=== PATIENT | female | born 1980 | race Caucasian/White ===

== ENCOUNTER 2022-03-09 13:46 | Emergency (ER) | payer MEDICARE, MEDICAID, SELFPAY ==
[2022-03-09 13:56] VITALS: BP 112/80; PULSE 68; O2SAT 99
[2022-03-09 13:57] VITALS: BP 152/59; PULSE 64; RESP 15; TEMP 36.6; O2SAT 98; BMI 24.7
[2022-03-09 15:43] LABS: MANUAL DIFF FLAG NO
[2022-03-09 15:47] LABS: Basophils Percent Auto 0.2 % (0-2); Eosinophils Percent Auto 0.2 % (0-4); Hematocrit 36.5 % (37.0-47.0); Hemoglobin 12.4 g/dl (12.0-16.0); Imm Gran Abs Auto 0.04 X10*3/uL (0.00-0.03); Imm Gran Pct Auto 0.5 % (0.0-0.4); Lymphocytes Absolute Auto 0.9 X10*3/uL (1.2-4.9); Lymphocytes Percent Auto 11.1 % (20-40); Mean Corpuscular Hemoglobin 34.3 pg (27.0-33.0); Mean Corpuscular Volume 101.1 fL (80.0-98.0); Mean Platelet Volume 9.7 fL (9.4-12.3); Monocytes Absolute Auto 0.4 X10*3/uL (0.1-1.2); Monocytes Percent Auto 5.2 % (2-11); Neutrophils Percent Auto 82.8 % (45-73); Platelet Count 282 X10*3/uL (160-400); Red Blood Count 3.61 X10*6/uL (4.20-5.50); Red Cell Distribution Width 12.1 % (11.0-16.0); White Blood Count 8.5 X10*3/uL (4.8-10.8)
[2022-03-09 16:13] LABS: Alanine Aminotransferase 15 U/L (0-31); Albumin Level 4.7 g/dL (3.5-5.0); Alkaline Phosphatase 51 U/L (39-117); Anion Gap 15 (12-20); Aspartate Amino Transferase 16 U/L (5-31); Bilirubin Total 0.7 mg/dL (0.0-1.0); Blood Urea Nitrogen 13 mg/dL (9-16); Calcium 8.9 mg/dL (8.4-10.2); Carbon Dioxide 19 mmol/L (22-29); Chloride 104 mmol/L (96-108); Estimated Glomerular Filt Rate > 60; Glucose Random 146 mg/dL (60-115); Potassium 3.3 mmol/L (3.3-5.1); Sodium 135 mmol/L (135-145)
[2022-03-09] MEDS: 0.9 % Sodium Chloride 1,000 ML 999 ML IV (16:14)
--- NOTE | 2022-03-09 16:53 | ED.SEIZURE ---
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 As per the mother she did not eat breakfast or drink any water in did not take her medications this morning and states she also endorses that her daughter has 2-3 seizures when she is premenstrual. Patient is followed by the Neurology Department here at [facility] [place]. Mother denies any recent fever, chills and patient denies any urinary symptoms. Patient denies any head pain or neck pain. Related Data Allergies Allergy/AdvReac Type Severity Reaction Status Date / Time Unable to Assess Allergy Verified 03/09/22 15:02 Review of Systems Review of Systems: Pertinent positives and negatives as stated in HPI 10 point review of systems is otherwise negative. PMFSH Past Medical History Source: nursing notes reviewed Social History Social History Advance Directives: No Advance Directives Information Provided: Yes Physical Exam Vital Signs: Vital Signs: Last Vital Signs Temp 98 F 03/09/22 13:57 Pulse 64 03/09/22 13:57 Resp 15 03/09/22 13:57 BP 152/59 H 03/09/22 13:57 Pulse Ox 98 03/09/22 13:57 O2 Del Method 03/09/22 13:57 BMI result Body Mass Index 24.7 VITAL SIGNS: Reviewed. GENERAL: Well developed, well nourished, in no acute distress. HEAD: Normocephalic/atraumatic, no pain on palpation, no contusion/hematoma is/abrasions/lacerations EYES: PERRLA, EOMI EARS: Ext canals without abnormality, TMs non-bulging and non-erythematous NOSE: Nares patent bilateral OROPHARYNX: no oral lesions noted, posterior pharynx clear and non-erythematous without noted tonsillar enlargement/erythema/exudates NECK: Supple, no adenopathy LUNGS: Normal breath sounds. No adventitious sounds or accessory muscle use. SpO2<98> CARDIOVASCULAR: Regular rate and rhythm without noted murmurs ABDOMEN: Soft, non-tender, non-distended with bowel sounds. MUSCULOSKELETAL: No tenderness, deformities, or effusions noted on gross inspection. EXTREMITIES: No cyanosis, clubbing or edema. SKIN: Inspection of the skin reveals no rashes NEUROLOGIC: Alert and oriented x 4. Strength and sensation to light touch were grossly intact x 4. Course Course Course Narrative: 41-year-old female with history and clinical presentation consistent with seizure which resulted in a fall which mother states is why her daughter was transported to the hospital. There are no focal deficits and patient is otherwise doing well. Review of all investigations negative for acute findings, patient has tolerated oral intake since arrival and as per mother is at baseline. Signed out to Dr Eli f/kaleigh SANABRIA MDM - Seizure Lab Data Result diagrams: 03/09/22 15:39 03/09/22 15:39 Labs: Lab Results 03/09/22 03/09/22 Range/Units 15:39 15:39 WBC 8.5 (4.8-10.8) X10*3/uL RBC 3.61 L (4.20-5.50) X10*6/uL Hgb 12.4 (12.0-16.0) g/dl Hct 36.5 L (37.0-47.0) % MCV 101.1 H (80.0-98.0) fL MCH 34.3 H (27.0-33.0) pg MCHC 34.0 (31.0-35.0) g/dl RDW 12.1 (11.0-16.0) % Plt Count 282 (160-400) X10*3/uL MPV 9.7 (9.4-12.3) fL Immature Gran % (Auto) 0.5 H (0.0-0.4) % Neut % (Auto) 82.8 H (45-73) % Lymph % (Auto) 11.1 L (20-40) % Wayne % (Auto) 5.2 (2-11) % Eos % (Auto) 0.2 (0-4) % Baso % (Auto) 0.2 (0-2) % Lymph # (Auto) 0.9 L (1.2-4.9) X10*3/uL Wayne # (Auto) 0.4 (0.1-1.2) X10*3/uL Eos # (Auto) 0.0 (0.0-0.4) X10*3/uL Baso # (Auto) 0.0 (0.0-0.2) X10*3/uL Abs Immat Gran (auto) 0.04 H (0.00-0.03) X10*3/uL Absolute Neuts (auto) 7.0 (2.0-8.3) x10*3/uL Absolute Nucleated RBC 0.000 (0.0-0.012) X10*3/uL Nucleated RBC % (auto) 0.0 (0.0-0.2) /100WBC Sodium 135 (135-145) mmol/L Potassium 3.3 (3.3-5.1) mmol/L Chloride 104 (96-108) mmol/L Carbon Dioxide 19 L (22-29) mmol/L Anion Gap 15 (12-20) BUN 13 (9-16) mg/dL Creatinine 0.65 (0.5-1.4) mg/dL Estim Creat Clear Calc 100.0 Estimated GFR > 60 Random Glucose 146 H (60-115) mg/dL Calcium 8.9 (8.4-10.2) mg/dL Total Bilirubin 0.7 (0.0-1.0) mg/dL AST 16 (5-31) U/L ALT 15 (0-31) U/L Alkaline Phosphatase 51 (39-117) U/L Total Protein 7.0 (6.5-8.0) g/dL Albumin 4.7 (3.5-5.0) g/dL Discharge Plan Discharge Clinical Impression: Epileptic seizure, Fall Patient Disposition: Still a Patient Instructions: Recurrent Seizures in Adults (ED), Fall Prevention (ED) Additional Instructions: 1. Resume all home medications as prescribed. 2. Continue stay well hydrated special with water. 3. Please follow-up with your primary care provider in the next 1-2 days. Return to the ER for worsening symptoms. Referrals: Luis Fernando Schmitz MD [Primary Care Provider] -
[2022-03-09 17:38] LABS: Appearance Urine CLEAR; Color Urine YELLOW; Glucose Urine UA NEG (NEG); Leukocyte Esterase Urine TRACE (NEG); Nitrite Urine NEG (NEG); Specific Gravity - Urine <= 1.005 (1.005-1.025); Urine Blood NEG (NEG); Urine Ketones 15 MG/DL (NEG); Urine Protein NEG (NEG-TRACE)
[2022-03-09 17:45] LABS: UPreg QC Valid YES; Urine Pregnancy NEGATIVE (NEGATIVE)
[2022-03-09 18:09] LABS: Amorphous Sediment Urine 3+ /LPF; Bacteria Urine 1+ /LPF; Mucus Urine TRACE /LPF; RBC Urine 0-2 /HPF (0); Squamous Epithelial Cell Urine 1+ /LPF; WBC Urine 0-2 /HPF (0-4)
[2022-03-09 19:03] VITALS: BP 131/76; PULSE 69; RESP 20; TEMP 37.1; O2SAT 98
--- NOTE | 2022-03-09 19:49 | PC.NURSE ---
pt a&o, no sob or chest pain at discharge. reviewed discharge instructions with pt . pt verbalized understanding. Report to pt Nurse Dru HURD.
== END 2022-03-09 19:52 | disposition still patient (30) ==
PROVIDERS: Student in an Organized Health Care Education/Training Program; Emergency Provider Emergency Medicine; PCP Internal Medicine
DX: G40.909 Epilepsy, unspecified, not intractable, without status epilepticus (principal); Z91.81 History of falling
CPT/HCPCS: 36415; 80053; 81001; 81025; 85025; 99283

== ENCOUNTER 2022-03-18 12:02 | Emergency (ER) | payer MEDICARE, MEDICAID, SELFPAY ==
[2022-03-18 12:15] VITALS: BP 121/72; PULSE 71; O2SAT 100
[2022-03-18 12:16] VITALS: BP 110/68; PULSE 68; RESP 19; TEMP 36.6; O2SAT 99; BMI 23.9
--- NOTE | 2022-03-18 13:21 | ED_ITS ---
HPI - Anxiety General Chief Complaint: Seizure Stated Complaint: SZ Time Seen by Provider: 03/18/22 13:08 Source: patient and family (Mother, Manisha) Mode of arrival: EMS Limitations: no limitations History of Present Illness HPI narrative: 41-year-old female who presents emergency department for evaluation of 2 anxiety attacks. The patient's mother's here in the emergency room and the mother states that the patient had meningitis in 2003 and since that time she has short-term memory loss and seizures. Patient also has an anxiety disorder. The patient attends a day program (the [employer]). He was at her day program when she started shaking uncontrollably. The patient states that this was consistent with her anxiety. She then was then bring her food tray back to the kitchen when she had a another anxiety attack. She states she was shaking uncontrollably and was ?out of it ?. The patient states that she was at home she would of just stayed home and rested. However since she was at the program, the called an ambulance the patient was brought to the emergency department for evaluation of possible seizures. Patient states that these episodes were different than her seizure episodes and that these were anxiety attacks. According to the mother, the patient's clobazam was changed from 15 mg twice a day to 10 mg twice a day and since this time she has had more anxiety attacks. Also, the patient is going through menopause the mother believes that this may be triggering more anxiety attacks in the patient. The patient denies being suicidal or homicidal. She states she is feeling fine would like to go home if possible. complaint: anxiety Onset (ago): hour(s) (2) Symptoms: other (Shakiness) Severity: moderate Quality: intermittent Place: other (Day program) History of similar episodes: Yes Provoking factors: none known Relieving factors: nothing Exacerbating factors: nothing Associated symptoms: confusion and other (Shakiness) Related Data Previous Rx's Medication Instructions Recorded clobazam 10 mg tablet 15 mg PO BID 5 days #15 tabs 03/18/22 Allergies Allergy/AdvReac Type Severity Reaction Status Date / Time Unable to Assess Allergy Verified 03/09/22 15:02 Review of Systems Review of Systems: Yes all other systems are reviewed and are negative [facility] Past Medical History [facility] Narrative: Past medical history: Meningitis in 2003 causing memory deficits and seizures, anxiety, panic disorder, cognitive decline, hypothyroidism. Social history: Patient denies tobacco, alcohol and drug use. Social History Social History Advance Directives: No Advance Directives Information Provided: No Physical Exam Vital Signs: Vital Signs: Last Vital Signs Temp 98 F 03/18/22 12:16 Pulse 68 03/18/22 12:16 Resp 19 03/18/22 12:16 BP 110/68 03/18/22 12:16 Pulse Ox 99 03/18/22 12:16 O2 Del Method 03/18/22 12:16 BMI result Body Mass Index 23.9 Const: General: cooperative and no acute distress Orientation/consciousness: oriented to person and oriented to place Limitations: no limitations HEENT: Head: Yes normal to inspection, Yes normocephalic and Yes atraumatic Ears: external ears normal General nose exam: Normal external nose present Face and sinus: Yes normal facial exam Mouth: Normal oral and palatal mucosa present Throat: Yes posterior oropharynx normal Eyes: General: appearance normal, both eyes and all related structures Pupils: Equal, round and reactive pupils present Neck: Neck: Yes normal visual inspection, Yes no lymphadenopathy, Yes trachea midline and Yes supple Chest: Chest palpation & inspection: normal inspection of the chest and normal palpation of entire chest wall Resp: Effort & Inspection: normal respiratory effort and able to speak in complete sentences Auscultation: clear to auscultation bilaterally Cardio: Rate: regular rate Rhythm: regular rhythm Heart sounds: S1 normal heart sound present, S2 normal heart sound present and no murmurs GI: Inspection: Yes normal to inspection Palpation (GI): Soft to palpation, nontender and no guarding Auscultation: normal bowel sounds : General: Yes no CVA tenderness Back/Spine/Pelvis: Back: no CVA tenderness Skin: General skin exam: no rashes or lesions noted Neuro: General: oriented to person and oriented to place Cranial nerves: Yes CN's II-XII intact bilaterally and Yes Equal, round and reactive pupils present Cognition (Neuro): normal cognition Motor exam (neuro): 5/5 motor strength present throughout Extrem: General: Yes normal to inspection Psych: Appearance: grossly normal Speech and movement: Normal speech and movement present Affect: normal affect Attitude: cooperative Thought process: Normal thought process present Thought content: Normal thought content present Course Course Course Narrative: 41-year-old female with history of anxiety disorder and seizure disorder who presents emergency department for 2 anxiety episodes that occurred while she was at her day program. Patient had a recent change in her benzodiazepine to a low er dose and the mother believes that this is caused her to have more anxiety attacks. The patient's physical examination was unremarkable. I did discuss this with the patient and the patient's mother and I will increase the patient's clobazam to 15 mg twice a day, she was given a 5 day supply and she will need to talk to her neurologist to continue this higher dose. Patient and her mother were given verbal and printed instructions and discharged home. Discharge Plan Discharge Clinical Impression: Anxiety attack Patient Disposition: Home, Self-Care Additional Instructions: Continue your medications as prescribed by your doctor. I am increasing your clobazam from 10 mg twice a day back to 15 mg twice a day. I can only give you a 5 day supply of this medication therefore you will have to get your doctor yo prescribed a higher dose for you. Follow-up with your doctor in 2 days. Please return to the emergency department if your symptoms get worse or if you develop any symptoms that are concerning to you. Prescriptions: New clobazam 10 mg tablet 15 mg PO BID 5 Days Qty: 15 0RF
== END 2022-03-18 13:47 | disposition home or self-care (01) ==
PROVIDERS: Emergency Provider Emergency Medicine Emergency Medical Services
DX: F41.9 Anxiety disorder, unspecified (principal)
CPT/HCPCS: 99282; 99283

== ENCOUNTER 2022-04-15 11:24 | Emergency (ER) | payer MEDICARE, MEDICAID, SELFPAY ==
[2022-04-15 11:28] VITALS: BP 102/72; PULSE 83; O2SAT 99
[2022-04-15 11:38] VITALS: BP 81/49; PULSE 68; RESP 18; TEMP 36.6; O2SAT 99; BMI 24.5
--- NOTE | 2022-04-15 12:28 | ED_ITS ---
HPI - Seizure General Chief Complaint: Seizure Stated Complaint: SEIZURE Time Seen by Provider: 04/15/22 11:31 Source: patient, family (Mother ) and EMS Mode of arrival: EMS Limitations: other (Patient has short term memory loss and seizures ) History of Present Illness HPI Narrative: 41-year-old female presenting to the ER via EMS after she had anxiety attack versus seizure prior to arrival while she was a day program ([employer]) that she recently started a few months ago. Mother reports that she had meningitis in 2003 and since then has developed short-term memory loss and seizures. She also has anxiety disorder. She was at her day program today when she reports she fell to the ground and started shaking although she does not remember what else happened. She believes that she might have hit her head. She is not on any blood thinners. She denies any symptoms at this time. She denies any symptoms prior to the seizure. She reports that she occasionally gets seizures when she is going to start her menstrual period. Mother reports that since she was seen here on 03/18/2022 she has continued to use 10 mg of Clobazam although she dropped yesterday and did not actually take it. Mother reports she did take it this morning. Mother reports sick could be the cause due to missing 1 day. She reports she also had her Ativan increased from 2 mg at nighttime she will now be taking it 1 mg in the morning. She took that this morning. Patient denies any fevers, chills, dizziness, headaches, neck pain/stiffness, trouble swallowing or breathing, chest pain or shortness of breath, dyspnea on exertion, paresthesias, palpitations, nausea/vomiting/diarrhea constipation, black or bloody stools, recent travel or sick contacts, nasal congestion/rhinorrhea, cough, rashes, dysuria, hematuria, abnormal vaginal discharge, recent travel or sick contacts or any other symptoms complaints or concerns at this time. 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) Description of Episode: tonic-clonic movement -: second(s) Witnessed: Yes - by Other (see above ) Trauma: No Seizure History: Yes Place: While at the day program Possible Precipitating Event: other (See above) Associated symptoms: denies other symptoms Treatments prior to arrival: none Related Data Previous Rx's Medication Instructions Recorded clobazam 10 mg tablet 15 mg PO BID 5 days #15 tabs 03/18/22 Allergies Allergy/AdvReac Type Severity Reaction Status Date / Time Unable to Assess Allergy Verified 03/09/22 15:02 Review of Systems Review of Systems: Constitutional : No Fever, No Chills, No Night Sweats, No Fatigue, No Malaise ENT/Mouth : No Ear Pain, No Nasal Congestion, No Sinus Pain, No sore throat, No Rhinorrhea Eyes: No Eye Pain, No Swelling, No Redness, No Foreign Body, No Discharge, No Vision Changes Cardiovascular : No Chest Pain, No SOB, No Dyspnea on Exertion, No Orthopnea, No Palpitations Respiratory : No Cough, No Sputum, No Wheezing, No Dyspnea Gastrointestinal : No Nausea, No Vomiting, No Diarrhea, No Constipation, No abdominal Pain, No Hematochezia, No Melena Genitourinary : No Dysuria, No Urinary Frequency, No Urinary Incontinence, No Urgency, No Flank Pain Musculoskeletal : No joint pain, No Myalgias Skin : No lacerations Neuro : + seizures, No Focal weakness, no general weakness, No Numbness, No Paresthesias, No Loss of Consciousness, No Dizziness, No Headache Yes all other systems are reviewed and are negative [facility] Past Medical History Attestation statement: The following information was validated with the patient. Source: old records reviewed, obtained from family and nursing notes reviewed Social History Social History Advance Directives: No Physical Exam Vital Signs: Vital Signs: Last Vital Signs Temp 98 F 04/15/22 11:38 Pulse 68 04/15/22 11:38 Resp 18 04/15/22 11:38 BP 81/49 L 04/15/22 11:38 Pulse Ox 99 04/15/22 11:38 O2 Del Method 04/15/22 11:38 BMI result Body Mass Index 24.5 Vital signs have been reviewed as normal and appeared to be correct. Blood p ressure 81/49. Heart rate normal. Respiration rate normal. Temperature normal. Oxygen saturation normal. Appearance: Alert. Oriented X3. No acute distress. Head: Normal external exam. Normocephalic. Atraumatic. Able to rotate head bilaterally. Eyes: PERRLA. EOMI. No nystagmus noted. Conjunctiva and sclera normal. Eyelids normal. Corneal reflex normal. ENT: EAC normal. TM's Normal. Hearing normal. Pharynx normal. Uvula midline. tongue midline. Moist mucous membranes. No trismus noted. No drooling noted. No muffled voice noted. No nystagmus noted. Neck: Normal inspection. Neck supple. FROM. No adenopathy. Trachea midline. Thyroid Normal. No meningeal signs. No neck mass noted. CVS: Normal heart rate and rhythm. Heart sound normal. No murmurs noted. Pulses normal throughout. Respiratory: No respiratory distress. Painless inspiration. Breath sounds normal. No wheezes/rales/rhonchi noted. Chest nontender. No accessory muscle usage noted or decreased air movement noted. Abdomen: Soft and nontender. Bowel sounds normal in all 4 quadrants. No distention noted. No organomegaly noted. No visible injury noted. Back: No CVA tenderness. Full range of motion noted. Skin: Skin warm and dry. Normal skin color. Normal skin turgor. No rashes/lesions/lacerations noted. Extremities: No lower extremity edema. Extremities exhibit normal range of motion. Extremities nontender. Able to shrug shoulders bilaterally and keep up against resistance. Neuro: Oriented X 3. No motor deficit. No sensory deficit. Reflexes normal. Moving all extremities. No focal motor deficits. Cranial nerves II-XI intact bilaterally. Facial strength normal. Normal cognition. Speech normal. Gait normal. Strength 5/5 throughout. No pronator drift. No tremor noted. No fas ciculations noted. No rigidity noted. Muscle tone normal throughout. No asterixis noted. [id number] test normal. Heel to de la cruz test normal. Tandem gait normal. Does not sway with eyes open. Romberg test negative. Rapid alternating movement upper extremity normal. Rapid alternating movement lower extremity normal. Hand drop from overhead Misses face. Course Course Course Narrative: Mother does not want any labs or imaging done at this time. We did discuss some IV fluids due to patient's low blood sugar although mother is refusing. Patient is also agreeable to mother's decision reports that ?my mother takes good care of me?. She reports that she would not have taken her here to the ER if she was not at the day program. She would have kept her home if she was at home and this seizure happened. Therefore all labs and imaging canceled at this time. I explained to her if she has any new or worsening symptoms she should return immediately. MDM - Seizure Medical Records Attestation: I reviewed the patient's medical records. Lab Data Attestation: I reviewed the patient's lab results. Discharge Plan Discharge Clinical Impression: Epileptic seizure Patient Disposition: Left Against Medical Advice Instructions: Epilepsy (ED) Prescriptions: No Action clobazam 10 mg tablet 15 mg PO BID 5 Days Qty: 15 0RF Interventions: ED Discharge Assessment Last Done: 04/15/22 12:34
== END 2022-04-15 12:35 | disposition left against medical advice (07) ==
PROVIDERS: Emergency Provider Emergency Medicine
DX: G40.909 Epilepsy, unspecified, not intractable, without status epilepticus (principal)
CPT/HCPCS: 99282; 99283

== ENCOUNTER 2025-03-04 12:31 | Outpatient (AMB) | payer MEDICARE, MEDICAID, SELFPAY ==
--- NOTE | 2025-03-04 12:34 | MHC.OFFVIS ---
Intake Visit Reasons: 6 month Accompanied by: Mother Allergies divalproex sodium (From Depakote) Allergy (Unknown, Verified 03/04/25 12:34) Unknown lorazepam Allergy (Unknown, Verified 03/04/25 12:34) Unknown medroxyprogesterone (From Depo-Provera) Allergy (Unknown, Verified 03/04/25 12:34) Unknown phenytoin (From Dilantin) Allergy (Unknown, Verified 03/04/25 12:34) Unknown Medication List - Last Reconciled 03/04/25 by Priya Wood, BRENDAN buspirone 10 mg PO TID clobazam 10 mg PO BID clonazepam (Klonopin) 0.5 mg PO BID folic acid 1 mg PO DAILY hydroxyzine HCl 50 mg PO TID PRN 90 days lacosamide (Vimpat) 200 mg PO BID lamotrigine 350 mg PO BID levetiracetam 1,500 mg PO BID magnesium oxide 250 mg PO DAILY perampanel (Fycompa) 6 mg PO BID sertraline 50 mg PO DAILY HPI Comments Details: She had new VNS put in on 01/03/2025, placed behind ribs so she is unable to touch it. Having some GI symptoms, lot of eructation, has appointment with GI next month. Following with psychiatry and working with therapist. More depressed since sertraline dose decreased to 200mg by psychiatrist. Buspirone from PCP. Still very anxious, uses gummies sometimes which help calm her down some. Anxiety attacks and freezes up. Started PT, doing well, and likes going for the most part. Looking into starting day program with people closer to her age in [place]. Seizures stable on current medications. No major seizures. Had a few small seizures in 04/2024 after psychiatrist increased dose of levetiracetam and ran out of medication. No specific details of events could be provided, but was not grand mal. She was very bothered by feeling of VNS. Previously, said that she could feel VNS moving around inside when she moves in certain positions and she does not feel it is helping her at all. Had 2 small seizures around 11/2023 while lying in bed, no tongue bite or incontinence. Had multiple deaths in the family. Seeing psychiatrist and therapist at [facility] in [place], was given additional dose of hydroxyzine 25mg as needed. Has visiting nurse through [facility] once a month. VNS checked by Damaris 01/02/2024 and 08/31/2023, no changes. VNS checked and adjusted by Damaris 06/01/2023. Sz 08/27/2023 while getting hair done, stared to stare off and would not answer, assisted into chair. No tongue bite or incontinence. Admitted to [facility] for about 1 week in 06/2023. Ongoing anxiety since graduating from college, has trouble leaving house, and often hyperventilating. Seizures are both partial in which her eyes turn to the left, shake briefly, lasts about a minute. Also gets generalized convulsive seizure, sometimes with tongue biting or with a partial urinary incontinence. Previous work up at [facility] neurology. Apparently, the EEG showed multifocal seizures so there was no surgical consideration for epilepsy surgery. VNS implant, uses magnet on daily basis, keeps swiping the magnet to activate the VNS stimulator. Her MRIs in the past were apparently unremarkable, multiple lumbar punctures which were normal. She reports allergies to Depakote, being very mean on Dilantin, reactions to LZP. Her mother is her caregiver to the extent of even going in the shower to help her in the shower because she ends up having her so-called seizures in the shower. Becoming menopausal. [facility] Medical History (Updated 03/04/25 @ 12:39 by Priya Wood CNP) Depression Panic disorder Anxiety Partial seizure disorder Epilepsy Review of Systems Const Denies chills, Denies daytime sleepiness, Denies difficulty sleeping, Reports fatigue, Denies fever(s), Denies frequent falls, Reports headache(s), Denies increased appetite, Denies poor appetite, Denies snoring, Denies weakness, Denies weight gain and Denies weight loss Eyes Denies loss of vision ENT Denies vertigo, Denies dizziness, Reports headache(s) and Denies neck pain Card Denies chest pain at rest, Denies chest pain with activity, Denies syncope, Denies leg edema, Denies palpitations, Denies dyspnea and Denies dyspnea on exertion Resp Denies cough, Denies dyspnea, Denies dyspnea on exertion and Denies snoring GI Denies abdominal pain, Denies constipation, Reports heartburn, Denies diarrhea and Reports nausea Denies urinary frequency, Denies urinary incontinence and Denies urinary urgency Musc Denies abnormal gait, Denies back pain, Denies myalgias, Denies arthralgias, Denies neck pain, Denies numbness and Denies tingling Neuro Denies abnormal gait, Denies vertigo, Denies dizziness, Denies syncope, Denies frequent falls, Reports headache(s), Denies lack of coordination, Denies loss of vision, Reports memory loss, Denies numbness, Denies Other visual disturbances, Denies restless legs, Reports seizure-like activity, Denies tingling, Denies paresthesias, Reports tremor(s) and Denies weakness Psych Reports anxiety, Reports depression, Denies auditory hallucinations, Reports memory loss and Denies visual hallucinations Endo Reports fatigue and Denies palpitations Physical Exam Const Other: General Appearance:? normal, in no acute distress. Heart:? S1, S2 normal, no murmurs. Lungs:? clear anteriorly and posteriorly. Musculoskeletal:? normal. Extremities:? no edema. Psych:? alert, oriented, cognitive function intact, cooperative with exam. Neuro Other: Abnormal Neurological Findings:?Very anxious. Generalized tremor. Mental Status: alert and oriented X 3. Normal attention, orientation, memory, and affect. Cranial Nerves: Pupils are equal, round, and reactive to light. External ocular muscles are intact. Visual pritchett are full, no ptosis. Face is symmetrical, no facial weakness or droop. Facial sensations are normal. Tongue protrudes in midline. Palate elevates symmetrically. Shoulder shrugging is normal Motor Examination: Normal muscle tone, bulk and strength. No atrophy or fasciculations. No drift of the extended upper extremities. DTR 2+. Plantars are flexor. Sensory Exam: Normal light touch, temperature, pinprick, vibration, and joint-position sensations. Rhomberg sign is absent. Coordination: No ataxia. No titubation. Oncwtc-fz-[id number], ziwr-rotf-qjtz test, and rapid alternating movements were normal. Gait Exam: Within normal limits. Cerebellar Signs: Qzvuwd-lj-[id number] and sinz-wr-azha is normal. No dysdiadochokinesia. Extrapyramidal System: Generalized tremor. No rigidity with normal facial expressions. No bradykinesia. No bradyphrenia. Normal arm swing and posture. No propulsion or retropulsion. Speech: Normal. No dysphasia or dysarthria. Assessment & Plan Assessment & Plan (1) Epilepsy: Code(s): G40.909 - Epilepsy, unspecified, not intractable, without status epilepticus Category: Medical Qualifiers: Epilepsy type: unspecified Intractability: not intractable Status epilepticus: without status epilepticus Qualified Code(s): G40.909 - Epilepsy, unspecified, not intractable, without status epilepticus Plan: Continue Fycompa Tablet, 6 MG, 1 tablet twice a day Continue lamoTRIgine Tablet, 100 MG, 3.5 tablets twice a day Continue levETIRAcetam Tablet, 750 MG, 2 tablets twice a day Continue Vimpat Tablet, 200 MG, 1 tablet, Twice a day Continue cloBAZam Tablet, 10 MG, 1 tablet twice a day Continue hydrOXYzine HCl Tablet, 50 MG, 1 tablet as needed three times a day??? 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 (4) Status post VNS (vagus nerve stimulator) placement: Code(s): Z96.89 - Presence of other specified functional implants Category: Surgical Plan . Coding Level of Care Code Est Pt Level 4 (89210) Diagnoses Nonintractable epilepsy without status epilepticus, unspecified epilepsy type G40.909 Epilepsy type: unspecified Intractability: not intractable Status epilepticus: without status epilepticus Psychogenic nonepileptic seizure F44.5 Anxiety F41.9 Status post VNS (vagus nerve stimulator) placement Z96.89
--- OUTSIDE RECORDS SUMMARY | 2025-03-04 12:59 | XMS_ITS | Clinical Summary ---
Author Organization [facility] Address [address] [place] [id number] Care Team Providers Care Bucket Wash Operator Name Role Phone Shelton Espinoza MD Primary Care Provider [phone] Allergies Active Allergy Reactions Criticality Noted Date Comments Phenytoin Sodium Rash High 11/23/2005 Medications levETIRAcetam (Keppra) 500 mg tablet 3 tabs bid 2005 Active topiramate (Topamax) 100 mg tablet 3 TABLETS TWICE DAILY 2005 Active OXcarbazepine (TrileptaL) 300 mg tablet 3 TABLETS in AM after meal 2005 Active Active Problems Problem Noted Date Diagnosed Date 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 ([facility]/HCC V24, CMS/HCC V28) 2005 Immunizations Name Administration Dates Next Due Influenza trivalent, with pr eservative (Fluzone; Afluria) 6mo and older 07/13/2005 PPD Test 12/29/2001 Social History Tobacco Use Types Packs/Day Years Used Date Smoking Tobacco: Never Assessed Comments Unknown Sex and Gender Information Value Date Recorded Sex Assigned at Not on file Legal Sex Female 5:46 AM EST Gender Identity Not on file Sexual Orientation Not on file Plan of Treatment Health Maintenance Due Date Last Done Comments Breast Cancer Screening 1982 DTaP,Tdap,and Td Vaccines (1 - Tdap) 2001 Hepatitis B Vaccines (1 of 3 - 19+ 3-dose series) 2001 Cervical Cancer Screening: P ap Smear 04/14/2009 04/14/2006, 04/14/2006 Hepatitis C Screening 07/04/2022 Social Influencers of Health Screening 07/04/2022 COVID-19 Vaccine (1 - 2023-2 5 season) 2024 Depression Screening 08/01/2024 Influenza Vaccine (#1) 2025 07/13/2005 HIV Screening Completed 05/17/2005 HIB Vaccines Aged Out No longer eligi ble based on patient's age to complete this topic HPV Vaccines Aged Out No longer eligi ble based on patient's age to complete this topic Hepatitis A Vaccines Aged Out No long er eligible based on patient's age to complete this topic IPV Vaccines Aged Out No longer eligi ble based on patient's age to complete this topic MMR Vaccines Aged Out No longer eligi ble based on patient's age to complete this topic Meningococcal ACWY Vaccine Aged Out N o longer eligible based on patient's age to complete this topic Meningococcal B Vaccine Aged Out No l onger eligible based on patient's age to complete this topic Pneumococcal Vaccine: Pediatrics (0 to 5 Years) and At-Risk Patients (6 to 49 Years) Aged Out No longer eligible b ased on patient's age to complete this topic RSV Immunization Patients Under 20 months Aged Out No longer eligible b ased on patient's age to complete this topic Varicella Vaccines Aged Out No longer eligible based on patient's age to complete this topic Procedures Procedure Name Priority Date/Time Associated Diagnosis Comments HPV Routine 04/14/2006 HIV SCREENING Routine 05/17/2005 from Last 3 Months or Most Recently Relevant to Health Maintenance Results * Cervical Cancer Screening: HPV (04/14/2006) Cervical Cancer Screening: HPV no interpretation , abstracted Historical Provider HEALTH MAINTENANCE Final Result * HIV Screening (05/17/2005) HIV Screening abstracted us Historical Provider HEALTH MAINTENANCE Final Result from Last 3 Months or Most Recently Relevant to Health Maintenance Care Teams Bucket Wash Operator Relationship Specialty Start Date End Date Shelton Espinoza MD [address] [place] [address] PCP - General 01/17/06
--- OUTSIDE RECORDS SUMMARY | 2025-03-04 12:59 | XMS_ITS | Clinical Summary ---
Author Organization [facility] Address [address] [address] Phone Care Team Providers Care Operating Room Specialist Name Role Phone Laney Laura MD Primary Care Provider [phone] Allergies Active Allergy Reactions Criticality Noted Date Comments Dolasetron Mesylate Other (See Comments) 2003 agitation Phenobarbital Rash 02/10/2004 Phenytoin Other (See Comments) 02/09/2004 fever Medications cloNIDine HCL (CATAPRES) 0.2 MG tablet Take 0.2 mg by mouth daily. Active hydrOXYzine (ATARAX) 50 MG tablet Take 50 mg by mouth every 8 (eight) hours as needed for itching. Active busPIRone (BUSPAR) 7.5 MG tablet Take 7.5 mg by mouth 3 (three) times a day. Active lacosamide (VIMPAT) 150 mg Tab Take 200 mg by mouth 2 (two) times a day. Active folic acid (FOLVITE) 1 MG tablet Take 1 mg by mouth daily. Active magnesium oxide 250 mg (150 mg elemental) Tab Take 250 mg by mouth daily. Active clonazePAM (KLONOPIN) 0.5 MG tabletIndicatio ns:Takes 0.5mg every morning, 1mg every evening Take 0.5 mg by mouth 2 (two) times a day. Indications: Takes 0.5mg every morning, 1mg every evening Active sertraline (ZOLOFT) 50 MG tablet Take 3 tablets (150 mg total) by mouth daily. 90 tablet 2 06/11/2023 Active cloBAZam (ONFI) 10 mg Tab Take 1 tablet (10 mg total) by mouth 2 (two) times a day. 60 tablet 3 06/11/2023 Active lamoTRIgine (LAMICTAL) 100 MG IMMEDIATE release tablet Take 3.5 tablets (350 mg total) by mouth 2 (two) times a day. 210 tablet 2 06/11/2023 Active levETIRAcetam (KEPPRA) 750 MG tablet Take 2 tablets (1,500 mg total) by mouth 2 (two) times a day. 120 tablet 2 06/11/2023 Active perampanel 6 mg Tab Take 1 tablet (6 mg total) by mouth 2 (two) times a day. 60 tablet 3 06/11/2023 Active levothyroxine (SYNTHROID,LEVO THROID) 25 MCG tablet Take 1 tablet (25 mcg total) by mouth every morning. 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 Not on iban e 06/03/2023 Are you concerned about learning? Not on file 06/03/2023 No 06/03/2023 No 06/03/2023 Digital Access Answer Date Recorded No 06/03/2023 No 06/03/2023 Reliable internet access at home? Not on file 06/03/2023 Device with a working camera? Not on file Intimate Partner Violence Answer Date R ecorded Are you denied basic needs s uch as food, clothing, or medical care? No 06/03/2023 In the past 12 months have y ou been in a relationship with a person who hurts, threatens, or tries to control you? No 06/03/2023 Are you denied basic needs s uch as food, clothing, or medical care? No 06/03/2023 In the past 12 months have y ou been in a relationship with a person who hurts, threatens, or tries to control you? No 06/03/2023 Comments No Sex and Gender Information Value Date Recorded Sex Assigned at Not on file Legal Sex Female 6:29 PM EST Gender Identity Not on file Sexual Orientation Not on file Last Filed Vital Signs Vital Sign Reading Time Taken Comments Blood Pressure 99/69 06/11/2023 9:06 AM EST Pulse 78 06/11/2023 7:31 AM EST Temperature 36.5 C (97.7 F) 06/11/2023 7:31 AM EST Respiratory Rate 18 06/11/2023 7:31 AM EST Oxygen Saturation 96% 06/11/2023 7:31 AM EST Inhaled Oxygen Concentration - - Weight 50.1 kg (110 lb 7.2 oz) 06/05/2023 5:07 P M EST Height 152.4 cm (5') 06/06/2023 12:00 PM EST Body Mass Index 21.57 06/05/2023 5:07 PM EST Plan of Treatment Health Maintenance Due Date Last Done Comments Adult Td,Tdap Booster 1982 BLOOD PRESSURE 1982 DEPRESSION SCREENING 1994 HEPATITIS C SCREENING 2000 LIPID PANEL 2000 PNEUMOCOCCAL VACCINES (0-49 years) (1 of 2 - PCV) 2001 PAP SMEAR 11/10/2003 SMOKING STATUS SCREENING (On ce After 26 Yrs) 2008 DIABETIC EYE EXAM 09/21/2014 URINE MICROALBUMIN/CREATININ E RATIO 09/21/2014 MAMMOGRAM 2022 HEMOGLOBIN A1C 12/03/2023 06/04/2023 COVID-19 VACCINE ( - 2023-2 5 season) 2024 TSH LEVEL 06/04/2024 06/04/2023 HIV ONE-TIME SCREENING (18-6 5 YEARS) Completed 02/11/2004 HEPATITIS A VACCINES Aged Out No long er eligible based on patient's age to complete this topic HIB VACCINES Aged Out No longer eligi ble based on patient's age to complete this topic MENINGOCOCCAL VACCINES (ACWY) Aged Out No longer eligible based on patient's age to complete this topic MENINGOCOCCAL VACCINES (B) Aged Out N o longer eligible based on patient's age to complete this topic Medical Devices Implanted Type Area Senior Physician Device Identifier Shelf Expiration Date Model / Serial / Lot Stimulator-08/01 Implanted:08/01 (Quantity not on file) Stimulator Chest 106 / / Description:[employer]iPrescreens #220 model 106. VNS Procedures Procedure Name Priority Date/Time Associated Diagnosis Comments HEMOGLOBIN A1C Routine 06/04/2023 7:31 AM EDT TSH WITH REFLEX Routine 06/04/2023 7:31 AM EDT from Last 3 Months or Most Recently Relevant to Health Maintenance Results * TSH with reflex (06/04/2023 7:31 AM EDT) TSH 3.16 0.50 - 5.70 uIU/mL [facility] Blood 06/04/2023 7:31 AM EDT 06/04/2023 7:44 AM EDT us Aubrey Quach MD LAB BLOOD ORDERABLES Final Re sult Performing Organization Address City/State/[facility] Co de Phone Number [facility] [address] [place] [phone] * Hemoglobin A1c (06/04/2023 7:31 AM EDT) HEMOGLOBIN A1C 4.9 4.2 - 5.6 % [facility] Comment: HbA1c levels 5.7-6.4% represent pre-diabetes, indicating impaired glucose control and an increased risk of developing diabetes. The diagnostic HbA1c level for diabetes is 6.5% or greater. HbA1c is performed by the Cristal Rachele-quant immunoassay method which does not detect (incidental) hemoglobin variants. Hemoglobin electrophoresis should be ordered in patients with suspected hemoglobinopathies. CALC MEAN BLD GLUC 93 mg/dL [facility] Comment: The Calculated Mean Blood Glucose (CMBG) represents the estimated average glucose calculated from the measured hemoglobin A1c (HbA1c). There is no established normal range for the CMBG, however a 5.6% HbA1c (upper limit of normal) represents a CMBG of 114 mg/dL. Blood 06/04/2023 7:31 AM EDT 06/04/2023 7:44 AM EDT us Aubrey Quach MD LAB BLOOD ORDERABLES Final Re sult [facility] [address] [place] [phone] from Last 3 Months or Most Recently Relevant to Health Maintenance Insurance MEDICARE PART A & B [facility] MEDICARE PART A & B [place]ALTH MEDICARE PART A & B Member Subscriber Plan / Payer (Ef fective 2006-Present) Name:Char Villa Member ID:[id number] Relation to Subscriber:Self Name:Char Villa Subscriber ID:[id number] Payer ID:[id number] Group ID:Not on file Type:Medicare Address: [address] [employer] [address] & B [employer] MEDIC[facility] PART A & B HEALTH MEDICARE PART A & B [facility] MEDICARE PART A & B [facility] Advance Directives For more information, please contact: [phone] (9AM - 5PM [place], Tuesday-Tuesday) Documents on File Type Date Recorded Patient Instructor Of Education Expl anation Healthcare Proxy 06/14/2023 2:34 PM * Full Code (Latest Code Status on File) Date Activated Date Inactivated Comments 06/04/2023 12:32 AM Question Answer Comments Code Status Confirmed With: Family Care Teams Operating Room Specialist Relationship Specialty Start Date End Date Laney Laura MD [address] [place] [phone] PCP - General 01/29/14 Additional Source Comments The information contained in this document represents components of the legal health record. It is not the complete legal health record.[facility]
--- OUTSIDE RECORDS SUMMARY | 2025-03-04 12:59 | XMS_ITS | Clinical Summary ---
Author Organization [facility] Address [address] [place] [address] Care Team Providers [place] Health Officer Name Role Phone Luis Fernando Schmitz MD Primary Care Provider Allergies Active Allergy Reactions Criticality Noted Date Comments Dolasetron Mesylate Other (see comments) 2003 agitation Lamotrigine Rash 10/02/2024 Lorazepam Behavioral Problems, Emotional Distress,Hyperactivity,Panic Attacks,Seizure High 01/10/2004 Phenobarbital Rash 02/10/2004 Phenytoin Other (see comments),Rash High 02/09/2004 fever Valproic Acid Unknown 10/02/2024 Medications busPIRone (BUSPAR) 10 mg tablet 10 mg 3 times a day. Active sertraline (ZOLOFT) 100 mg tablet Take 100 mg by mouth 2 (two) times a day. Active folic acid (FOLVITE) 1 mg tablet Take 1 mg by mouth once a day. Active magnesium oxide (MAG-OX) 400 mg (241.3 mg mag) tablet Take 400 mg by mouth once a day. Active clonazePAM (KlonoPIN) 0.5 mg tablet Take 0.5 mg by mouth. Per pt take 0.5 mg in the a.m and 1.0 mg evening after dinner Active hydrOXYzine (ATARAX) 50 mg tablet SMARTSI Tablet(s) By Mouth 3 Times Daily PRN Active lacosamide (Vimpat) 200 mg tablet tabletIndicatio ns:Focal epilepsy with impairment of consciousness, intractable (HCC) Take 1 tablet (200 mg total) by mouth every 12 hours. 180 tablet 1 5 Active lamoTRIgine (LaMICtal) 100 mg tabletIndicatio ns:Focal epilepsy with impairment of consciousness, intractable (HCC) Take 3.5 tablets (350 mg total) by mouth 2 times a day. 630 tablet 3 5 Active cloBAZam (ONFI) 10 mg tabletIndicatio ns:Focal epilepsy with impairment of consciousness, intractable (HCC) Take 1 tablet (10 mg total) by mouth 2 times a day. 180 tablet 1 5 Active levETIRAcetam (KEPPRA) 500 mg tabletIndicatio ns:Focal epilepsy with impairment of consciousness, intractable (HCC) Take 1.5 tablets (750 mg total) by mouth 2 times a day. 270 tablet 3 5 Active Fycompa 6 mg tabletIndicatio ns:Focal epilepsy with impairment of consciousness, intractable (HCC) Take 1 tablet (6 mg total) by mouth 2 (two) times a day. 180 tablet 1 5 Active Keppra 750 mg tabletIndicatio ns:Focal epilepsy with impairment of consciousness, intractable (HCC) Take 2 tablets (1,500 mg total) by mouth 2 times a day. 360 tablet 3 5 025 Discontinued Active Problems Problem Noted Date Diagnosed Date Status post placement of VNS (vagus nerve stimulation) device 10/02/2024 Overview (02/08/2025): blogfoster M1000 Serial Number [id number] VNS interrogation: Output Current (mA): 1.75, Signal Frequency (Hz): 30, Pulse Width (usec): 500, Signal ON Time (sec): 30, Signal OFF Time (min): 3, Magnet Output Current (mA): 2, Magnet ON Time (sec): 60, Magnet Pulse Width (usec): 500, AutoStim Output Current (mA): 1.875, AutoStim Pulse Width (usec): 500, AutoStim ON Time (sec): 60, Tachycardia Detection ON/OFF: ON, Heartbeat Detection Sensitivity (1-5): 1, Perform Verify Heartbeat Detection (y/n): Y, Threshold for AutoStim (%): 20 System diagnostics: Output Current (OK/Low): OK, Current Delivered (mA): 1.75, Lead Impedance (OK/High/Low): OK, Impedance Value (Ohms): 2106, Battery Status Indicator (Color): 75-100% Assessment & Plan (02/08/2025 10:51 PM EDT): - post-generator replaced device interrogated and device diagnostics assessed, 75-100% battery status - no re-programing performed Assessment & Plan (10/02/2024 12:27 PM EST): - will refer to Dr. 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 ONSET: 2003, 23yo meningitis in college with STM with seizures SEMIOLOGY: 1) Typical FIAS: wavelike sensation in her head, sighs and freezes up/arm stiffen, ?turning to the left, and someone typically catches her may secondarily generalize. Has not had a GTC in a while. 4-5/mo 2) Recently, preceded by anxiety, she just falls down and she's aware, able to get up off the floor. 5-8/mo. WORK-UP: Jun 2023 cEEG [facility] [place] -- This 4-day senior living monitoring EEG captured at least 83 seizures. The majority emanate from the left temporal lobe, some from the right temporal lobe, and some have onsets that difficult to lateralize as seizure activity is seen in both temporal lobes. There are subtle clinical signs associated with most of the left temporal seizures as above, including occasional mild confusion. The record is otherwise abnormal due to abundant independent bilateral temporal discharges, often appearing as prolonged runs of LPDs on the left or brief bursts of discharges on the right. These findings are consistent with electrographic status epilepticus (at times with clinical correlation) and the ictal and interictal manifestations of bilateral independent temporal lobe epilepsy. December [address] w/o contrast No evidence of intracranial hemorrhage, mass effect or midline shift. Sep 2007 MRI Brain with and without contrast 1. Questionable T2 hyperintensity of the bodies of the hippocampi. Clinical correlation is recommended. 2. Inflammatory change in paranasal sinus. Air-fluid level in the right maxillary sinus. Assessment & Plan (10/02/2024 12:38 PM EST): - continue lacosamide 200mg BID - continue fycompa 6mg BID - continue lamotrigine 350mg BID - continue keppra 1500mg BID - continue clobazam 10mg BID - refer VNS generator replacement - will check ASM levels and discuss how the medication may be consolidated and address patient's excessive anxety. - consider possible trial of decreasing Keppra to assess interval change and also possibly consolidating or bringing down dosage of Lacosamide and Lamotrigine. - likely would still benefit from having a rescue medication, will discuss with family next visit - referred to specialty pharmacy for Fycompa as local pharmacy keep running out of medication Seizure precautions were reviewed as well as side effects of the medication(s). The patient knows to contact me should side effects occur. I spent a total of 75 minutes on the date of encounter, which included: Obtaining and/or reviewing separately obtained history Performing a medically appropriate exam and/or evaluation Counseling and educating the patient/family/caregiver Ordering medications, tests, procedures Documenting clinical information in the health record Anxiety disorder 08/24/2012 Dysthymic disorder 08/24/2012 Encounters Date Type Department Care Team Description 02/19/2025 Refill [facility] [address] [place] [id number] Brittney Cooper MD Focal epilepsy with impairment of consciousness, intractable (HCC) 02/18/2025 Refill [facility] [address] [address] Brittney Cooper MD Focal epilepsy with impairment of consciousness, intractable (HCC) 02/05/2025 3:00 PM EDT Office Visit [facility] [address] [address] Brittney Cooper MD Focal epilepsy with impairment of consciousness, intractable (HCC) (Primary Dx); Post-encephalitic syndrome; Panic disorder without agoraphobia; Generalized anxiety disorder; Dysthymic disorder; Cognitive disorder; Status post placement of VNS (vagus nerve stimulation) device 02/05/2025 Refill [facility] [address] [place] [address] Brittney Cooper MD Focal epilepsy with impairment of consciousness, intractable (HCC) 02/04/2025 Telephone [facility] [address] [place] [address] Telephone Intake, Staff PAC Clinical Questions-Kenneth from Last 3 Months Immunizations Immunization Administration Dates Next Due INFLUENZA, SPLIT VIRUS, TRIVALENT, PF 05/21/2013 Influenza, Trivalent, MDV, Injectable 06/12/2014 Family History Medical History Relation Name Comments Other Maternal Grandfather Family History of prostate cancer Relation Name Status Comments Maternal Grandfather Social History Tobacco Use Types Packs/Day Years Used Date Smoking Tobacco: Never Smokeless Tobacco: Never Tobacco Cessation:Counseling Given: Not Answered Comments:: Alcohol Use Standard Drinks/Week Comments Never 0 (1 standard drink = 0.6 oz pur e alcohol) Comments Unknown Sex and Gender Information Value Date Recorded Sex Assigned at Female 10/01/2024 9:56 PM EST Legal Sex Female 12:03 AM EDT Gender Identity Female 10/01/2024 9:56 PM EST Sexual Orientation Straight 10/01/2024 9: 56 PM EST Last Filed Vital Signs Vital Sign Reading Time Taken Comments Blood Pressure 125/73 02/05/2025 2:48 PM EDT Pulse 91 02/05/2025 2:48 PM EDT Temperature 36.8 C (98.2 F) 10/02/2024 11:02 AM EST Respiratory Rate 18 02/05/2025 2:48 PM EDT Oxygen Saturation 98% 10/02/2024 11:02 AM EST Inhaled Oxygen Concentration - - Weight 59 kg (130 lb) 02/05/2025 2:48 PM EDT Height 152.4 cm (5') 10/02/2024 11:02 AM EST Body Mass Index 25.39 10/02/2024 11:02 AM EST Plan of Treatment Upcoming Encounters Date Type Department Care Team (Late st Contact Info) Description 07/23/2025 3:30 PM EST Office Visit [facility] [address], [place] [phone] Brittney Cooper MD [address], [place] [id number] Health Maintenance Due Date Last Done Comments HIV Screening 1982 Hepatitis C Screening 1982 Medicare AWV 11/10/1983 Varicella Vaccines (1 of 2 - 13+ 2-dose series) 11/10/1995 Hepatitis B Vaccines (1 of 3 - 19+ 3-dose series) 2001 Pap Smear 10/10/2016 10/10/2013, 0908/2009, 04/01/2009, Additional history exists Cervical Cancer Screening 10/10/2018 HPV and Pap Smear 10/10/2018 10/10/2013, , 04/01/2009 Mammogram 2022 COVID-19 Vaccine ( season) 2024 Alcohol/Substance Use Screening 08/01/2024 Depression Screening and Follow-Up 08/01/2024 Social Drivers of Health Annual Screening 08/01/2024 Influenza Vaccine (#1) 2025 3, 06/09/2020, 08/15/2019, Additional history exists DTaP,Tdap,and Td Vaccines (2 - Td or Tdap) 07/14/2028 07/14/2018 RSV Vaccine (60+ years old and patients) (1 - 1-dose 75+ series) 2057 Pneumococcal Vaccine: Pediatric (0-5 Years) and At-Risk Patients (6-50 Years) Aged Out 08/25/2010 No longer eligible based on patient's age to complete this topic Procedures * Due to [place] state law, this organization might not be sharing negative HIV tests. Procedure Name Priority Date/Time Associated Diagnosis Comments PAP W/REFLEX HPV, CONVERSION Routine 10/10/2013 11:18 AM EDT from Last 3 Months or Most Recently Relevant to Health Maintenance Results * Due to [place] state law, this organization might not be sharing negative HIV tests. * Pap w/Reflex HPV (10/10/2013 11:18 AM EDT) Path Procedure TPGAS ([id number]) 1 Edited by: [id number] - [address] [facility] ANATOM[facility] PATH[facility] - [facility] Specimen Labeled As: 1 CERVICAL/ENDOCERVI MIAN CYTO MATERIAL - Edited by: [id number] - 111[address] [facility] ANATOMIC PATHOLOGY - [facility] THREE Diagnosis ThinPrep Pap Test Adequacy: Satisfactory for evaluation Interpretation: Negative for Intraepithelial Lesion or Malignancy Shift in belkis suggestive of bacterial vaginosis Remarks/Recommenda tions: This is the result of a morphological screening test with an inherent probability of a false negative interpretation. HPV testing in combination with a morphological Pap test reduces the probability of a serious cervical epithelial abnormality in patients over age 30 and is cost-effective. Screening guidelines can be found in Journal Lower Genital Tract Disease 17(5):S1-S27 (2013). This Pap test was examined in accordance with the [facility] written policy, which incorporates all CLIA mandates. This Pap test was examined by the [facility] System, [employer], [place], [place]. Edited by: [id number] [phone] [phone] ANATOMIC PATHOLOGY - BI[facility] THREE Gynecologic Clinical Data Specimen source:, THINPREP (VAGINAL, CERVICAL AND ENDOCERVICAL) [facility] ANATOM[facility] PATHOLOGY - [facility] Gynecologic Clinical Data First date of LMP:, 09/01/13 [facility] - [facility] Pathology Codes Client Order Code:, [email or web address] [facility] - [facility] Pathology Codes Bill Type:, CLIENT [facility] - [facility] Marker 1 NILM,NILM [facility]AT[facility] - [facility] Marker 2 QCKF,QC [facility] - [facility] Marker 3 [facility] ANATOMIC PATHOLOGY - [facility] THREE Cc Results To KAREN JULIO REF [id number] [facility]AT[facility]OLOG[facility] - [facility] Signature REPORT SIGNED: MARIANO FERNÁNDEZ 10/22/13 [facility] - [facility] Sign Out Audit MARIANO FERNÁNDEZ [id number] FINAL [place] [phone] [id number] [facility]ATOM[facility] PATHOLOG[facility] - [facility] Cytology / Unknown 4 11:18 AM EDT 10/15/2013 11:18 AM EDT us Laney Laura MD LAB HISTORICAL RESULTS Final Result [facility] - [facility] [address] [place] [address], [place] from Last 3 Months or Most Recently Relevant to Health Maintenance Insurance [facility] MEDICARE Care Teams County Health Officer Relationship Specialty Start Date End Date Luis Fernando Schmitz MD [address] [place] [address] PCP - General Internal Medicine 02/28/24
== END 2025-03-04 13:12 | disposition home or self-care (01) ==
LOC: HO.HSM 12:32
PROVIDERS: PCP Internal Medicine; Referring Provider Internal Medicine; Visit Provider Registered Nurse
DX: F44.5 Conversion disorder with seizures or convulsions (principal); F41.9 Anxiety disorder, unspecified; Z96.89 Presence of other specified functional implants
CPT/HCPCS: 99214

== ENCOUNTER → 2025-03-04 12:31 | Outpatient (BNVA) | payer MEDICARE, MEDICAID, SELFPAY | PROVIDERS: PCP Internal Medicine; Referring Provider Internal Medicine; Visit Provider Registered Nurse | DX: F44.5 Conversion disorder with seizures or convulsions (principal); G40.909 Epilepsy, unspecified, not intractable, without status epilepticus; F41.9 Anxiety disorder, unspecified; Z96.89 Presence of other specified functional implants; Z79.899 Other long term (current) drug therapy | CPT/HCPCS: 99212 ==

== ENCOUNTER 2025-04-26 19:35 | Inpatient (IN) | payer MEDICARE, MEDICAID, SELFPAY ==
--- OUTSIDE RECORDS SUMMARY | 2025-04-24 14:20 | XMS_ITS | Encounter Summary ---
Author Organization [facility] Address [address] [place] [address] Care Team Providers Care Measurement Operator Name Role Phone Shelton Espinoza MD Primary Care Provider [phone] Reason for Visit * Reason Comments Altered Mental Status * Auth/Cert (Routine) Specialty Diagnoses / Procedures Referred By Contac t Referred To Contact Diagnoses Agitation History of seizure Altered mental status, unspecified altered mental status type AMS (altered mental status) Procedures . Efrain Medina MD [address] [place] [address] Phone: tel: fax: [facility] [address] [place] [phone] Phone: tel: Referral ID Status Reason Start Date Expiration Date Visits Re quested Visits Authorized [id number] 1 1 Encounter Details Date Type Department Care Team (Latest Contact Info) Description 04/24/2025 2:20 PM EDT - 04/26/2025 7:23 PM EDT Hospital Encounter [facility] [address] [place] [phone] Lacey Diaz MD [address] [place] [phone] Abrahan Castellanos MD [address] [place] [phone] Jose Lacy MD [address] [place] [phone] Efrain Medina MD [address] [place], [place] [id number] Lam Cortez MD [address] [place], [place] [phone] Dick Spivey MD [address] [place] [phone] Altered mental status, unspecified altered mental status type (Primary Dx); Agitation; History of seizure; Generalized nonconvulsive epilepsy with intractable epilepsy ([facility] V24, [facility] V28) Discharge Disposition: Home or Self Care Social History Tobacco Use Types Packs/Day Years Used Date Smoking Tobacco: Never Passive Smoke Exposure: Never Smokeless Tobacco: Never Tobacco Cessation:Counseling Given: Not Answered Food Risk Answer Date Recorded Within the past 12 months we worried whether our food would run out before we got money to buy more. Not asked 04/26/2025 Within the past 12 months th e food we bought just didn't last and we didn't have money to get more. Not asked 04/26/2025 Interpersonal Safety Answer Date Record ed Physical Abuse 04/26/2025 Verbal Abuse 04/26/2025 Comments Unknown Sex and Gender Information Value Date Recorded Sex Assigned at Not on file Legal Sex Female 5:46 AM EST Gender Identity Not on file Sexual Orientation Not on file documented as of this encounter Last Filed Vital Signs Vital Sign Reading Time Taken Comments Blood Pressure 107/71 04/26/2025 4:11 PM EDT Pulse 74 04/26/2025 4:11 PM EDT Temperature 36.9 C (98.4 F) 04/26/2025 3:50 PM EDT Respiratory Rate 20 04/26/2025 3:50 PM EDT Oxygen Saturation 100% 04/26/2025 4:11 PM EDT Inhaled Oxygen Concentration - - Weight 59.9 kg (132 lb 0.9 oz) 04/26/2025 6:00 A M EDT Height 152.4 cm (5') 04/24/2025 5:57 PM EDT Body Mass Index 25.79 04/24/2025 5:57 PM EDT documented in this encounter Discharge Instructions * Discharge Instructions* DANIEL Astorga - 04/26/2025 5:47 PM EDT Avoid marihuana use Follow up with Neurology in 2-4 weeks * Attachments The following attachments cannot be sent through Care Everywhere. * Perampanel (Tristanian) * Fluvoxamine (Tristanian) * Clobazam (Tristanian) * Lacosamide (Tristanian) documented in this encounter Medications at Time of Discharge cloBAZam (ONFI) 10 mg tabletIndications:H istory of seizure,Generalized nonconvulsive epilepsy with intractable epilepsy (CMS/HCC V24, CMS/HCC V28) Take 1 tablet (10 mg total) by mouth 2 (two) times a day. Max Daily Amount: 20 mg 60 tablet 04/26/2025 fluvoxaMINE (LUVOX) 100 mg tablet Take 1 tablet (100 mg total) by mouth at bedtime. 30 each 04/26/2025 lacosamide (VIMPAT) 200 mg tablet tablet Take 1 tablet (200 mg total) by mouth 2 (two) times a day. Max Daily Amount: 400 mg 60 tablet 04/26/2025 lamoTRIgine (LaMICtal) 25 mg tablet Take 14 tablets (350 mg total) by mouth 2 (two) times a day. 840 each 04/26/2025 levETIRAcetam (KEPPRA) 750 mg tablet Take 2 tablets (1,500 mg total) by mouth 2 (two) times a day. 120 each 04/26/2025 sertraline (ZOLOFT) 25 mg tablet Take 1 tablet (25 mg total) by mouth 1 (one) time each day for 3 doses. 3 each 04/28/2025 sertraline (ZOLOFT) 50 mg tablet Take 1 tablet (50 mg total) by mouth 1 (one) time each day for 1 dose. 1 each 04/27/2025 5 perampanel (FYCOMPA) 6 mg tablet Take 1 tablet (6 mg total) by mouth 2 (two) times a day. Max Daily Amount: 12 mg 60 tablet 04/26/2025 5 documented as of this encounter Ordered Prescriptions Prescription Sig Dispense Quantity Refills Last Filled Start Date End Date sertraline (ZOLOFT) 50 mg tablet Take 1 tablet (50 mg total) by mouth 1 (one) time each day for 1 dose. 1 each 04/27/2025 sertraline (ZOLOFT) 25 mg tablet Take 1 tablet (25 mg total) by mouth 1 (one) time each day for 3 doses. 3 each 04/28/2025 5 fluvoxaMINE (LUVOX) 100 mg tablet Take 1 tablet (100 mg total) by mouth at bedtime. 30 each 04/26/2025 5 perampanel (FYCOMPA) 6 mg tablet Take 1 tablet (6 mg total) by mouth 2 (two) times a day. Max Daily Amount: 12 mg 60 tablet 04/26/2025 lamoTRIgine (LaMICtal) 25 mg tablet Take 14 tablets (350 mg total) by mouth 2 (two) times a day. 840 each 04/26/2025 lacosamide (VIMPAT) 200 mg tablet tablet Take 1 tablet (200 mg total) by mouth 2 (two) times a day. Max Daily Amount: 400 mg 60 tablet 04/26/2025 cloBAZam (ONFI) 10 mg tabletIndications:H istory of seizure,Generalized nonconvulsive epilepsy with intractable epilepsy (CMS/HCC V24, CMS/HCC V28) Take 1 tablet (10 mg total) by mouth 2 (two) times a day. Max Daily Amount: 20 mg 60 tablet 04/26/2025 levETIRAcetam (KEPPRA) 750 mg tablet Take 2 tablets (1,500 mg total) by mouth 2 (two) times a day. 120 each 04/26/2025 5 documented in this encounter Discharge Disposition Disposition Code Departure Means Destination Comment s Home or Self Care Wheelchair documented in this encounter Progress Notes * Ruchi Crabtree RN - 04/26/2025 7:13 PM EDT Pt discharged home with mom and dad. Both parents upset that pt was being discharged and felt she was not ready and mentally unstable. I informed mom and dad that psychiatry evaluated pt this morningand deemed her capable to make medical decisions and stated she did not meet criteria for inpatientpsych bed/section 12. I informed parents that they can bring her to another hospital that has inpatient psych for a 2nd opinion. I discussed pt's med list and tapering schedule with parents. I wheeled pt outside to her parents car. * Mariluz Farrar LCSW - 04/26/2025 2:49 PM EDT Sw received a call from [facility] ext [phone] she stated that the pt is apart of there community outreach program she was looking for an update on her d/c plan tw let her know pt was not medically cleared but she was seen by psych and has medical decision making capacity * Jemima Prado, IZZY - 04/26/2025 1:44 PM EDT 04/26/2025 @ 1:46 PM EDT Nutrition Initial Assessment Reason for RD Intervention: Assessment Type: Nutrition Trigger Reason for Assessment: High MST Score Anthropometrics: Height: 152.4 cm (60 ) Weight: 59.9 kg (132 lb 0.9 oz) BMI (Calculated): 25.8 BMI Class: Overweight IBW (lbs): 100 ABW Needed: No Current Diet and Supplements: Dietary Orders (From admission, onward) Start Ordered 04/25/25 1721 Adult diet [facility]; General; Regular Diet effective now Question Answer Comment Location [facility] Diet Type (req) General General Diet Regular 04/25/25 1720 History of presenting illness: Patient is a 44 y.o. female with a history of Past Medical History: Diagnosis Date Seizures (CMS/HCC V24, CMS/HCC V28) History reviewed. No pertinent surgical history. admitted 04/24/2025 with AMS (altered mental status). Food/Nutrition History: Previously prescribed diets: (pt was unsure of weight loss prior to admission per nursing screening.) Social Influencers of Health & Nutrition - Hunger Vital Signs: Within the past 12 months we worried whether our food would run out before we got money to buy more: Not asked Within the past 12 months the food we bought just didn't last and we didn't have money to get more: Not asked Who obtained answers? Unable to complete at this time. Assistance: Unable to determine at this time Weight History: Wt Readings from Last 10 Encounters: 04/26/25 59.9 kg (132 lb 0.9 oz) Subjective Assessment: Pt admitted for altered mental status and seizure activity, family trying to wean pt off Zoloft. Psychology and neurology following. Normal EEG, no acute findings on head CT. No BM since admission. Skin intact. Weights: 59.9 04/26 standing, 59 kg stated 04/24 Nutrition-Related Lab Values: Results from last 7 days Lab Units 04/26/25 0542 04/24/25 1741 04/24/25 1518 SODIUM mmol/L 141 -- 139 POTASSIUM mmol/L 4.1 -- 3.6 MAGNESIUM mg/dL -- -- 2.2 CHLORIDE mmol/L 109 -- 107 CO2 mmol/L 26 -- 26 BUN mg/dL 9 -- 15 CREATININE mg/dL 0.65 -- 0.50 EGFR mL/min/1.73m2 113 -- 120 CALCIUM mg/dL 8.9 -- 8.6 POCT GLUCOSE -- < > -- GLUCOSE mg/dL 88 -- 73 WBC AUTO K/mcL 7.3 < > -- < > = values in this interval not displayed. No results found for: LIPASE Medications: cloBAZam, 10 mg, oral, BID clonazePAM, 0.5 mg, oral, Daily clonazePAM, 1 mg, oral, Nightly fluvoxaMINE, 100 mg, oral, Nightly hydrOXYzine pamoate, 50 mg, oral, TID lacosamide, 200 mg, oral, BID lamoTRIgine, 350 mg, oral, BID levETIRAcetam, 1,500 mg, oral, BID [START ON 04/28/2025] sertraline, 25 mg, oral, Daily sertraline, 50 mg, oral, Daily CONTINUOUS: PRN medications: acetaminophen, bisacodyL, LORazepam Food/Nutrition-Current Status: Intake Type: P.O. Current Diet Status: Appropriate Intake Amount (%): Unable to Assess Intake Assessment: Unable to Assess Main IVF: None Propofol?: No Nutrition Focused Physical Findings: Overall Appearance: unable to assess, staff in with pt Skin: intact (per [employer] charting) Nutrition Diagnosis: Code Type: None Identified Status: New Diagnosis: No Acute Nutrition Dx Nutrition Interventions: Collaboration and Referral of Nutrition Care Collaboration and Referral of Nutrition Care: Collaborate with Other Providers (monitor intake, addnutrition supplement if intake is less than 60% of meals) Nutrition Education No need for education at this time Goals: Patient will consume greater than or equal to 75% meals., Monitor/control glucose levels, Electrolytes within normal range., Maintain weight., Stooling appropriately., and Maintain skin integrity. Coordination of Patient Care: Discussed with RN via [employer] Secure Chat/Haiku. Monitoring/Evaluation: Follow Up: Nutrition Priority Level: Moderate RD remains available and will continue to follow. Signature: Jemima Prado RD * Mariluz Farrar LCSW - 04/26/2025 11:54 AM EDT 04/26/25 1154 Initial Transition Plan Initial Transition Plan Home Back up Transition Plan Back up Transition plan Home ED Transition Plan ED Transition Plan Home w/Community Resources Discharge Planning Living Arrangements Family members Type of Residence Private residence Assistive Devices None Support Systems Parent;Children Medication Coverage Has Med Coverage Under Insurance Plan Yes Medication Affordability No concerns related to payment for meds Anticipated Discharge Needs Home Health Social Work Discipline following for SNF placement Cement Crusher Operator Informed Choice Informed Choice Given? Yes Transportation Transportation at discharge Family Final Discharge Disposition Home or Self Care Time Spent Time Spent (minutes) 20 minutes Sw met with the pt to confirm demographics pt states that she lives with her mother and daughter housing is safe she is able to return pt states that she lives on the 3rd floor pt is not a [place] she does not use O2 in the home no DME preferred pharmacy [facility] [place] sw will follow for d/c planning * Milagro Nunez MD - 04/26/2025 9:06 AM EDT Connected to patient's room via I-pad with help from quality assurance/r&d lab technician; assistance much appreciated. Patient consented verbally to visit via Telehealth video conferencing modality. Patient educated asto likely differences between Telehealth care and face to face care. Patient informed of the risks and benefits of using Telehealth services and procedures and likely risks and benefits of using alternatives to Telehealth services. Patient informed of the right to refuse Telehealth services at any time without jeopardizing his/her right to future care, services or benefits. Patient was informed that he/she is being seen solely by Milagro Nunez MD today via secure audio/visual connection in alocked virtual exam room. Persons present on patient's end: Patient Persons present on provider's end in [place]: Milagro Nunez MD CHART REVIEWED, PATIENT INTERVIEWED. CHIEF COMPLAINT: AMS Time spent on encounter: 19 min (14 min face to face, 5 min in chart review and documentation) Billing: [facility] HISTORY OF PRESENT ILLNESS Char Villa is a 44 y.o. female with psychiatric history significant for anxiety, depression, andpanic and medical history significant for but not limited to epilepsy, DM, cognitive disorder, encephalitis, GERD, hypothyroidism, and VNS device placement who was admitted for altered mental status.Psychiatry was consulted for complex psych history. The patient states that she is doing okay andis better than yesterday. She feels that her confusion tends to be worse in the morning time, but she is feeling more clear than yesterday. She knows that she is in the hospital because of her seizures and falls. She is hoping to be able to go home soon. She feels less anxious than before, but her mood is still a little low. She denies any panic attacks over the past day. She expressly denies anyparanoia at present; she trusts and loves her family members. She denies any AVH. The patient denies any suicidal ideations, plan, or intent. REVIEW OF SYSTEMS CONSTITUTIONAL: The patient denies fevers, chills, sweats and body ache. HEENT: Denies SMITH, blurry vision, eye pain, tinnitus, vertigo, gingival bleeding, sore throat, neck or thyroid masses. RESPIRATORY: Denies cough, sputum, hemoptysis. CARDIAC: Denies chest pain, pressure, palpitations, irregular heartbeats. Denies lower extremity edema. GASTROINTESTINAL: Denies abdominal pain, changes in bowel habits or any bleeding on toilet paper. GENITOURINARY: Denies dysuria, hematuria, nocturia or frequency. NEUROLOGIC: Denies headaches, dizziness, syncope. MUSCULOSKELETAL: Negative for arthritis. Denies muscle weakness. No limitation in range of motion. VASCULAR: Denies claudication and cramping. ENDOCRINOLOGY: Denies heat or cold intolerance. HEMATOLOGY: Denies easy bleeding or blood transfusion. DERMATOLOGY: Denies changes in moles or pigmentation changes. Psychiatric ROS: Depression: See HPI. Nery: The patient denies elevated/expansive mood, decreased need for sleep, grandiosity, pressuredspeech, flight of ideas, distractibility, increase in goal directed activity, and hypersexuality. Psychosis: The patient denies audio or visual hallucinations, delusions, thought broadcasting, thought insertion, delusions of reference, catatonia, or disorganized speech or behavior. Anxiety: See HPI. Panic: See HPI. PTSD: The patient does not endorse any current s/s related to PTSD. OCD: The patient denies intrusive thoughts, repetitive behaviors, counting, checking, washing, symmetry, or grouping and ordering that take up more than 1 hour of the day. Eating Disorder: The patient denies feeling overweight, excessive dieting or exercise to lose weight, overuse of laxatives, binging/purging behaviors, and amenorrhea. MEDICAL HISTORY Non-psychiatric medical history: Past Medical History: Diagnosis Date Seizures ([facility] V24, [facility] V28) Current medications: cloBAZam, 10 mg, oral, BID clonazePAM, 0.5 mg, oral, Daily clonazePAM, 1 mg, oral, Nightly fluvoxaMINE, 100 mg, oral, Nightly hydrOXYzine pamoate, 50 mg, oral, TID lacosamide, 200 mg, oral, BID lamoTRIgine, 350 mg, oral, BID levETIRAcetam, 1,500 mg, oral, BID [START ON 04/28/2025] sertraline, 25 mg, oral, Daily sertraline, 50 mg, oral, Daily ALLERGIES: Allergies Allergen Reactions Phenytoin Sodium Rash Dolasetron Agitation Phenobarbital RASH Valproic Acid UNKNOWN MSE: Appearance: Alert and oriented to person, type of place, and time with some of situation. Appears stated age, well groomed. Pleasant and cooperative. Adequate eye contact. No psychomotor agitation orretardation. No evidence of EPS. Wears glasses. Muscle tone/station: WNL. Orientation: See above. Attention and Concentration: Mildly confused at times. Speech: Normal rate, rhythm, volume, and tone. Mood: Better. Affect: Mostly euthymic with access to full range, mood congruent. No lability noted. Thought Process: Only mildly confused today. No FOI or COLLEEN. No thought blocking. Thought Content: Denies suicidal/homicidal ideation. Denies auditory/visual hallucinations. No delusions. No paranoia. Perception/associations: Denies hallucinations, somatic complaints, or tactile disturbances Suicidal Ideations: Pt denies SI, intent, or plan. Low acute risk. Currently is future oriented, motivated for treatment, and compliant with medications. Homicidal Ideations: Pt denies HI, intent, or plan. Low acute risk. No history of violence. No access to firearms. Behavior: No abnormal behavior during interview. Fund of Knowledge: Appropriate for age and level of education Intellect/Memory: Estimated as average based on interview. Immediate, recent, and remote memory is grossly intact. Language: No deficits Judgment/Insight: fair at present. Musculoskeletal Exam: Movement: [x]normal []abnormal [-]dyskinesias [-]tremors [-]tics Station: [x]upright []hyperflexed/stooped []hyperextended Muscle strength [x]appears normal [-]appears abnormal Muscle tone: [x]normal [-]muscle rigidity LABS: Admission on 04/24/2025 Component Date Value Ref Range Status WBC 04/24/2025 11.5 (H) 4.8 - 10.8 K/mcL Final RBC 04/24/2025 3.90 3.80 - 4.80 M/mcL Final Hemoglobin 04/24/2025 12.2 11.5 - 16.0 g/dL Final Hematocrit 04/24/2025 37.6 35.0 - 47.0 % Final MCV 04/24/2025 97.2 79.0 - 98.0 FL Final MCH 04/24/2025 31.5 27.0 - 32.0 pcg Final MCHC 04/24/2025 32.4 32.0 - 37.0 g/dL Final RDW 04/24/2025 12.9 11.0 - 15.0 % Final Platelets 04/24/2025 324 130 - 400 K/mcL Final MPV 04/24/2025 9.2 7.0 - 11.0 FL Final NRBC 04/24/2025 0.0 <1.0 % Final NRBC Absolute 04/24/2025 0.00 <0.10 K/mcL Final Sodium 04/24/2025 139 133 - 145 mmol/L Final Potassium 04/24/2025 3.6 3.5 - 5.5 mmol/L Final Chloride 04/24/2025 107 96 - 110 mmol/L Final CO2 04/24/2025 26 21 - 32 mmol/L Final Anion Gap 04/24/2025 6 3 - 11 Final Glucose 04/24/2025 73 70 - 100 mg/dL Final BUN 04/24/2025 15 5 - 25 mg/dL Final Creatinine 04/24/2025 0.50 0.50 - 1.10 mg/dL Final eGFR 04/24/2025 120 >=60 mL/min/1.73m2 Final Calculation based on the Chronic Kidney Disease Epidemiology Collaboration (CKD- EPI) equation refitwithout adjustment for race. BUN/Creatinine Ratio 04/24/2025 30.0 Final Calcium 04/24/2025 8.6 8.5 - 10.5 mg/dL Final hCG Qual 04/24/2025 Negative Negative Final Magnesium 04/24/2025 2.2 1.9 - 2.6 mg/dL Final High Sensitivity Troponin I 04/24/2025 4 <=54 ng/L Final TSH 04/24/2025 2.23 0.40 - 4.00 mcIU/mL Final Ethanol Level 04/24/2025 <3 0 - 10 mg/dL Final Amphetamine Screen, Ur 04/24/2025 Negative Negative Final Certain OTC medications containing ephedrine, phenylephrine, pseudoephedrine and phenylpropanolamine can cause false positive results. Barbiturate Screen, Ur 04/24/2025 Negative Negative Final Benzodiazepine Screen, Ur 04/24/2025 Positive (A) Negative Final Cocaine Screen, Ur 04/24/2025 Negative Negative Final Opiate Screen, Ur 04/24/2025 Negative Negative Final Cannabinoid (THC) Screen, Ur 04/24/2025 Positive (A) Negative Final Specimens from patients taking pantoprazole sodium (Protonix) have been shown to produce false positive results. Oxycodone Screen, Ur 04/24/2025 Negative Negative Final Fentanyl, Ur 04/24/2025 Negative Negative Final Specific [place] Urine 04/24/2025 1.021 1.003 - 1.030 Final pH, Urine 04/24/2025 6.5 5.0 - 8.0 pH Final Leukocytes, Urine 04/24/2025 Trace (A) Negative Final Nitrite, Urine 04/24/2025 Negative Negative Final Protein, Urine 04/24/2025 Negative <=Trace mg/dL Final Glucose, Urine 04/24/2025 Negative Negative mg/dL Final Ketones, Urine 04/24/2025 Negative Negative mg/dL Final Urobilinogen, Urine 04/24/2025 0.2 0.2 - 1.0 mg/dL Final Bilirubin, Urine 04/24/2025 Negative Negative Final Blood, Urine 04/24/2025 Negative Negative Final RBC, Urine 04/24/2025 4.0 0 - 4 /HPF Final WBC, Urine 04/24/2025 2.2 0 - 4 /HPF Final Squamous Epithelial, Urine 04/24/2025 34 0 - 60 /LPF Final Bacteria, Urine 04/24/2025 Negative Negative /HPF Final Hyaline Casts, Urine 04/24/2025 0.4 0 - 3 /LPF Final Extra Tube 04/24/2025 Hold for add-ons. Final Auto resulted. Culture, Urine 04/24/2025 Culture in progress Preliminary Lactate 04/25/2025 2.1 (H) 0.4 - 2.0 mmol/L Final Total CK 04/25/2025 215 22 - 269 unit/L Final Glucose POCT 04/25/2025 110 (H) 70 - 100 mg/dL Final Ammonia 04/25/2025 65 (H) 11 - 35 mcmol/L Final Sodium 04/26/2025 141 133 - 145 mmol/L Final Potassium 04/26/2025 4.1 3.5 - 5.5 mmol/L Final Chloride 04/26/2025 109 96 - 110 mmol/L Final CO2 04/26/2025 26 21 - 32 mmol/L Final Anion Gap 04/26/2025 6 3 - 11 Final Glucose 04/26/2025 88 70 - 100 mg/dL Final BUN 04/26/2025 9 5 - 25 mg/dL Final Creatinine 04/26/2025 0.65 0.50 - 1.10 mg/dL Final eGFR 04/26/2025 113 >=60 mL/min/1.73m2 Final Calculation based on the Chronic Kidney Disease Epidemiology Collaboration (CKD- EPI) equation refitwithout adjustment for race. BUN/Creatinine Ratio 04/26/2025 13.8 Final Calcium 04/26/2025 8.9 8.5 - 10.5 mg/dL Final WBC 04/26/2025 7.3 4.8 - 10.8 K/mcL Final RBC 04/26/2025 3.70 (L) 3.80 - 4.80 M/mcL Final Hemoglobin 04/26/2025 11.5 11.5 - 16.0 g/dL Final Hematocrit 04/26/2025 35.2 35.0 - 47.0 % Final MCV 04/26/2025 95.1 79.0 - 98.0 FL Final MCH 04/26/2025 31.1 27.0 - 32.0 pcg Final MCHC 04/26/2025 32.7 32.0 - 37.0 g/dL Final RDW 04/26/2025 12.8 11.0 - 15.0 % Final Platelets 04/26/2025 287 130 - 400 K/mcL Final MPV 04/26/2025 9.4 7.0 - 11.0 FL Final NRBC 04/26/2025 0.0 <1.0 % Final NRBC Absolute 04/26/2025 0.00 <0.10 K/mcL Final Neutrophils Relative 04/26/2025 43.0 % Final Lymphocytes Relative 04/26/2025 45.2 % Final Monocytes Relative 04/26/2025 6.7 % Final Eosinophils Relative 04/26/2025 4.4 % Final Basophils Relative 04/26/2025 0.4 % Final Immature Granulocytes Relative 04/26/2025 0.3 % Final Neutrophils Absolute 04/26/2025 3.14 1.50 - 7.00 K/mcL Final Lymphocytes Absolute 04/26/2025 3.30 1.00 - 5.00 K/mcL Final Monocytes Absolute 04/26/2025 0.49 0.20 - 1.00 K/mcL Final Eosinophils Absolute 04/26/2025 0.32 0.00 - 0.50 K/mcL Final Basophils Absolute 04/26/2025 0.03 0.00 - 0.20 K/mcL Final Immature Granulocytes Absolute 04/26/2025 0.02 0.00 - 0.03 K/mcL Final VITALS: BP: 91/66 (04/26 415) Heart Rate: 70 (04/26 415) Heart Rate Source: Monitor (04/24 1420) Temp: 36.6 ??C (97.9 ??F) (04/26 415) Temp Source: Temporal (04/26 4) SpO2: 99 % (04/26 415) ASSESSMENT: Char Villa is a 44 y.o. female with psychiatric history significant for anxiety, depression, andpanic and medical history significant for but not limited to epilepsy, DM, cognitive disorder, encephalitis, GERD, hypothyroidism, and VNS device placement who was admitted for altered mental status.Psychiatry was consulted for complex psych history. DSM-5 DIAGNOSIS: AMS, improving/improved Persistent depressive disorder OSIEL Panic disorder Epilepsy, DM, cognitive disorder, encephalitis, GERD, hypothyroidism, and VNS device placement Admitted for altered mental status TREATMENT PLAN: Pt has verbalized understanding and given consent/agreement with medications and plan offered. LEVEL OF CARE: Continue current level of treatment. RECOMMENDATIONS: Of note, it is the opinion of the patient has regained capacity and can make her own medical decisions. Also of note, the patient does not meet criteria for psychiatric admission to hospital or Section 12 at this time. Continue to hold Buspar for now to decrease serotonergic activity. Taper and discontinue Zoloft - 50 mg PO daily x 3 days (through 04/27/25), then 25 mg PO daily x 3 days (04/28/25 - 04/30/25), then discontinue. Cautiously continue Luvox 100 mg PO qHS. Cautiously continue Hydroxyzine Pamoate 50 mg PO TID. Lamictal per neurology. Medication Education: Risks, benefits, alternatives, and potential side effects were discussed withthe patient. Patient voiced understanding and agreed with medication regimen described above. LABS: Reviewed and discussed most recent labs results. MEDICATION CONTRACT: Patient agreed to take medication only as prescribed and acknowledges that services may be terminated if prescription abuse is observed. SAFETY PLAN: Patient is to alert team if symptoms worsen. Team will monitor for development of suicidal ideations or an acute medication reaction. - Call 911 or present to nearest Emergency Room in case of crisis / suicidal thoughts upon discharge. EDUCATION/CONSENT: Discussed and explained all diagnoses including differential diagnosis and treatment options. Discussed risks, benefits, potential side effects, contraindications, potential drug-drug interactions, alternatives to current medications and medication allergies as noted above. Discussed continuing to monitor for side effects and treatment efficacy prospectively and delineated patient's involvement and responsibility in monitoring for side effects and efficacy. Daniel addison expressed understanding of these recommendations. BARRIERS TO LEARNING: Patient demonstrates a readiness to learn. Patient verbalizes understanding and agrees to plan. No barriers to communication noted. MEDICATION RECONCILIATION: Medications were reviewed and reconciled with the patient. PREVENTATIVE RECOMMENDATIONS: Preventative Health Education Counseling: discussed proper diet/nutrition, exercise, and sleep hygiene. The patient was encouraged to avoid nicotine, alcohol and illicit drugs at all times. The patient was made aware that records from the u/s can be sent to his/her PCP at any time that he/she requests. * Reagan Coburn RN - 04/24/2025 2:14 PM EDT Pt BIBA from home for altered mental status. Per EMS pt and family were trying to ween pt off of Zoloft and she started acting erratically yesterday. * Lacey Diaz MD - 04/24/2025 2:09 PM EDT HPI Chief Complaint Patient presents with Altered Mental Status 44-year-old female with past medical history of seizures, generalized anxiety disorder, panic disorder presenting to the ED due to concern for abnormal behavior. Mother reports since Tuesday patienthas appeared agitated. States she is screaming and throwing things. On Tuesday she fell down although mother noticed no seizure activity. States she was walking to the bathroom and suddenly became dizzy. Did hit her head without LOC. Also had a fall today without convulsions. Patient is on several antiepileptic medications and also has a vagal nerve stimulator in place. Is compliant with medications. Is on Vimpat 200 mg twice daily, lamotrigine 350 mg twice daily. Keppra 1500 mg twice daily and c lobazam 10 mg twice daily, as well as fycompa. No recent changes in seizure medications but was reportedly titrated down on her sertraline from 200 mg to 100 mg about 5 days ago. She was also startedon Luvox 100 mg at nighttime 6 days ago. Further history limited secondary to patient agitation. Although mother states symptoms began to worsen about 4 days ago patient sister at bedside states patient has been having ongoing issues for several months. 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 -ONSET: 2003, 23yo meningitis in college with STM with seizures -EEG SEMIOLOGY: 1) Typical FIAS: wavelike sensation in her head, sighs and freezes up/arm stiffen, ?turning to the left, and someone typically catches her may secondarily generalize. Has not had a GTC in a while. 4-5/mo 2) Recently, preceded by anxiety, she just falls down and she's aware, able to get up off the floor. 5-8/mo. Per EEG in 2022: subtle clinical signs associated with most of the left temporal seizures as above, including occasional mild confusion Other medical history: Generalized anxiety disorder (Chronic) Panic disorder without agoraphobia (Chronic) Cognitive disorder (Chronic) Dysthymic disorder (Chronic) Hx vagal nerve stimulator placement (placed by Neurologist: Anabella Grace MD (last seen at [facility] in January 2025) by Dr Cooper Catina Coma Scale Score: 14 Patient History Past Medical History: Diagnosis Date Seizures ([facility] V24, [facility] V28) No past surgical history on file. No family history on file. Social History Tobacco Use Smoking status: Not on file Smokeless tobacco: Not on file Substance Use Topics Alcohol use: Not on file Drug use: Not on file Review of Systems Review of Systems Physical Exam ED Triage Vitals [04/24/25 1420] Temp Heart Rate Resp BP 36.8 ??C (98.3 ??F) 67 18 132/81 SpO2 Temp Source Heart Rate Source Patient Position 100 % Oral Monitor Lying BP Location FiO2 (%) Right arm -- Physical Exam ED Course & [facility] ED Course as of 04/26/251928Apr 24, 2025 1645 Spoke with patient's neurologist (Dr Garrido) -reports patient with significant history of both anxiety and pseudoseizures . Recommends EEG. No other recs at this time. [JW] 1943 Call out to [facility] for possible transfer [JW] 2100 Admission declined by hospitalist given patient's complex seizure history as well as care by neurology at [facility]. Also concern given no neurology in house. [JW] 2118 At this time will plan to transfer to [facility] tomorrow as a direct admit given patient followed there and is well know to the neurology team there. Will re-assess if patient begins to demonstratesclinical deterioration. [JW] ED Course User Index [JW] Lacey Diaz MD Clinical Impressions as of 04/26/251928 Altered mental status, unspecified altered mental status type Agitation History of seizure Medical Decision Making 44-year-old female presenting to the ED due to concern for increasing agitation at home. Patient with complex history of subclinical seizures associated with enter/postictal psychosis. On multiple seizure medications and has been compliant with these as per mother. Has been admitted previously to [facility]. Recent appointment with Dr. Cooper. On arrival to ED patient is speaking loudly. Easily distractible and rapidly loses train of thought. No notable convulsions. Answering some questions. On chart review it appears patient with a history of subclinical seizures where she has exhibited this agitation/restlessness. Given Versed IM. Keppra also administered. No significant lab abnormalities noted. UDS positive for benzos (administered in ED) as well as cannabinoids (patient endorses use of marijuana). CT head negative for acute intracranial process. I did discuss this patient with Dr Garrido (neurologist who has seen patient previously) who is recommending EEG. No additional intervention at this time. Given patient's complex history hospitalist is recommending transfer to outside facility.Given patient has been seen at [facility] most recently will attempt transfer to this facility. Discussion with [facility]. Transfer center discussed case with patient's neurologist Dr. Cooper. Neurologyis concerned given possibility of psych versus neurological issue. Recommending possible psychiatric consult. Unable to direct admit at this time. Given capacity ER unable to transfer to the ER. Recommending calling back tomorrow after psych consult (if patient cleared by psych) states they might be able to direct admit patient to the floor. At time of transfer to oncoming physician patient is slightly agitated and restless although improved from arrival. Family is at bedside and will return in the morning. Patient sisters (Ines) information in chart. Evening medications administered. Critical Care Time Total critical care time: Approximately 120 minutes Due to a high probability of clinically significant, life threatening deterioration, the patient required my highest level of preparedness to intervene emergently and I personally spent this criticalcare time directly and personally managing the patient. This critical care time included obtaining a history; examining the patient; pulse oximetry; ordering and review of studies; arranging urgent treatment with development of a management plan; evaluation of patient's response to treatment; frequent reassessment; and, discussions with other providers. This critical care time was performed to assess and manage the high probability of imminent, life-threatening deterioration that could result in multi-organ failure. It was exclusive of separately billable procedures and treating other patients and teaching time. Procedures Lacey Diaz MD 04/26/251929 * Jose Lacy MD - 04/24/2025 2:09 PM EDT See original note for HPI and MDM Patient is a 44-year-old female with history of seizure disorder brought in to the ER for abnormal behavior. Patient was medically cleared by primary physician here in the ER. Pt was signed out to me by Dr. Abrahan Castellanos pending crisis evaluation Psych recommendations this morning RECOMMENDATIONS: Discussed the plan with the patient's mother via phone call during this encounter. The patient's mother is HCPOA and is in agreement with the following: Of note, it is the opinion of the u/s that the patient lacks medical decision- making capacity at this time. HCPOA should be invoked/utilized. Also of note, the patient does not meet criteria for psychiatric admission to hospital or Section 12 at this time. Hold Buspar for now to decrease serotonergic activity. Taper and discontinue Zoloft - 50 mg PO daily x 3 days, then 25 mg PO daily x 3 days, then discontinue. Cautiously continue Luvox 100 mg PO qHS. Cautiously continue Hydroxyzine Pamoate 50 mg PO TID. Lamictal per neurology. Per initial note by Dr. Diaz. Dr. Diaz spoke with [facility] and patient's neurologist who is concern for psych gross neurological that she recommend a psych consult. They are unable to transfer patient to [facility] at that time. The plan was to reach out to [facility] after psych consult this morning for possible transfer. 1005 I spoke with [facility] transfer center, pending call back. 1134 [facility] transfer center called back stated they do not capacity and cannot accept patient at this time. 117p I discussed patient with on-call neurologist Dr. Villanueva, she recommends admit to Obs for 24 hours Repeat drug level tomorrow morning No changes to patient's clinical status occurred under my care. Patient was admitted to medicine. oJse Lacy MD 04/25/25 0717 Jose Lacy MD 04/25/25 1001 Jose Lacy MD 04/25/25 1012 Jose Lacy MD 04/25/25 1136 Jose Lacy MD 04/25/25 1320 Jose Lacy MD 04/25/25 1713 documented in this encounter Procedure Notes * Dl White MD - 04/26/2025 2:32 PM EDTAssociated Order(s): Routine EEG Post-Procedure Diagnose(s): Altered mental status, unspecified altered mental status type Images from the original note were not included. Routine EEG Date/Time: 04/26/2025 2:32 PM Performed by: Dl White MD Authorized by: DANIEL Magaña ROUTINE ELECTROENCEPHALOGRAPHY (EEG) REPORT Study Date: 04/26/25 Clinical Information History: Char Villa is a 44 y.o. woman with epilepsy admitted with AMS. Medications: Current Facility-Administered Medications: acetaminophen (TYLENOL) tablet 650 mg, 650 mg, oral, q6h PRN, DANIEL Magaña bisacodyL (DULCOLAX) EC tablet 10 mg, 10 mg, oral, Daily PRN, DANIEL Magaña cloBAZam (ONFI) tablet 10 mg, 10 mg, oral, BID, Lacey Diaz MD, 10 mg at 04/26/25 0932 clonazePAM (KlonoPIN) tablet 0.5 mg, 0.5 mg, oral, Daily, Lacey Diaz MD, 0.5 mg at 04/26/25 0932 clonazePAM (KlonoPIN) tablet 1 mg, 1 mg, oral, Nightly, Lacey Diaz MD, 1 mg at 04/25/252157 fluvoxaMINE (LUVOX) tablet 100 mg, 100 mg, oral, Nightly, Lacey Diaz MD, 100 mg at 04/25/252199 hydrOXYzine pamoate (VISTARIL) capsule 50 mg, 50 mg, oral, TID, Lacey Diaz MD, 50 mg at lacosamide (VIMPAT) tablet 200 mg, 200 mg, oral, BID, Lacey Diaz MD, 200 mg at 04/26/2532 lamoTRIgine (LaMICtal) tablet 350 mg, 350 mg, oral, BID, Lacey Diaz MD, 350 mg at 04/26/25932 levETIRAcetam (KEPPRA) tablet 1,500 mg, 1,500 mg, oral, BID, Lacey Diaz MD, 1,500 mg at LORazepam (ATIVAN) injection 2 mg, 2 mg, intravenous, q4h PRN, DANIEL Magaña [START ON 04/28/2025] sertraline (ZOLOFT) tablet 25 mg, 25 mg, oral, Daily, Milagro Nunez MD sertraline (ZOLOFT) tablet 50 mg, 50 mg, oral, Daily, Milagro Nunez MD, 50 mg at 04/26/25 0933 Recording Techniques A digital video EEG was performed using the standard international 10-20 electrode placement and single channel EKG electrode. Total Recording Time: 27 minutes Montages: Standard 10-20 system montages Type of Study: Routine EEG Video recorded: Yes Conditions of Recording: Awake - drowsy Results Background: The record was well organized. The waking EEG was characterized by a symmetrical, well-formed and modulated 10 Hz posterior dominant rhythm, with medium amplitude (20-70 uV) and reactive to eye opening. The background over the rest of the head consisted of a mixture of alpha and beta frequencies. Sleep: During drowsiness, the alpha rhythm attenuated and diffuse background slowing appeared. Stage 2 sleep was not recorded. Focal slowing: Intermittent polymorphic slowing, bilateral temporal R>L, delta and theta Epileptiform discharges: None Activation Procedures: Hyperventilation: Not performed Photic Simulation: Produced an occipital driving response at some frequencies, but did not result in any abnormal discharges. Clinical events: None Heart Rate: Normal sinus rhythm Classification of the findings: Intermittent polymorphic slowing, bilateral temporal R>L, delta and theta Impression This is an abnormal routine EEG recording in the awake and drowsy states. There were no seizures, periodic patterns, or epileptiform discharges. There is intermittent polymorphic delta and theta slowing in the bilateral temporal head regions, R>L indicative of focal cerebral dysfunction in thoseregions. However, the absence of epileptiform abnormalities does not preclude a clinical diagnosis of seizures. Clinical correlation is advised. CC No ref. provider found Dl White MD Epileptologist [facility] * Dl White MD - 04/25/2025 12:23 PM EDTAssociated Order(s): EEG Post-Procedure Diagnose(s): Altered mental status, unspecified altered mental status type EEG Date/Time: 04/25/2025 12:23 PM Performed by: Dl White MD Authorized by: Lacey Diaz MD ROUTINE ELECTROENCEPHALOGRAPHY (EEG) REPORT Study Date: 04/25/25 Clinical Information History: Char Villa is a 44 y.o. woman with epilepsy admitted with AMS. Medications: Current Facility-Administered Medications: cloBAZam (ONFI) tablet 10 mg, 10 mg, oral, BID, Lacey Diaz MD, 10 mg at 04/25/25 0922 clonazePAM (KlonoPIN) tablet 0.5 mg, 0.5 mg, oral, Daily, Lacey Diaz MD, 0.5 mg at 04/25/25 0921 clonazePAM (KlonoPIN) tablet 1 mg, 1 mg, oral, Nightly, Lacey Diaz MD fluvoxaMINE (LUVOX) tablet 100 mg, 100 mg, oral, Nightly, Lacey Diaz MD, 100 mg at 04/24/25 701 hydrOXYzine pamoate (VISTARIL) capsule 50 mg, 50 mg, oral, TID, Lacey Diaz MD, 50 mg at 921 lacosamide (VIMPAT) tablet 200 mg, 200 mg, oral, BID, Lacey Diaz MD, 200 mg at 04/25/25920 lamoTRIgine (LaMICtal) tablet 350 mg, 350 mg, oral, BID, Lacey Diaz MD, 350 mg at 04/25/25919 levETIRAcetam (KEPPRA) tablet 1,500 mg, 1,500 mg, oral, BID, Lacey Diaz MD, 1,500 mg at [START ON 04/28/2025] sertraline (ZOLOFT) tablet 25 mg, 25 mg, oral, Daily, Milagro Nunez MD sertraline (ZOLOFT) tablet 50 mg, 50 mg, oral, Daily, Milagro Nunez MD, 50 mg at 04/25/25920 Current Outpatient Medications: levETIRAcetam (Keppra) 500 mg tablet, 3 tabs bid, Disp: , Rfl: OXcarbazepine (TrileptaL) 300 mg tablet, 3 TABLETS in AM after meal, Disp: , Rfl: topiramate (Topamax) 100 mg tablet, 3 TABLETS TWICE DAILY, Disp: , Rfl: Recording Techniques A digital video EEG was performed using the standard international 10-20 electrode placement and single channel EKG electrode. Total Recording Time: 27 minutes Montages: Standard 10-20 system montages Type of Study: Routine EEG Video recorded: Yes Conditions of Recording: Awake - drowsy Results Background: The record was well organized. The waking EEG was characterized by a symmetrical, well-formed and modulated 10 Hz posterior dominant rhythm, with medium amplitude (20-70 uV) and reactive to eye opening. The background over the rest of the head consisted of a mixture of alpha and beta frequencies. Sleep: During drowsiness, the alpha rhythm attenuated and diffuse background slowing appeared. Stage 2 sleep was not recorded. Focal slowing: There were no focal abnormalities or persistent asymmetries. Epileptiform discharges: None Activation Procedures: Hyperventilation: Not performed Photic Simulation: Produced an occipital driving response at some frequencies, but did not result in any abnormal discharges. Clinical events: None Heart Rate: Normal sinus rhythm Classification of the findings: Normal Impression This is a normal routine EEG recording in the awake and drowsy states. There were no seizures, periodic patterns, or epileptiform discharges. There is no focal slowing or persistent focal asymmetriesof the background rhythms. However, the absence of epileptiform abnormalities does not preclude a clinical diagnosis of seizures. Clinical correlation is advised. CC No ref. provider found Dl White MD Epileptologist [facility] documented in this encounter Consult Notes * Mariza Villanueva MD - 04/26/2025 12:34 PM EDTAssociated Order(s): IP CONSULT TO NEUROLOGY TeleNeurology Consult Reason for consult: AMS History obtained from: Patient and EMR/Housestaff Referring physician: Dick Spivey MD History of Present Illness: Char Villa is sitting on her bed, she is confused and not able to provide meaningful information. Past medical, surgical, social and family histories were reviewed and noted in EMR Current medications were reviewed and noted in EMR PAST MEDICAL HISTORY Past Medical History: Diagnosis Date Seizures ([facility] V24, [facility] V28) HOME MEDICATIONS Medications Prior to Admission Medication Sig Dispense Refill Last Dose/Taking levETIRAcetam (Keppra) 500 mg tablet 3 tabs bid OXcarbazepine (TrileptaL) 300 mg tablet 3 TABLETS in AM after meal topiramate (Topamax) 100 mg tablet 3 TABLETS TWICE DAILY MEDICATIONS Scheduled Meds:cloBAZam, 10 mg, oral, BID clonazePAM, 0.5 mg, oral, Daily clonazePAM, 1 mg, oral, Nightly fluvoxaMINE, 100 mg, oral, Nightly hydrOXYzine pamoate, 50 mg, oral, TID lacosamide, 200 mg, oral, BID lamoTRIgine, 350 mg, oral, BID levETIRAcetam, 1,500 mg, oral, BID [START ON 04/28/2025] sertraline, 25 mg, oral, Daily sertraline, 50 mg, oral, Daily Continuous Infusions: PRN Meds:PRN medications: acetaminophen, bisacodyL, LORazepam ALLERGIES Allergies Allergen Reactions Phenytoin Sodium Rash Dolasetron Agitation Phenobarbital RASH Valproic Acid UNKNOWN FAMILY HISTORY No family history on file. SOCIAL HISTORY Social History Socioeconomic History Marital status: Single Spouse name: Not on file Number of children: Not on file Years of education: Not on file Highest education level: Not on file Occupational History Not on file Tobacco Use Smoking status: Never Passive exposure: Never Smokeless tobacco: Never Substance and Sexual Activity Alcohol use: Not on file Drug use: Not on file Sexual activity: Not on file Other Topics Concern Not on file Social History Narrative Not on file NEUROLOGICAL EXAMINATION Vital Sign: Visit Vitals BP 129/67 (BP Location: Right arm, Patient Position: Sitting) Pulse 83 Temp 36.6 ??C (97.9 ??F) (Oral) Resp 20 Ht 1.524 m (60 ) Wt 59.9 kg (132 lb 0.9 oz) SpO2 100% BMI 25.79 kg/m?? Smoking Status Never BSA 1.56 m?? Exam: The exam was done with the assistance of the nurse, Isaias, for Tele communication purpose. General exam: Well developed, well dressed and in no acute distress. Symmetric chest rise, normal respiratory effort and rhythm. No audible wheezing heard. Mental status: Alert and oriented to self, age, hospital, year only Confused, anxious Crying and laughing Agitated Depressed mood Able to read Cranial Nerves: Extraocular movements intact. Face is symmetric at rest. Motor Exam: Can move neck in all directions without pain Able to move all extremities without weakness No drift of BUE No drift of BLE Deferred gait LABS: [facility] (last 7 days): ABG Anemia Results from last 7 days Lab Units 04/26/25 0542 WBC AUTO K/mcL 7.3 HEMOGLOBIN g/dL 11.5 HEMATOCRIT % 35.2 PLATELETS K/mcL 287 Hematology Results from last 7 days Lab Units 04/26/25 0542 WBC AUTO K/mcL 7.3 HEMOGLOBIN g/dL 11.5 HEMATOCRIT % 35.2 PLATELETS K/mcL 287 LYMPHS PCT AUTO % 45.2 MONO PCT AUTO % 6.7 EOS PCT AUTO % 4.4 Chemistry Results from last 7 days Lab Units 04/26/25 0542 SODIUM mmol/L 141 POTASSIUM mmol/L 4.1 CHLORIDE mmol/L 109 CO2 mmol/L 26 BUN mg/dL 9 CREATININE mg/dL 0.65 GLUCOSE mg/dL 88 CALCIUM mg/dL 8.9 No lab exists for component: LABALBU Cardiac 0 Lab Value Date/Time HSTROPI 4 04/24/2025 1518 Coagulation No results found for: PTT Thyroid Function / HGBA1C Results from last 7 days Lab Units 04/24/25 1518 TSH mcIU/mL 2.23 No results found for: HGBA1C Urine No results found for: COLORUA , CLARITYUA , SPECGRAVUA , PHUA , PROTUA , GLUCOSEUA , KETONESUA , BILIRUBINUA , BLOODUA , UROBILINOGUA , NITRITEUA Micro Culture, Urine Date Value Ref Range Status 04/24/2025 Final 10,000-49,000 CFU/mL Mixed bacterial morphotypes present suggestive of possible contamination during collection. Suggest appropriate recollection if clinically indicated. Assessment: I independently reviewed results of CT CT head reported as no acute process. EEG routine was done on 04/25/25 and reported as normal routine EEG recording in the awake and drowsy states. There were no seizures, periodic patterns, or epileptiform discharges. There is no focal slowing or persistent focal asymmetries of the background rhythms. Labs: CK 215, lactate 2.1 UDS: + benzo, THC Acute encephalopathy Suspected Etiology: Toxic - Metabolic, drug abuse Hyperammonemia H/o Status Epilepticus (December, Jun 2023) H/o Refractory epilepsy H/o meningitis (2003) Persistent depressive disorder OSIEL Panic disorder Plan: The following are the recommendations: Repeat EEG today, if normal, consider admission to psych based on recent exam at 12:45PM Discontinue Buspirone and continue Sertraline taper to off, discontinue before discharge Follow up ammonia level, consider Lactulose Lacosamide 200mg twice daily Fycompa 6mg twice daily Lamotrigine 350mg twice daily Keppra 1500mg twice daily Clobazam 10mg twice daily Follow up the following levels: Perampanel, Lacosamide, Keppra, Lamotrigine Seizure precautions Avoid marihuana use Follow up with Neurology in 2-4 weeks Recommendations were discussed with current provider/ The findings were conveyed to the referring provider by secure text message ([email or web address]): Dr. Spivey Thank you for allowing us to participate in the care of this pleasant patient and please do not hesitate to contact us should questions or concerns arise. Sincerely, Dr. Villanueva Neurology attending Department of Neurology The patient was assessed for decision-making capacity and was found non- competent to make informed consent for treatment at the time they received interactive virtual communication assessment, guidance, and treatment for the acute phase of stroke for their neurological emergency. Video visit [facility] Total Time: 35min of total time was spent today to see the patient. This time included reviewing previous notes and labs, independently reviewing images prior to the visit and also obtained further history from the patient during the visit. Additional time was spent to evaluate and discuss further recommendations with the patient. This chart was generated by the [employer] EMR system and Evrent speech recognition software and may contain inherent errors or omissions not intended by the user. Grammatical errors, random word insertions, deletions, pronoun errors and incomplete sentences are occasional consequences of this technologydue to software limitations. Not all errors are caught or corrected. If there are questions or concerns about the content of this note or information contained within the body of this dictation they should be addressed directly with the author for clarification. * Mariza Villanueva MD - 04/25/2025 1:14 PM EDTAssociated Order(s): IP CONSULT TO NEUROLOGY TeleNeurology Consult Reason for consult: AMS History obtained from: Patient and EMR/Housestaff Referring physician: Jose Lacy MD History of Present Illness: Char Villa is a 44 y.o. female with history of seizure disorder, anxiety, depression, and panic,DM, cognitive disorder, encephalitis, GERD, hypothyroidism brought in to the ER for abnormal behavior. EEG completed Pt was seen by psych. Pt lacks medical decision making capacity Per OSH records Mom reports since Zoloft patient has been hyperactive/hypomanic and emotionally labile Sieuzres reportedly have been stable and unchanged in frequency. AEDs: Lacosamide 200mg twice daily Fycompa 6mg twice daily Lamotrigine 350mg twice daily Keppra 1500mg twice daily Clobazam 10mg twice daily S/p VNS implanted Aug 2015 Today the patient is awake but confused and not able to provide meaningful history. I evaluated Char in December and Jun, 2023: December 2022: Recurrent breakthrough GTC seizures (/14) Complex partial seizures (6/15) Auditory Hallucinations (/15) Status epilepticus (/) Keppra increased to 1500mg BID Lacosamide 200mg BID Lamotrigine 300mg BID Jun 2023 EEG reported as status epilepticus OSH 2022: Vagal nerve stimulator was interrogated and was normal. Patient continued to have significant electrographic seizure burden until Fycompa was added. EEG was removed after >18 hrs of seizure free. Past medical, surgical, social and family histories were reviewed and noted in EMR Current medications were reviewed and noted in EMR PAST MEDICAL HISTORY Past Medical History: Diagnosis Date Seizures ([facility] V24, [facility] V28) HOME MEDICATIONS (Not in a hospital admission) MEDICATIONS Scheduled Meds:cloBAZam, 10 mg, oral, BID clonazePAM, 0.5 mg, oral, Daily clonazePAM, 1 mg, oral, Nightly fluvoxaMINE, 100 mg, oral, Nightly hydrOXYzine pamoate, 50 mg, oral, TID lacosamide, 200 mg, oral, BID lamoTRIgine, 350 mg, oral, BID levETIRAcetam, 1,500 mg, oral, BID [START ON 04/28/2025] sertraline, 25 mg, oral, Daily sertraline, 50 mg, oral, Daily Continuous Infusions: PRN Meds: ALLERGIES Allergies Allergen Reactions Phenytoin Sodium Rash FAMILY HISTORY No family history on file. SOCIAL HISTORY Social History Socioeconomic History Marital status: Single Spouse name: Not on file Number of children: Not on file Years of education: Not on file Highest education level: Not on file Occupational History Not on file Tobacco Use Smoking status: Not on file Smokeless tobacco: Not on file Substance and Sexual Activity Alcohol use: Not on file Drug use: Not on file Sexual activity: Not on file Other Topics Concern Not on file Social History Narrative Not on file NEUROLOGICAL EXAMINATION Vital Sign: Visit Vitals BP 114/65 (Patient Position: Lying) Pulse 74 Temp 36.4 ??C (97.5 ??F) (Oral) Resp 20 Ht 1.524 m (60 ) Wt 59 kg (130 lb) SpO2 99% BMI 25.39 kg/m?? BSA 1.55 m?? Exam: The exam was done with the assistance of the nurse, Claudine, for Tele communication purpose. General exam: Well developed, well dressed and in no acute distress. Symmetric chest rise, normal respiratory effort and rhythm. No audible wheezing heard. Mental status: Alert and oriented to self and hospital only. Confused, confabulate Not able to name any presidents Simple math 3/5 Not able to describe picture well Able to read well Cranial Nerves: Extraocular movements intact. Face is symmetric at rest. Sensation is equal to LT on face. Tongue is midline with normal tongue protrusion and lateral movements. Motor Exam: Can move neck in all directions without pain Able to move all extremities without weakness No drift of BUE No drift of BLE Electronic Scale Assembler And Tester strong BL Feet strong BL Sensory Examination: Light touch intact bilaterally in upper and lower extremities. Reflexes: (R/L): Patellar (3/3) Negative babinski sign. Coordination and Gait: Finger to nose testing intact bilaterally with no dysmetria. Deferred gait LABS: [facility] (last 7 days): ABG Anemia Results from last 7 days Lab Units 04/24/25 1741 WBC AUTO K/mcL 11.5* HEMOGLOBIN g/dL 12.2 HEMATOCRIT % 37.6 PLATELETS K/mcL 324 Hematology Results from last 7 days Lab Units 04/24/25 1741 WBC AUTO K/mcL 11.5* HEMOGLOBIN g/dL 12.2 HEMATOCRIT % 37.6 PLATELETS K/mcL 324 Chemistry Results from last 7 days Lab Units 04/24/25 1518 SODIUM mmol/L 139 POTASSIUM mmol/L 3.6 CHLORIDE mmol/L 107 CO2 mmol/L 26 BUN mg/dL 15 CREATININE mg/dL 0.50 GLUCOSE mg/dL 73 CALCIUM mg/dL 8.6 No lab exists for component: LABALBU Cardiac 0 Lab Value Date/Time HSTROPI 4 04/24/2025 1518 Coagulation No results found for: PTT Thyroid Function / HGBA1C Results from last 7 days Lab Units 04/24/25 1518 TSH mcIU/mL 2.23 No results found for: HGBA1C Urine No results found for: COLORUA , CLARITYUA , SPECGRAVUA , PHUA , PROTUA , GLUCOSEUA , KETONESUA , BILIRUBINUA , BLOODUA , UROBILINOGUA , NITRITEUA Micro No results found for: BLOODCX , CLOSTD , GRAMSTAIN , URINECX Assessment: I independently reviewed results of CT CT head reported as no acute process. EEG routine was done on 04/25/25 and reported as normal routine EEG recording in the awake and drowsy states. There were no seizures, periodic patterns, or epileptiform discharges. There is no focal slowing or persistent focal asymmetries of the background rhythms. Labs: CK 215, lactate 2.1 UDS: + benzo, THC Acute encephalopathy Current Suspected Etiology: Ongoing workup H/o Status Epilepticus (December, Jun 2023) H/o Refractory epilepsy H/o meningitis (2003) Persistent depressive disorder OSIEL Panic disorder Plan: The following are the recommendations: Observation for 24-48 hrs Hold off Buspirone and continue Sertraline taper to off, consider holding off Lacosamide 200mg twice daily Fycompa 6mg twice daily Lamotrigine 350mg twice daily Keppra 1500mg twice daily Clobazam 10mg twice daily Check the following levels: Perampanel, Lacosamide, Keppra, Lamotrigine Check ammonia level Schedule EEG for tomorrow as well R/O infection Fall precautions Seizure precautions Will follow up Recommendations were discussed with current provider/ The findings were conveyed to the referring provider by secure text message ([email or web address]): Dr. Cortez Thank you for allowing us to participate in the care of this pleasant patient and please do not hesitate to contact us should questions or concerns arise. Sincerely, Dr. Villanueva Neurology attending Department of Neurology The patient was assessed for decision-making capacity and was found non- competent to make informed consent for treatment at the time they received interactive virtual communication assessment, guidance, and treatment for the acute phase of stroke for their neurological emergency. Video visit ED [facility] Total Time: 75 min of total time was spent today to see the patient. This time included reviewing previous notes and labs, independently reviewing images prior to the visit and also obtained further history from the patient during the visit. Additional time was spent to evaluate and discuss furtherrecommendations with the patient. This chart was generated by the [employer] system and [employer] speech recognition software and may contain inherent errors or omissions not intended by the user. Grammatical errors, random word insertions, deletions, pronoun errors and incomplete sentences are occasional consequences of this technologydue to software limitations. Not all errors are caught or corrected. If there are questions or concerns about the content of this note or information contained within the body of this dictation they should be addressed directly with the author for clarification. * Milagro Nunez MD - 04/25/2025 8:28 AM EDTAssociated Order(s): IP CONSULT TO PSYCHIATRY Connected to patient's room via I-pad with help from quality assurance/r&d lab technician; assistance much appreciated. Patient consented verbally to visit via Telehealth video conferencing modality. Patient educated asto likely differences between Telehealth care and face to face care. Patient informed of the risks and benefits of using Telehealth services and procedures and likely risks and benefits of using alternatives to Telehealth services. Patient informed of the right to refuse Telehealth services at any time without jeopardizing his/her right to future care, services or benefits. Patient was informed that he/she is being seen solely by Milagro Nunez MD today via secure audio/visual connection in alocked virtual exam room. Persons present on patient's end: Patient, patient's mother (via phone) Persons present on provider's end in [place]: Milagro Nunez MD CHART REVIEWED, PATIENT INTERVIEWED. CHIEF COMPLAINT: Complex psych history Time spent on encounter: 39 min (29 min face to face, 10 min in chart review and documentation) Billing: [facility] HISTORY OF PRESENT ILLNESS Char Villa is a 44 y.o. female with psychiatric history significant for anxiety, depression, andpanic and medical history significant for but not limited to epilepsy, DM, cognitive disorder, encephalitis, GERD, hypothyroidism, and VNS device placement who was admitted for altered mental status.Psychiatry was consulted for complex psych history. The patient states that she is in the hospital, but she is not sure which one. She reports that she fell twice yesterday and once today. She is tangential and has some loose associations and flights of ideas. She does not attend to some questions, and she reports that she doesn't know to many other questions. She believes that her last seizurewas yesterday. She feels that being in perimenopause is causing her to have more seizures. She reports that she can hear fine and denies hearing any voices or seeing any VH. She does feel a little paranoid at times and is sometimes unsure if her mother and her daughter have her best interest at heart. She feels like her family members gang up against her. She seems confused by some of the questions posed by the u/s and answers some questions inappropriately and off topic. She deals with depression and anxiety every day. She doesn't know what her psychotropic medications are, and she doesn't know why she is on two antidepressants. She is not currently or . The patient de nies any suicidal ideations, plan, or intent. She states, I am not suicidal. I am very, very Ma[place]. I'm latter-day. Per call to her mother, the patient's provider is weaning her down and off of Zoloft and starting her up onto Luvox. She feels that Zoloft makes the patient irritable and angry. She notes that the patient has been having issues with her insurance covering her medications, and that has been complicating things. Her mother reports that the patient is usually confused and tangential, especially in the morning time. She has been complaining of dizziness. Her mother reports that she is the patient'sprimary software asset manager and that her seizures seem to happen more when her period is due soon. She notes that the patient's period is due this weekend. REVIEW OF SYSTEMS Unable to obtain. SOCIAL HISTORY Reports she lives at home with her mother and her daughter. PSYCHIATRIC HISTORY Unable to obtain from the patient. SUBSTANCE USE HISTORY Unable to obtain from the patient. MEDICAL HISTORY Non-psychiatric medical history: Past Medical History: Diagnosis Date Seizures ([facility] V24, [facility] V28) Current medications: busPIRone, 10 mg, oral, TID cloBAZam, 10 mg, oral, BID clonazePAM, 0.5 mg, oral, Daily clonazePAM, 1 mg, oral, Nightly fluvoxaMINE, 100 mg, oral, Nightly hydrOXYzine pamoate, 50 mg, oral, TID lacosamide, 200 mg, oral, BID lamoTRIgine, 350 mg, oral, BID levETIRAcetam, 1,500 mg, oral, BID sertraline, 100 mg, oral, Daily ALLERGIES: Allergies Allergen Reactions Phenytoin Sodium Rash FAMILY HISTORY: No family history on file. MSE: Appearance: Alert but oriented to self and type of place Appears stated age, well groomed. Pleasantand cooperative. Adequate eye contact. No psychomotor agitation or retardation. No evidence of EPS. Muscle tone/station: WNL. Orientation: See above. Attention and Concentration: Markedly confused. Speech: Normal rate, rhythm, volume, and tone. Mood: I don't know. Affect: Appears anxious with restricted range, mood congruent. Tearful/labile at times. Thought Process: Confused, tangential. Does have FOI or COLLEEN. No thought blocking. Thought Content: Denies suicidal/homicidal ideation. Denies auditory/visual hallucinations. No delusions. Reports some paranoia/distrust. Perception/associations: Denies hallucinations, somatic complaints, or tactile disturbances Suicidal Ideations: Pt denies SI, intent, or plan. Low acute risk. Currently is future oriented, motivated for treatment, and compliant with medications. Homicidal Ideations: Pt denies HI, intent, or plan. Low acute risk. No history of violence. No access to firearms. Behavior: Moves arms over her chest repeatedly throughout the interview. Fund of Knowledge: Unable to adequately assess. Intellect/Memory: Unable to adequately assess. Judgment/Insight: limited/poor Musculoskeletal Exam: Movement: [x]normal []abnormal [-]dyskinesias [-]tremors [-]tics Station: [x]upright []hyperflexed/stooped []hyperextended Muscle strength [x]appears normal [-]appears abnormal Muscle tone: [x]normal [-]muscle rigidity LABS: Admission on 04/24/2025 Component Date Value Ref Range Status WBC 04/24/2025 11.5 (H) 4.8 - 10.8 K/mcL Final RBC 04/24/2025 3.90 3.80 - 4.80 M/mcL Final Hemoglobin 04/24/2025 12.2 11.5 - 16.0 g/dL Final Hematocrit 04/24/2025 37.6 35.0 - 47.0 % Final MCV 04/24/2025 97.2 79.0 - 98.0 FL Final MCH 04/24/2025 31.5 27.0 - 32.0 pcg Final MCHC 04/24/2025 32.4 32.0 - 37.0 g/dL Final RDW 04/24/2025 12.9 11.0 - 15.0 % Final Platelets 04/24/2025 324 130 - 400 K/mcL Final MPV 04/24/2025 9.2 7.0 - 11.0 FL Final NRBC 04/24/2025 0.0 <1.0 % Final NRBC Absolute 04/24/2025 0.00 <0.10 K/mcL Final Sodium 04/24/2025 139 133 - 145 mmol/L Final Potassium 04/24/2025 3.6 3.5 - 5.5 mmol/L Final Chloride 04/24/2025 107 96 - 110 mmol/L Final CO2 04/24/2025 26 21 - 32 mmol/L Final Anion Gap 04/24/2025 6 3 - 11 Final Glucose 04/24/2025 73 70 - 100 mg/dL Final BUN 04/24/2025 15 5 - 25 mg/dL Final Creatinine 04/24/2025 0.50 0.50 - 1.10 mg/dL Final eGFR 04/24/2025 120 >=60 mL/min/1.73m2 Final Calculation based on the Chronic Kidney Disease Epidemiology Collaboration (CKD- EPI) equation refitwithout adjustment for race. BUN/Creatinine Ratio 04/24/2025 30.0 Final Calcium 04/24/2025 8.6 8.5 - 10.5 mg/dL Final hCG Qual 04/24/2025 Negative Negative Final Magnesium 04/24/2025 2.2 1.9 - 2.6 mg/dL Final High Sensitivity Troponin I 04/24/2025 4 <=54 ng/L Final TSH 04/24/2025 2.23 0.40 - 4.00 mcIU/mL Final Ethanol Level 04/24/2025 <3 0 - 10 mg/dL Final Amphetamine Screen, Ur 04/24/2025 Negative Negative Final Certain OTC medications containing ephedrine, phenylephrine, pseudoephedrine and phenylpropanolamine can cause false positive results. Barbiturate Screen, Ur 04/24/2025 Negative Negative Final Benzodiazepine Screen, Ur 04/24/2025 Positive (A) Negative Final Cocaine Screen, Ur 04/24/2025 Negative Negative Final Opiate Screen, Ur 04/24/2025 Negative Negative Final Cannabinoid (THC) Screen, Ur 04/24/2025 Positive (A) Negative Final Specimens from patients taking pantoprazole sodium (Protonix) have been shown to produce false positive results. Oxycodone Screen, Ur 04/24/2025 Negative Negative Final Fentanyl, Ur 04/24/2025 Negative Negative Final Specific [place] Urine 04/24/2025 1.021 1.003 - 1.030 Final pH, Urine 04/24/2025 6.5 5.0 - 8.0 pH Final Leukocytes, Urine 04/24/2025 Trace (A) Negative Final Nitrite, Urine 04/24/2025 Negative Negative Final Protein, Urine 04/24/2025 Negative <=Trace mg/dL Final Glucose, Urine 04/24/2025 Negative Negative mg/dL Final Ketones, Urine 04/24/2025 Negative Negative mg/dL Final Urobilinogen, Urine 04/24/2025 0.2 0.2 - 1.0 mg/dL Final Bilirubin, Urine 04/24/2025 Negative Negative Final Blood, Urine 04/24/2025 Negative Negative Final RBC, Urine 04/24/2025 4.0 0 - 4 /HPF Final WBC, Urine 04/24/2025 2.2 0 - 4 /HPF Final Squamous Epithelial, Urine 04/24/2025 34 0 - 60 /LPF Final Bacteria, Urine 04/24/2025 Negative Negative /HPF Final Hyaline Casts, Urine 04/24/2025 0.4 0 - 3 /LPF Final Extra Tube 04/24/2025 Hold for add-ons. Final Auto resulted. VITALS: BP: 106/60 (04/25 555) Heart Rate: 78 (04/25 555) Heart Rate Source: Monitor (04/24 1420) Temp: 36.4 ??C (97.5 ??F) (04/25 555) Temp Source: Oral (04/25 555) SpO2: 100 % (04/25 555) ASSESSMENT: Char Villa is a 44 y.o. female with psychiatric history significant for anxiety, depression, andpanic and medical history significant for but not limited to epilepsy, DM, cognitive disorder, encephalitis, GERD, hypothyroidism, and VNS device placement who was admitted for altered mental status.Psychiatry was consulted for complex psych history. DSM-5 DIAGNOSIS: AMS Persistent depressive disorder OSIEL Panic disorder Epilepsy, DM, cognitive disorder, encephalitis, GERD, hypothyroidism, and VNS device placement Admitted for altered mental status TREATMENT PLAN: Pt has verbalized understanding and given consent/agreement with medications and plan offered. LEVEL OF CARE: Continue current level of treatment. RECOMMENDATIONS: Discussed the plan with the patient's mother via phone call during this encounter. The patient's mother is HCPOA and is in agreement with the following: Of note, it is the opinion of the u/s that the patient lacks medical decision- making capacity at this time. HCPOA should be invoked/utilized. Also of note, the patient does not meet criteria for psychiatric admission to hospital or Section 12 at this time. Hold Buspar for now to decrease serotonergic activity. Taper and discontinue Zoloft - 50 mg PO daily x 3 days, then 25 mg PO daily x 3 days, then discontinue. Cautiously continue Luvox 100 mg PO qHS. Cautiously continue Hydroxyzine Pamoate 50 mg PO TID. Lamictal per neurology. Medication Education: Risks, benefits, alternatives, and potential side effects were discussed withthe patient's mother. Patient 's mothervoiced understanding and agreed with medication regimen described above. LABS: Reviewed and discussed most recent labs results. MEDICATION CONTRACT: Pt's mother agreed the patient would take medication only as prescribed and acknowledges that services may be terminated if prescription abuse is observed. SAFETY PLAN: Patient is to alert team if symptoms worsen. Team will monitor for development of suicidal ideations or an acute medication reaction. - Call 911 or present to nearest Emergency Room in case of crisis / suicidal thoughts upon discharge. EDUCATION/CONSENT: Discussed and explained all diagnoses including differential diagnosis and treatment options. Discussed risks, benefits, potential side effects, contraindications, potential drug-drug interactions, alternatives to current medications and medication allergies as noted above. Discussed continuing to monitor for side effects and treatment efficacy prospectively and delineated patient's involvement and responsibility in monitoring for side effects and efficacy. Daniel addison expressed understanding of these recommendations. BARRIERS TO LEARNING: Patient demonstrates a readiness to learn. Patient verbalizes understanding and agrees to plan. No barriers to communication noted. MEDICATION RECONCILIATION: Medications were reviewed and reconciled with the patient. PREVENTATIVE RECOMMENDATIONS: Preventative Health Education Counseling: discussed proper diet/nutrition, exercise, and sleep hygiene. The patient was encouraged to avoid nicotine, alcohol and illicitdrugs at all times. The patient was made aware that records from the u/s can be sent to his/her PCP at any time that he/she requests. documented in this encounter Miscellaneous Notes * ED Bed Hold Note - Alma Villeda RN - 04/24/2025 2:20 PM EDT Bed: [facility] Expected date: Expected time: Means of arrival: Comments: MARCELL: 44F zoloft withdrawal, ?seizure, altered documented in this encounter Plan of Treatment Pending Results Name Type Priority Associated Diagnoses Date /Time Lacosamide level Lab STAT 04/24/20 3:18 PM EDT Levetiracetam level Lab STAT 04/24 3:18 PM EDT Lamotrigine level Lab STAT 025 3:18 PM EDT Lamotrigine level Lab Timed 025 5:42 AM EDT Lacosamide level Lab Routine 04/26/20 5:42 AM EDT Scheduled Orders Name Type Priority Associated Diagnoses Orde r Schedule Lacosamide level Lab STAT STAT for 1 Occurrences starting 04/24/2025 until 04/24/2025 Levetiracetam level Lab STAT STAT for 1 Occurrences starting 04/24/2025 until 04/24/2025 Lamotrigine level Lab STAT STAT fo r 1 Occurrences starting 04/24/2025 until 04/24/2025 ECG 12 lead PRN ECG Routine As needed until discontinued starting 04/25/2025 Lamotrigine level Lab Timed This fr equency is intended to be used for lab level procedures, or other lab procedures that should be ordered one time at a specific time. Order transmittal will set the priority to timed for procedures orderd with this frequency. for 1 Occurrences starting 04/26/2025 until 04/26/2025 Lacosamide level Lab Routine Once for 1 Occurrences starting 04/26/2025 until 04/26/2025 Routine EEG Neurology STAT Once for 1 Oc currences starting 04/26/2025 until 04/26/2025 documented as of this encounter Procedures Procedure Name Priority Date/Time Associated Diagnosis Comments ROUTINE EEG Routine 04/26/2025 8:32 AM EDT Altered mental status, unspecified altered mental status type CBC WITH AUTO DIFFERENTIAL Routine 04/26/2025 5:42 AM EDT CBC AND DIFFERENTIAL Routine 04/26/2025 5:42 AM EDT BASIC METABOLIC PANEL Routine 04/26/2025 5:42 AM EDT AMMONIA Routine 04/25/2025 7:40 PM EDT POCT GLUCOSE BLOOD Routine 04/25/2025 3: 41 PM EDT CREATINE KINASE Add-On 04/25/2025 1:45 PM EDT LACTATE STAT 04/25/2025 1:42 PM EDT EEG MONITORING EXTENDED 41-60 MINUTES STAT 04/25/2025 8:26 AM EDT Altered mental status, unspecified altered mental status type URINALYSIS WITH REFLEX MICROSCOPIC AND CULTURE STAT 04/24/2025 6:58 PM EDT DOMINGUEZ URINE CULTURE TUBE STAT 04/24/2025 6:58 PM EDT DRUG ABUSE SCREEN 8A PANEL, URINE STAT 04/24/2025 6:58 PM EDT URINALYSIS WITH REFLEX MICROSCOPIC AND CULTURE STAT 04/24/2025 6:58 PM EDT CULTURE URINE STAT 04/24/2025 6:[address] HEAD WO CONTRAST STAT 04/24/2025 6 :08 PM EDT COMPLETE BLOOD COUNT STAT 04/24/2025 5:41 PM EDT TROPONIN I HIGH SENSITIVITY STAT 04/24/2025 3:18 PM EDT THYROID STIMULATING HORMONE WITH REFLEX TO FREE T4 AND FREE T3 STAT 04/24/2025 3:18 PM EDT HCG, SERUM, QUALITATIVE STAT 04/24/2025 3:18 PM EDT MAGNESIUM STAT 04/24/2025 3:18 PM EDT ETHANOL STAT 04/24/2025 3:18 PM EDT BASIC METABOLIC PANEL STAT 04/24/2025 3:18 PM EDT documented in this encounter Results * ROUTINE EEG (04/26/2025 8:32 AM EDT) Dl Tabor MD - 04/26/2025 2:32 PM EDT Dl White MD 04/26/2025 2:39 PM Routine EEG Date/Time: 04/26/2025 2:32 PM Performed by: Dl White MD Authorized by: DANIEL Magaña us Lyric RUSSELL NEUROLOGY ORDERABLES Fi nal Result * (ABNORMAL) CBC auto differential (04/26/2025 5:42 AM EDT) WBC 7.3 4.8 - 10.8 K/[facility] LAB HEMETOLOGY METHOD 04/26/2025 6:46 AM [facility] RBC 3.70(L) 3.80 - 4.80 M/[facility] LAB HEMETOLOGY METHOD 04/26/2025 6:46 AM [facility] Hemoglobin 11.5 11.5 - 16.0 g/dL LAB HEMETOLOGY METHOD 04/26/2025 6:46 AM [facility] Hematocrit 35.2 35.0 - 47.0 % LAB HEMETOLOGY METHOD 04/26/2025 6:46 AM [facility] MCV 95.1 79.0 - 98.0 FL LAB HEMETOLOGY METHOD 04/26/2025 6:46 AM [facility] MCH 31.1 27.0 - 32.0 pcg LAB HEMETOLOGY METHOD 04/26/2025 6:46 AM [facility] MCHC 32.7 32.0 - 37.0 g/dL LAB HEMETOLOGY METHOD 04/26/2025 6:46 AM [facility] RDW 12.8 11.0 - 15.0 % LAB HEMETOLOGY METHOD 04/26/2025 6:46 AM [facility] Platelets 287 130 - 400 K/[facility] LAB HEMETOLOGY METHOD 04/26/2025 6:46 AM [facility] MPV 9.4 7.0 - 11.0 FL LAB HEMETOLOGY METHOD 04/26/2025 6:46 AM [facility] NRBC 0.0 <1.0 % LAB HEMETOLOGY METHOD 04/26/2025 6:46 AM [facility] NRBC Absolute 0.00 <0.10 K/[facility] LAB HEMETOLOGY METHOD 04/26/2025 6:46 AM [facility] Neutrophils Relative 43.0 % LAB HEMETOLOGY METHOD 04/26/2025 6:46 AM [facility] Lymphocytes Relative 45.2 % LAB HEMETOLOGY METHOD 04/26/2025 6:46 AM [facility] Monocytes Relative 6.7 % LAB HEMETOLOGY METHOD 04/26/2025 6:46 AM [facility] Eosinophils Relative 4.4 % LAB HEMETOLOGY METHOD 04/26/2025 6:46 AM [facility] Basophils Relative 0.4 % LAB HEMETOLOGY METHOD 04/26/2025 6:46 AM [facility] Immature Granulocytes Relative 0.3 % LAB HEMETOLOGY METHOD 04/26/2025 6:46 AM [facility] Neutrophils Absolute 3.14 1.50 - 7.00 K/mcL LAB HEMETOLOGY METHOD 04/26/2025 6:46 AM [facility] Lymphocytes Absolute 3.30 1.00 - 5.00 K/mcL LAB HEMETOLOGY METHOD 04/26/2025 6:46 AM [facility] Monocytes Absolute 0.49 0.20 - 1.00 K/mcL LAB HEMETOLOGY METHOD 04/26/2025 6:46 AM [facility] Eosinophils Absolute 0.32 0.00 - 0.50 K/mcL LAB HEMETOLOGY METHOD 04/26/2025 6:46 AM [facility] Basophils Absolute 0.03 0.00 - 0.20 K/mcL LAB HEMETOLOGY METHOD 04/26/2025 6:46 AM [facility] Immature Granulocytes Absolute 0.02 0.00 - 0.03 K/mcL LAB HEMETOLOGY METHOD 04/26/2025 6:46 AM [facility] Blood Venous blood specimen / Unknown Venipuncture / Unknown 04/26/2025 5:42 AM EDT 04/26/2025 6:10 AM EDT us Lyric RUSSELL LAB BLOOD ORDERABLES Fi nal Result [facility] [address] [place] [address], [place] [phone] * Basic metabolic panel (04/26/2025 5:42 AM EDT) Pathologist [facility] Sodium 141 133 - 145 mmol/L LAB CHEMISTRY METHOD 04/26/2025 7:02 AM [facility] Potassium 4.1 3.5 - 5.5 mmol/L LAB CHEMISTRY METHOD 04/26/2025 7:02 AM [facility] Chloride 109 96 - 110 mmol/L LAB CHEMISTRY METHOD 04/26/2025 7:02 AM [facility] CO2 26 21 - 32 mmol/L LAB CHEMISTRY METHOD 04/26/2025 7:02 AM [facility] Anion Gap 6 3 - 11 LAB CHEMISTRY METHOD 04/26/2025 7:02 AM [facility] Glucose 88 70 - 100 mg/dL LAB CHEMISTRY METHOD 04/26/2025 7:02 AM [facility] BUN 9 5 - 25 mg/dL LAB CHEMISTRY METHOD 04/26/2025 7:02 AM [facility] Creatinine 0.65 0.50 - 1.10 mg/dL LAB CHEMISTRY METHOD 04/26/2025 7:02 AM [facility] eGFR 113 >=60 mL/min/1. 73m2 LAB CHEMISTRY METHOD 04/26/2025 7:02 AM [facility] Comment:Calculation based on the Chronic Kidney Disease Epidemiology Collaboration (CKD-EPI) equation refit without adjustment for race. BUN/Creatinine Ratio 13.8 LAB CHEMISTRY METHOD 04/26/2025 7:02 AM [facility] Calcium 8.9 8.5 - 10.5 mg/dL LAB CHEMISTRY METHOD 04/26/2025 7:02 AM EDT [facility] Blood Venous blood specimen / Unknown Venipuncture / Unknown 04/26/2025 5:42 AM EDT 04/26/2025 6:10 AM EDT Lyric RUSSELL LAB BLOOD ORDERABLES Fi nal Result Performing Organization Address [facility]/ZIP Co de Phone Number [facility] [address] [place] [address], [place] [phone] * (ABNORMAL) Ammonia (04/25/2025 7:40 PM EDT) Ammonia 65(H) 11 - 35 mcmol/L LAB CHEMISTRY METHOD 04/25/2025 9:34 PM EDT [facility] Blood Venous blood specimen / Unknown Venipuncture / Unknown 04/25/2025 7:40 PM EDT 04/25/2025 8:31 PM EDT Lyric RUSSELL LAB BLOOD ORDERABLES Fi nal Result Performing Organization Address [facility] de Phone Number [facility] [address] [place] [address], [place] [phone] * (ABNORMAL) POCT Glucose, blood (04/25/2025 3:41 PM EDT) Glucose POCT 110(H) 70 - 100 mg/dL 04/25/2025 3:41 PM EDT [facility] Blood Capillary blood specimen / Unknown 04/25/2025 3:41 PM EDT 04/25/2025 3:42 PM EDT Efrain Medina MD LAB POINT OF CA RE TEST DOCKED DEVICE UNSOLICITED RESULTS Final Result Performing Organization Address City/[facility]/ZIP Co de Phone Number [facility] [address] [place] [address], [place] [phone] * Creatine kinase (04/25/2025 1:45 PM EDT) [facility] Total CK 215 22 - 269 unit/L LAB CHEMISTRY METHOD 04/25/2025 2:26 PM EDT [facility] Blood Venous blood specimen / Unknown Venipuncture / Unknown 04/25/2025 1:45 PM EDT 04/25/2025 1:57 PM EDT us Jose Lacy MD LAB BLOOD ORDERABLES Final Resul t Performing Organization Address City/[facility]/ZIP Co de Phone Number [facility] [address] [place] [address], [place] [phone] * (ABNORMAL) Lactate (04/25/2025 1:42 PM EDT) [facility] Lactate 2.1(H) 0.4 - 2.0 mmol/L LAB CHEMISTRY METHOD 04/25/2025 2:42 PM EDT [facility] Blood Venous blood specimen / Unknown Venipuncture / Unknown 04/25/2025 1:42 PM EDT 04/25/2025 1:57 PM EDT us Jose Lacy MD LAB BLOOD ORDERABLES Final Resul t [facility] [address] [place] [address], [place] [phone] * EEG MONITORING EXTENDED 41-60 MINUTES (04/25/2025 8:26 AM EDT) lD Tabor MD - 04/25/2025 12:23 PM EDT Dl White MD 04/25/2025 12:27 PM EEG Date/Time: 04/25/2025 12:23 PM Performed by: Dl White MD Authorized by: Lacey Diaz MD us Lacey Diaz MD NEUROLOGY ORDERABLES Final Resul t * Culture urine (04/24/2025 6:58 PM EDT) Pathologist [facility] Culture, Urine 10,000-49,000 CFU/mL Mixed bacterial morphotypes present suggestive of possible contamination during collection. Suggest appropriate recollection if clinically indicated. 04/26/2025 10:44 AM EDT [facility] Urine Urine specimen obtained by clean catch procedure / Unknown Non-blood Collection / Unknown 04/24/2025 6:58 PM EDT 04/24/2025 7:41 PM EDT us Lacey Diaz MD LAB MICROBIOLOGY - GENERAL ORDER KRUPA Final Result Performing Organization Address [facility]/ZIP Co de Phone Number [facility] [address] [place] [address], [place] [phone] * Dominguez urine culture tube (04/24/2025 6:58 PM EDT) [facility] Extra Tube Hold for add-ons. 04/24/2025 9:01 PM EDT [facility] Comment:Auto resulted. Urine Urine specimen obtained by clean catch procedure / Unknown Non-blood Collection / Unknown 04/24/2025 6:58 PM EDT 04/24/2025 7:19 PM EDT us Lacey Diaz MD LAB URINE ORDERABLES Final Resul t Performing Organization Address City/[facility]/ZIP Co de Phone Number [facility] [address] [place] [address], [place] [phone] * (ABNORMAL) Urinalysis with reflex microscopic and culture (04/24/2025 6:58 PM EDT) [facility] Specific [place] Urine 1.021 1.003 - 1.030 LAB URINALYSIS - AUTOMATED METHOD 04/24/2025 7:41 PM EDT [facility] pH, Urine 6.5 5.0 - 8.0 pH LAB URINALYSIS - AUTOMATED METHOD 04/24/2025 7:41 PM [facility] Leukocytes, Urine Trace(A) Negative LAB URINALYSIS - AUTOMATED METHOD 04/24/2025 7:41 PM [facility] Nitrite, Urine Negative Negative LAB URINALYSIS - AUTOMATED METHOD 04/24/2025 7:41 PM [facility] Protein, Urine Negative <=Trace mg/dL LAB URINALYSIS - AUTOMATED METHOD 04/24/2025 7:41 PM [facility] Glucose, Urine Negative Negative mg/dL LAB URINALYSIS - AUTOMATED METHOD 04/24/2025 7:41 PM [facility] Ketones, Urine Negative Negative mg/dL LAB URINALYSIS - AUTOMATED METHOD 04/24/2025 7:41 PM [facility] Urobilinogen, Urine 0.2 0.2 - 1.0 mg/dL LAB URINALYSIS - AUTOMATED METHOD 04/24/2025 7:41 PM [facility] Bilirubin, Urine Negative Negative LAB URINALYSIS - AUTOMATED METHOD 04/24/2025 7:41 PM [facility] Blood, Urine Negative Negative LAB URINALYSIS - AUTOMATED METHOD 04/24/2025 7:41 PM [facility] RBC, Urine 4.0 0 - 4 /HPF LAB URINALYSIS - AUTOMATED METHOD 04/24/2025 7:41 PM [facility] WBC, Urine 2.2 0 - 4 /HPF LAB URINALYSIS - AUTOMATED METHOD 04/24/2025 7:41 PM [facility] Squamous Epithelial, Urine 34 0 - 60 /LPF LAB URINALYSIS - AUTOMATED METHOD 04/24/2025 7:41 PM [facility] Bacteria, Urine Negative Negative /HPF LAB URINALYSIS - AUTOMATED METHOD 04/24/2025 7:41 PM EDT [facility] Hyaline Casts, Urine 0.4 0 - 3 /LPF LAB URINALYSIS - AUTOMATED METHOD 04/24/2025 7:41 PM EDT [facility] Urine Urine specimen obtained by clean catch procedure / Unknown Non-blood Collection / Unknown 04/24/2025 6:58 PM EDT 04/24/2025 7:19 PM EDT us Lacey Diza MD LAB URINE ORDERABLES Final Resul t [facility] [address] [place] [address], * (ABNORMAL) Drug abuse screen 8a panel, urine (04/24/2025 6:58 PM EDT) Amphetamine Screen, Ur Negative Negative LAB CHEMISTRY METHOD 7:43 PM EDT [facility] Comment:Certain OTC medicati ons containing ephedrine, phenylephrine, pseudoephedrine and phenylpropanolamine can cause false positive results. Barbiturate Screen, Ur Negative Negative LAB CHEMISTRY METHOD 5 7:43 PM EDT [facility] Benzodiazepine Screen, Ur Positive(A ) Negative [facility] Cocaine Screen, Ur Negative Negative LAB CHEMISTRY METHOD 5 7:43 PM T [facility] Opiate Screen, Ur Negative Negative LAB CHEMISTRY METHOD 5 7:43 PM [facility] Cannabinoid (THC) Screen, Ur Positive(A ) Negative LAB CHEMISTRY METHOD 5 7:43 PM [facility] Comment:Specimens from patie nts taking pantoprazole sodium (Protonix) have been shown to produce false positive results. Oxycodone Screen, Ur Negative Negative LAB CHEMISTRY METHOD 5 7:43 PM EDT [facility] Fentanyl, Ur Negative Negative LAB CHEMISTRY METHOD 7:43 PM EDT [facility] Urine Urine specimen obtained by clean catch procedure / Unknown Non-blood Collection / Unknown 04/24/2025 6:58 PM EDT 04/24/2025 7:19 PM EDT Narrative [facility] - 04/24/2025 7:43 PM EDT Assay cutoffs: Amphetamines 1000 ng/mL Barbiturates 200 ng/mL Benzodiazepines 200 ng/mL Cocaine 300 ng/mL Fentanyl 1 ng/mL Opiates 300 ng/mL Oxycodone 100 ng/mL THC 50 ng/mL Semi-quantitative assay for screening purposes only. Unconfirmed screening result should not be used for non-medical purposes. *ALTERNATE METHOD CONFIRMATION DONE UPON REQUEST ONLY* us Lacey Diaz MD LAB URINE ORDERABLES Final Resul t [facility] [address] [place] [address], [place] [phone] * CT Head wo Contrast (04/24/2025 6:08 PM EDT) Anatomical Region Laterality Modality Head and Neck Computed Tomogra phy 04/24/2025 6:31 PM EDT Impressions 04/24/2025 6:31 PM EDT 1. No acute intracranial findings. This document has been electronically signed by: Lázaro Mcdowell MD on 04/24/2025 18:31:38 Narrative 04/24/2025 6:31 PM EDT INDICATION: Mental status change, unknown cause CT head without contrast Comparison: CT/SR - BRAIN C- CT - 01/13/23 00:55 EDT Findings: No intra-axial mass, midline shift, hydrocephalus, or acute hemorrhage. No significant atrophy-like change or white matter disease. The visualized paranasal sinuses and mastoid air cells are normal. The orbits are unremarkable. There is no acute fracture. Procedure Note Lázaro Mcdowell MD - 04/24/2025 INDICATION: Mental status change, unknown cause CT head without contrast Comparison: CT/SR - BRAIN C- CT - 01/13/23 00:55 EDT Findings: No intra-axial mass, midline shift, hydrocephalus, or acute hemorrhage. No significant atrophy-like change or white matter disease. The visualized paranasal sinuses and mastoid air cells are normal. The orbits are unremarkable. There is no acute fracture. IMPRESSION: 1. No acute intracranial findings. This document has been electronically signed by: Lázaro Mcdowell MD on 04/24/2025 18:31:38 Lacey Diaz MD IMG CT PROCEDURES Final Result * (ABNORMAL) CBC (04/24/2025 5:41 PM EDT) WBC 11.5(H) 4.8 - 10.8 K/mcL LAB HEMETOLOGY METHOD 04/24/2025 6:06 PM EDT [facility] RBC 3.90 3.80 - 4.80 M/mcL LAB HEMETOLOGY METHOD 04/24/2025 6:06 PM EDT [facility] Hemoglobin 12.2 11.5 - 16.0 g/dL LAB HEMETOLOGY METHOD 04/24[facility]2025 6[facility] Hematocrit 37.6 35.0 - 47.0 % LAB HEMETOLOGY METHOD 04/24/2025 6:[facility] MCV 97.2 79.0 - 98.0 FL LAB HEMETOLOGY METHOD 04/24/2025 6:06 PM EDT [facility] MCH 31.5 27.0 - 32.0 pcg LAB HEMETOLOGY METHOD 04/24[facility]2025 6[facility] MCHC 32.4 32.0 - 37.0 g/dL LAB HEMETOLOGY METHOD 04/24/2025 6:[facility] RDW 12.9 11.0 - 15.0 % LAB HEMETOLOGY METHOD 04/24/2025 6:06 PM EDT [facility] Platelets 324 130 - 400 K/mcL LAB HEMETOLOGY METHOD 04/24/2025 6:06 PM EDT [facility] MPV 9.2 7.0 - 11.0 FL LAB HEMETOLOGY METHOD 04/24/2025 6:06 PM EDT [facility] NRBC 0.0 <1.0 % LAB HEMETOLOGY METHOD 04/24/2025 6:06 PM EDT [facility] NRBC Absolute 0.00 <0.10 K/mcL LAB HEMETOLOGY METHOD 04/24/2025 6:06 PM EDT [facility] Blood Venous blood specimen / Unknown Venipuncture / Unknown 04/24/2025 5:41 PM EDT 04/24/2025 5:57 PM EDT us Lacey Diaz MD LAB BLOOD ORDERABLES Final Resul t Performing Organization Address City/[facility]/ZIP Co de Phone Number [facility] [address] [place] [address], [place] [phone] * Ethanol (04/24/2025 3:18 PM EDT) Ethanol Level <3 0 - 10 mg/dL LAB CHEMISTRY METHOD 04/24/2025 5:00 PM EDT [facility] Blood Venous blood specimen / Unknown Venipuncture / Unknown 04/24/2025 3:18 PM EDT 04/24/2025 4:32 PM EDT us Lacey Diaz MD LAB BLOOD ORDERABLES Final Resul t Performing Organization Address [facility]/ZIP Co de Phone Number [facility] [address] [place] [address], [place] [phone] * Thyroid stimulating hormone with reflex to free t4 and free t3 (TSH Reflex) (04/24/2025 3:18 PM EDT) [facility] TSH 2.23 0.40 - 4.00 mcIU/mL LAB CHEMISTRY METHOD 04/24/2025 5:58 PM EDT [facility] Blood Venous blood specimen / Unknown Venipuncture / Unknown 04/24/2025 3:18 PM EDT 04/24/2025 4:32 PM EDT Lacey Diaz MD LAB BLOOD ORDERABLES Final Resul t Performing Organization Address [facility] Co de Phone Number [facility] [address] [place] [address], * Troponin I High Sensitivity (04/24/2025 3:18 PM EDT) [facility] High Sensitivity Troponin I 4 <=54 ng/L LAB CHEMISTRY METHOD 04/24/2025 5:05 PM EDT [facility] Blood Venous blood specimen / Unknown Venipuncture / Unknown 04/24/2025 3:18 PM EDT 04/24/2025 4:33 PM EDT Narrative [facility] - 04/24/2025 5:05 PM EDT High levels of biotin in samples may falsely decrease hsTroponin values. Use caution when interpreting hsTroponin results in patients taking biotin who exhibit renal impairment (eGFR <60) or in patients taking more than 20 mg/day of biotin. us Lacey Diaz MD LAB BLOOD ORDERABLES Final Resul t Performing Organization Address [facility]/ZIP Co de Phone Number [facility] [address] [place] [address], * Magnesium (04/24/2025 3:18 PM EDT) [facility] Magnesium 2.2 1.9 - 2.6 mg/dL LAB CHEMISTRY METHOD 04/24/2025 5:00 PM EDT [facility] Blood Venous blood specimen / Unknown Venipuncture / Unknown 04/24/2025 3:18 PM EDT 04/24/2025 4:32 PM EDT us Lacey Diaz MD LAB BLOOD ORDERABLES Final Resul t Performing Organization Address [facility]/ZIP Co de Phone Number [facility] [address] [place] [address], [place] [phone] * hCG Qualitative (04/24/2025 3:18 PM EDT) [facility] hCG Qual Negative Negative 04/24/2025 5:06 PM EDT [facility] Blood Venous blood specimen / Unknown Venipuncture / Unknown 04/24/2025 3:18 PM EDT 04/24/2025 4:32 PM EDT us Lacey Diaz MD LAB BLOOD ORDERABLES Final Resul t Performing Organization Address [facility] de Phone Number [facility] [address] [place] [address], [place] [phone] * Basic Metabolic Panel (BMP) (04/24/2025 3:18 PM EDT) [facility] Sodium 139 133 - 145 mmol/L LAB CHEMISTRY METHOD 04/24/2025 5:00 PM EDT [facility] Potassium 3.6 3.5 - 5.5 mmol/L LAB CHEMISTRY METHOD 04/24/2025 5:00 PM EDT [facility] Chloride 107 96 - 110 mmol/L LAB CHEMISTRY METHOD 04/24/2025 5:00 PM EDT [facility] CO2 26 21 - 32 mmol/L LAB CHEMISTRY METHOD 04/24/2025 5:00 PM EDT [facility] Anion Gap 6 3 - 11 LAB CHEMISTRY METHOD 04/24/2025 5:00 PM EDT [facility] Glucose 73 70 - 100 mg/dL LAB CHEMISTRY METHOD 04/24/2025 5:00 PM EDT [facility] BUN 15 5 - 25 mg/dL LAB CHEMISTRY METHOD 04/24/2025 5:00 PM EDT [facility] Creatinine 0.50 0.50 - 1.10 mg/dL LAB CHEMISTRY METHOD 04/24/2025 5:00 PM EDT [facility] eGFR 120 >=60 mL/min/1. 73m2 LAB CHEMISTRY METHOD 04/24/2025 5:00 PM EDT [facility] Comment:Calculation based on the Chronic Kidney Disease Epidemiology Collaboration (CKD-EPI) equation refit without adjustment for race. BUN/Creatinine Ratio 30.0 LAB CHEMISTRY METHOD 04/24/2025 5:00 PM EDT [facility] Calcium 8.6 8.5 - 10.5 mg/dL LAB CHEMISTRY METHOD 04/24/2025 5:00 PM EDT [facility] Blood Venous blood specimen / Unknown Venipuncture / Unknown 04/24/2025 3:18 PM EDT 04/24/2025 4:32 PM EDT Lacey Diaz MD LAB BLOOD ORDERABLES Final Resul t [facility] [address] [place] [address], documented in this encounter Visit Diagnoses Diagnosis AMS (altered mental status)- Primary Altered mental status, unspecified altered mental status type Agitation Other and unspecified special symptom or syndrome, not elsewhere classified History of seizure Generalized nonconvulsive epilepsy with intractable epilepsy (CMS/HCC V24, CMS/HCC V28) Generalized nonconvulsive epilepsy with intractable epilepsy documented in this encounter Admitting Diagnoses Diagnosis AMS (altered mental status) documented in this encounter Administered Medications Active Administered Medications - up to 3 most recent administrations Medication Order MAR Action Action Date Dose Rate Site acetaminophen (TYLENOL) tablet 650 mg 650 mg, oral, Every 6 hours PRN, mild pain, Starting on Lisa 04/25/25 at 1610 bisacodyL (DULCOLAX) EC tablet 10 mg 10 mg, oral, Daily PRN, constipation, Starting on Tue04/25/25 at 1610, 1st line for treatment of constipation - give scheduled if no bowel movement in past 24 hours. Do not crush, chew, or split. cloBAZam (ONFI) tablet 10 mg 10 mg, oral, 2 times daily, First dose on Tue04/24/25 at 2119, Hazardous Medication Intact: - Single pair of ASTM standard [id number] certified gloves - Eye/face protection if vomit or potential to spit up Manipulated: - Double pair of ASTM standard [id number] certified gloves - Eye/face protection if vomit or potential to spit up - Staff at reproductive risk must also wear a hazardous gown - Crushing must be performed in sealed closed pouch - Splitting/cutting should be performed by pharmacy, if possible Given 04/26/2025 9:32 AM EDT 10 mg Given 04/25/2025 10:00 PM EDT 10 mg Given 04/25/2025 9:22 AM EDT 10 mg clonazePAM (KlonoPIN) tablet 0.5 mg 0.5 mg, oral, Daily, First dose on Tue04/25/25 at 0900, For 3 doses, Hazardous Medication Intact: - Single pair of ASTM standard [id number] certified gloves - Eye/face protection if vomit or potential to spit up Manipulated: - Double pair of ASTM standard [id number] certified gloves - Eye/face protection if vomit or potential to spit up - Staff at reproductive risk must also wear a hazardous gown - Crushing must be performed in sealed closed pouch - Splitting/cutting should be performed by pharmacy, if possible Given 04/26/2025 9:32 AM EDT 0.5 mg Given 04/25/2025 9:21 AM EDT 0.5 mg clonazePAM (KlonoPIN) tablet 1 mg 1 mg, oral, Nightly, First dose on Tue04/25/25 at 2100, Hazardous Medication Intact: - Single pair of ASTM standard [id number] certified gloves - Eye/face protection if vomit or potential to spit up Manipulated: - Double pair of ASTM standard [id number] certified gloves - Eye/face protection if vomit or potential to spit up - Staff at reproductive risk must also wear a hazardous gown - Crushing must be performed in sealed closed pouch - Splitting/cutting should be performed by pharmacy, if possible Given 04/25/2025 9:58 PM EDT 1 mg fluvoxaMINE (LUVOX) tablet 100 mg 100 mg, oral, Nightly, First dose on Tue04/24/25 at 0 Given 04/25/2025 10:00 PM EDT 100 mg Given 04/24/2025 10:37 PM EDT 100 mg hydrOXYzine pamoate (VISTARIL) capsule 50 mg 50 mg, oral, 3 times daily, First dose on Tue04/24/25 at 2 Given 04/26/2025 3:47 PM EDT 50 mg Given 04/26/2025 9:33 AM EDT 50 mg Given 04/25/2025 9:59 PM EDT 50 mg lacosamide (VIMPAT) tablet 200 mg 200 mg, oral, 2 times daily, First dose on Tue04/24/25 at 2114 Given 04/26/2025 9:32 AM EDT 200 mg Given 04/25/2025 9:59 PM EDT 200 mg Given 04/25/2025 9:21 AM EDT 200 mg lamoTRIgine (LaMICtal) tablet 350 mg 350 mg, oral, 2 times daily, First dose on Tue04/24/25 at 2108 Given 04/26/2025 9:33 AM EDT 350 mg Given 04/25/2025 10:01 PM EDT 350 mg Given 04/25/2025 9:20 AM EDT 350 mg levETIRAcetam (KEPPRA) tablet 1,500 mg 1,500 mg, oral, 2 times daily, First dose on Tue04/24/25 at 2108 Given 04/26/2025 9:32 AM EDT 1,500 mg Given 04/25/2025 9:58 PM EDT 1,500 mg Given 04/25/2025 9:21 AM EDT 1,500 mg LORazepam (ATIVAN) injection 2 mg 2 mg, intravenous, Every 4 hours PRN, seizures, Starting on Lisa 04/25/25 at 1611, Prior to IV use, lorazepam injection should be DILUTED with an equal volume of compatible solution; Rate of administration should NOT exceed 2 mg/min. sertraline (ZOLOFT) tablet 25 mg 25 mg, oral, Daily, First dose on 04/28/25 at 0900, For 3 doses sertraline (ZOLOFT) tablet 50 mg 50 mg, oral, Daily, First dose on Lisa 04/25/25 at 0900, For 3 doses Given 04/26/2025 9:33 AM EDT 50 mg Given 04/25/2025 9:21 AM EDT 50 mg Inactive Administered Medications - up to 3 most recent administrations Medication Order MAR Action Action Date Dose Rate Site busPIRone (BUSPAR) tablet 10 mg 10 mg, oral, 3 times daily, First dose on Tue04/24/25 at 2112 Given 04/24/2025 10:15 PM EDT 10 mg levETIRAcetam (KEPPRA) injection 1,500 mg 1,500 mg, intravenous, Administer over 5 Minutes, Once, On Tue04/24/25 at 1541, For 1 dose, IV push over 5 minutes for doses up to 1500 mg. Given 04/24/2025 3:47 PM EDT 1,500 mg LORazepam (ATIVAN) injection 2 mg 2 mg, intravenous, Once, On Tue04/24/25 at 1910, For 1 dose, Prior to IV use, lorazepam injection should be DILUTED with an equal volume of compatible solution; Rate of administration should NOT exceed 2 mg/min. Given 04/24/2025 7:19 PM EDT 2 mg midazolam (VERSED) injection 5 mg 5 mg, intramuscular, Once, On Tue04/24/25 at 1444, For 1 dose Given 04/24/2025 2:48 PM EDT 5 mg Left Anterior Thigh midazolam (VERSED) injection 5 mg 5 mg, intramuscular, Once, On Tue04/24/25 at 2106, For 1 dose Given 04/24/2025 10:17 PM EDT 5 mg Right Ventrogluteal ondansetron (PF) (ZOFRAN) injection 4 mg 4 mg, intravenous, Once, On Tue04/24/25 at 1447, For 1 dose Given 04/24/2025 3:22 PM EDT 4 mg documented in this encounter Discontinued Medications Medication Sig Discontinue Reason Start Date End Da te levETIRAcetam (Keppra) 500 mg tablet 3 tabs bid Stop Taking at Discharge 2005 04/26/2025 topiramate (Topamax) 100 mg tablet 3 TABLETS TWICE DAILY Stop Taking at Discharge 2005 04/26/2025 OXcarbazepine (TrileptaL) 300 mg tablet 3 TABLETS in AM after meal Stop Taking at Discharge 2005 04/26/2025 documented as of this encounter Active and Recently Administered Medications Times are shown in EDT. Scheduled Medication Order 04/24/2025 04/25/2025 04/26/2025 busPIRone (BUSPAR) tablet 10 mg (CANCELED) 10 mg, oral, 3 times daily, First dose on Tue04/24/25 at 2112 2215 (Given - Provider: Milagro Dela Cruz RN) cloBAZam (ONFI) tablet 10 mg 10 mg, oral, 2 times daily, First dose on Tue04/24/25 at 2119, Hazardous Medication Intact: - Single pair of ASTM standard [id number] certified gloves - Eye/face protection if vomit or potential to spit up Manipulated: - Double pair of ASTM standard [id number] certified gloves - Eye/face protection if vomit or potential to spit up - Staff at reproductive risk must also wear a hazardous gown - Crushing must be performed in sealed closed pouch - Splitting/cutting should be performed by pharmacy, if possible 2255 (Given - Provider: Milagro Dela Cruz RN) 0922 (Given - Provider: Windy Esparza, VICKEY)2200 (Given - Provider: Henri Rivero RN) 0932 (Given - Provider: Thao Lara RN)2100 (Due) clonazePAM (KlonoPIN) tablet 0.5 mg 0.5 mg, oral, Daily, First dose on Tue04/25/25 at 0900, For 3 doses, Hazardous Medication Intact: - Single pair of ASTM standard [id number] certified gloves - Eye/face protection if vomit or potential to spit up Manipulated: - Double pair of ASTM standard [id number] certified gloves - Eye/face protection if vomit or potential to spit up - Staff at reproductive risk must also wear a hazardous gown - Crushing must be performed in sealed closed pouch - Splitting/cutting should be performed by pharmacy, if possible 0921 (Given - Provider: Windy Esparza RN) 0932 (Given - Provider: Thao Lara, VICKEY) clonazePAM (KlonoPIN) tablet 1 mg 1 mg, oral, Nightly, First dose on Tue04/25/25 at 2100, Hazardous Medication Intact: - Single pair of ASTM standard [id number] certified gloves - Eye/face protection if vomit or potential to spit up Manipulated: - Double pair of ASTM standard [id number] certified gloves - Eye/face protection if vomit or potential to spit up - Staff at reproductive risk must also wear a hazardous gown - Crushing must be performed in sealed closed pouch - Splitting/cutting should be performed by pharmacy, if possible 2157 (Given - Provider: Henri Rivero RN) 2099 (Due) fluvoxaMINE (LUVOX) tablet 100 mg 100 mg, oral, Nightly, First dose on Tue04/24/25 at 2120 2237 (Given - Provider: Mariluz Garza RN - Comment: Brought u by pharmacy) 2199 (Given - Provider: Henri Rivero RN) 2099 (Due) hydrOXYzine pamoate (VISTARIL) capsule 50 mg 50 mg, oral, 3 times daily, First dose on Tue04/24/25 at 2112 2216 (Given - Provider: Milagro Dela Cruz RN) 0921 (Given - Provider: Windy Esparza RN)1355 (Given - Provider: Nila Sanchez RN)2158 (Given - Provider: Henri Rivero, VICKEY) 0933 (Given - Provider: Thao Lara RN)1547 (Given - Provider: Thao Lara RN)2099 (Due) lacosamide (VIMPAT) tablet 200 mg 200 mg, oral, 2 times daily, First dose on Tue04/24/25 at 2115 2216 (Given - Provider: Milagro Dela Cruz RN) 0921 (Given - Provider: Windy Esparza RN)2158 (Given - Provider: Henri Rivero RN) 0932 (Given - Provider: Thao Lara RN)2100 (Due) lamoTRIgine (LaMICtal) tablet 350 mg 350 mg, oral, 2 times daily, First dose on Tue04/24/25 at 2109 2216 (Given - Provider: Milagro Dela Cruz RN) 09 (Given - Provider: Windy Esparza RN)2200 (Given - Provider: Henri Rivero, VICKEY) 0933 (Given - Provider: Thao Lara RN)2100 (Due) levETIRAcetam (KEPPRA) injection 1,500 mg (COMPLETED) 1,500 mg, intravenous, Administer over 5 Minutes, Once, On Tue04/24/25 at 1541, For 1 dose, IV push over 5 minutes for doses up to 1500 mg. 154 (Given - Provider: Milagro Dela Cruz RN) levETIRAcetam (KEPPRA) tablet 1,500 mg 1,500 mg, oral, 2 times daily, First dose on Tue04/24/25 at 2108 2223 (Hold - Provider: Milagro Dela Cruz RN - Reason: Other - Comment: pt recieved IV keppra earlier today + took dose this am) 09 (Given - Provider: Windy Esparza RN)2157 (Given - Provider: Henri Rivero RN) 0932 (Given - Provider: Thao Lara RN)2100 (Due) LORazepam (ATIVAN) injection 2 mg (COMPLETED) 2 mg, intravenous, Once, On Tue04/24/25 at 1910, For 1 dose, Prior to IV use, lorazepam injection should be DILUTED with an equal volume of compatible solution; Rate of administration should NOT exceed 2 mg/min. 191 (Given - Provider: Milagro Dela Cruz RN) midazolam (VERSED) injection 5 mg (COMPLETED) 5 mg, intramuscular, Once, On Tue04/24/25 at 1444, For 1 dose 144 (Given - Provider: Reagan Coburn RN - Comment: and Right thigh) midazolam (VERSED) injection 5 mg (COMPLETED) 5 mg, intramuscular, Once, On Tue04/24/25 at 2106, For 1 dose 221 (Given - Provider: Milagro Dela Cruz RN) ondansetron (PF) (ZOFRAN) injection 4 mg (COMPLETED) 4 mg, intravenous, Once, On Tue04/24/25 at 1447, For 1 dose 1522 (Given - Provider: Milagro Dela Cruz RN) sertraline (ZOLOFT) tablet 25 mg 25 mg, oral, Daily, First dose on 04/28/25 at 0900, For 3 doses sertraline (ZOLOFT) tablet 50 mg 50 mg, oral, Daily, First dose on Lisa 04/25/25 at 0900, For 3 doses 0921 (Given - Provider: Windy Esparza RN) 0933 (Given - Provider: Thao Lara RN) PRN Medication Order 04/24/2025 04/25/2025 04/26/2025 acetaminophen (TYLENOL) tablet 650 mg 650 mg, oral, Every 6 hours PRN, mild pain, Starting on Lisa 04/25/25 at 1610 bisacodyL (DULCOLAX) EC tablet 10 mg 10 mg, oral, Daily PRN, constipation, Starting on Lisa 04/25/25 at 1610, 1st line for treatment of constipation - give scheduled if no bowel movement in past 24 hours. Do not crush, chew, or split. LORazepam (ATIVAN) injection 2 mg 2 mg, intravenous, Every 4 hours PRN, seizures, Starting on Lisa 04/25/25 at 1611, Prior to IV use, lorazepam injection should be DILUTED with an equal volume of compatible solution; Rate of administration should NOT exceed 2 mg/min. documented in this encounter Orders Medications Ordered That Gelacio ht Not Have Been Administered Count Last Ordered Date First Ordered Date acetaminophen (TYLENOL) tablet 650 mg 1 bisacodyL (DULCOLAX) EC tablet 10 mg 04/02 LORazepam (ATIVAN) injection 2 mg 1 025 sertraline (ZOLOFT) tablet 25 mg 04/25/20 midazolam (VERSED) injection 2 mg 1 025 sertraline (ZOLOFT) tablet 100 mg 1 025 EKG Orders Without Results Count Last Ordered D ate First Ordered Date ECG 12-LEAD 1 04/24/2025 Diet Count Last Ordered Date First Orde red Date ADULT DIET 1 04/25/2025 Nursing Count Last Ordered Date First Orde red Date INTAKE AND OUTPUT 1 04/25/2025 MEASURE WEIGHT 1 04/25/2025 NEURO/VASCULAR CHECKS 1 04/25/2025 NOTIFY PROVIDER - VITAL SIGNS 1 04/25/2025 SEQUENTIAL COMPRESSION DEVICE 1 04/25/2025 STRICT INTAKE AND OUTPUT 1 04/25/2025 VITAL SIGNS 1 04/25/2025 Code Status Count Last Ordered Date First Orde red Date FULL CODE DEFAULT 1 04/25/2025 Consult Count Last Ordered Date First Orde red Date IP CONSULT TO SOCIAL WORK 1 04/26/2025 IP CONSULT TO NEUROLOGY 2 04/25/202504/02 IP CONSULT TO BEAMER HELPER 1 04/24/2025 IP CONSULT TO PSYCHIATRY 1 04/24/2025 Admission Count Last Ordered Date First Orde red Date INITIATE OBSERVATION STATUS 1 04/25/2025 Transfer Count Last Ordered Date First Orde red Date ED TO FLOOR BED REQUEST 1 04/25/2025 Discharge Count Last Ordered Date First Orde red Date DISCHARGE PATIENT 1 04/26/2025 Precaution Count Last Ordered Date First Orde red Date ASPIRATION PRECAUTIONS 1 04/25/2025 FALL PRECAUTIONS 1 04/25/2025 SEIZURE PRECAUTIONS 1 04/25/2025 Privilege Level Count Last Ordered Date First O rdered Date PATIENT EMERGENCY DEPARTMENT AIDE 1 04/24/2025 documented in this encounter Care Teams Measurement Operator Relationship Specialty Start Date End Date Shelton Espinoza MD [address] [place] [address] PCP - General 01/17/06 documented as of this encounter
--- NOTE | 2025-04-26 19:39 | ECG_ITS ---
Test Reason : CRISIS Blood Pressure : */* mmHG Vent. Rate : 70 BPM Atrial Rate : 70 BPM P-R Int : 176 ms QRS Dur : 78 ms QT Int : 418 ms P-R-T Axes : 74 72 42 degrees QTcB Int : 451 ms Normal sinus rhythm Normal ECG No previous ECGs available Referred By: Magdaleno Sharpe Electronically Signed By: Geoff Jackson
--- NOTE | 2025-04-26 19:39 | ED.GENADULT ---
HPI - General Adult General Chief complaint: Psychiatric Symptoms Stated complaint: Crisis/Psych Eval sent from [facility] Time Seen by Provider: 04/26/25 19:47 Related Data Home Medications ?Medication ?Instructions ?Recorded ?Confirmed lacosamide 200 mg tablet (Vimpat) 200 mg PO BID 02/25/25 04/27/25 clobazam 10 mg tablet 10 mg PO BID 03/04/25 04/27/25 clonazepam 0.5 mg tablet (Klonopin) 0.5 mg PO DAILY 03/04/25 04/29/25 lamotrigine 100 mg tablet 350 mg PO BID 03/04/25 04/27/25 levetiracetam 750 mg tablet 1,500 mg PO BID 03/04/25 04/27/25 clonazepam 1 mg tablet 1 mg PO DAILY@1700 04/29/25 04/29/25 folic acid 1 mg tablet 1 mg PO DAILY 04/29/25 04/29/25 hydroxyzine HCl 50 mg tablet 50 mg PO TID 04/29/25 04/29/25 magnesium oxide 250 mg PO DAILY 04/29/25 04/29/25 Previous Rx's ?Medication ?Instructions ?Recorded perampanel 6 mg tablet (Fycompa) 6 mg PO BID 30 days #60 tabs 03/22/25 sertraline 25 mg tablet 25 mg PO DAILY 25 days #25 tabs 05/06/25 Allergies Allergy/AdvReac Type Severity Reaction Status Date / Time divalproex sodium (From Allergy Unknown Unknown Verified 04/26/25 19:53 Depakote) lorazepam Allergy Unknown Unknown Verified 04/26/25 19:53 medroxyprogesterone (From Allergy Unknown Unknown Verified 04/26/25 19:53 Depo-Provera) phenytoin (From Dilantin) Allergy Unknown Unknown Verified 04/26/25 19:53 [facility] Past Medical History Medical History (Updated 04/30/25 @ 23:15 by Adan Rolle MD) Cognitive impairment MDD (major depressive disorder) Depression Panic disorder Anxiety Partial seizure disorder Epilepsy Social History Social History Household Members: Family Housing: House Do you presently have visiting nurse or other home services: No Patient Tobacco Use Status: Never used Tobacco Substance Use Type: Marijuana service: No Sexual orientation: Straight/Heterosexual Physical Exam ED Vital Signs: Vital Signs - 24 hr 04/28/25 13:57 04/28/25 13:57 04/29/25 06:31 Temperature 97.6 F 98.2 F Pulse Rate 140 H 82 72 Respiratory Rate 22 H 17 20 Blood Pressure 122/81 122/81 123/71 Pulse Oximetry 100 100 100 Oxygen Delivery Method Room Air Room Air Room Air BMI result Body Mass Index 41.0 Course Course Course Narrative: RME, this is a rapid medical exam performed by Himanshu Sharpe please refer to primary provider for complete H&P- 44-year-old female presents for evaluation of psychosis. She reports she is having pain all over, continues to put herself on the ground. Apparently she was just at [facility] for psychiatric care. She is with the parents who report that the patient had her medications adjusted. Difficult to obtain history, plan for medical clearance and likely care team consult. The patient was brought back to room 22 in the ER Reevaluation(s) Reevaluation #1: 10:19 AM 04/28/2025 (Dr. Noam Reilly): Patient we will be psychiatric inpatient level of care, I spoke with the behavioral health team Reevaluation #2: DR. Eli's Progress note 08:00, 04/29/2025: Patient in physician observation for psych evaluation, no acute events reported by nurse overnight, no current complaints, VSS, care team input is appreciated, bed search is underway, continue physician observation. Medications Administered Discontinued Medications Generic Name Dose Route Start Last Admin Trade Name Darioq PRN Reason Stop Dose Admin Acetaminophen 650 mg 04/29/25 09:39 04/29/25 09:41 Acetaminophen 325 Mg Tablet PO 04/29/25 09:40 650 mg ONCE ONE Administration Acetaminophen 650 mg 04/29/25 12:08 05/01/25 17:00 Acetaminophen 325 Mg Tablet PO 650 mg Q6H PRN Administration Headache/Pain, Scale 1-10 Clobazam 10 mg 04/27/25 21:00 05/06/25 09:03 Clobazam 10 Mg Tablet PO 10 mg BID RANDI Administration Clonazepam 0.5 mg 04/27/25 10:30 04/29/25 09:39 Clonazepam 0.5 Mg Tablet PO 0.5 mg BID RANDI Administration Clonazepam 1 mg 04/30/25 17:00 05/04/25 17:48 Clonazepam 1 Mg Tablet PO 1 mg DAILY@1700 RANDI Administration Clonazepam 0.5 mg 04/30/25 09:00 05/06/25 09:03 Clonazepam 0.5 Mg Tablet PO 0.5 mg DAILY RANDI Administration Clonazepam 1 mg 04/29/25 19:27 04/29/25 23:52 Clonazepam 1 Mg Tablet PO 04/29/25 19:28 Not Given ONCE ONE Clonazepam 1 mg 04/29/25 21:00 04/29/25 21:25 Clonazepam 1 Mg Tablet PO 04/29/25 21:01 1 mg ONCE ONE Administration Clonazepam 0.5 mg 04/30/25 21:00 05/02/25 21:21 Clonazepam 0.5 Mg Tablet PO 05/03/25 11:00 0.5 mg BEDTIME RANDI Administration Fluvoxamine Maleate 100 mg 04/29/25 21:00 04/29/25 21:26 Fluvoxamine Maleate 50 Mg Tablet PO 100 mg BEDTIME RANDI Administration Folic Acid 1 mg 04/30/25 09:00 05/06/25 09:03 Folic Acid 1 Mg Tablet PO 1 mg DAILY RANDI Administration Hydroxyzine HCl 50 mg 04/29/25 21:00 05/06/25 09:03 Hydroxyzine Hcl 50 Mg Tablet PO 50 mg TID RANDI Administration Lacosamide 200 mg 04/27/25 10:30 05/06/25 09:04 Lacosamide 100 Mg Tablet PO 200 mg BID RANDI Administration Lamotrigine 350 mg 04/27/25 10:30 04/27/25 10:45 Lamotrigine 25 Mg Tablet PO 350 mg BID RANDI Administration Lamotrigine 300 mg/ 350 mg 04/27/25 21:00 05/06/25 09:01 Lamotrigine 50 mg PO 350 mg BID RANDI Administration Levetiracetam 1,500 mg 04/27/25 10:45 04/29/25 09:38 Levetiracetam 500 Mg Tablet PO 1,500 mg BID RANDI Administration Levetiracetam 1,500 mg 04/29/25 21:00 05/06/25 09:02 Levetiracetam 500 Mg Tablet PO 1,500 mg BID RANDI Administration Magnesium Oxide 400 mg 04/30/25 09:00 04/30/25 08:18 Magnesium Oxide 400 Mg Tablet PO 400 mg DAILY RANDI Administration Magnesium Oxide 250 mg 05/01/25 09:00 05/02/25 10:04 Magnesium Oxide 400 Mg Tablet PO Not Given DAILY RANDI Magnesium Oxide 400 mg 05/01/25 11:30 05/06/25 09:04 Magnesium Oxide 400 Mg Tablet PO 400 mg DAILY RANDI Administration Pt Own (Perampanel [ 6 mg 04/27/25 21:00 05/01/25 22:26 Fycompa] 6 Mg Tablet PO Not Given ) BID RANDI Pt Own (Perampanel [ 6 mg 05/02/25 21:00 05/06/25 09:17 Fycompa] 6 Mg Tablet PO 6 mg ) BID RANDI Administration Ondansetron HCl 4 mg 04/30/25 18:22 04/30/25 23:24 Ondansetron Odt 4 Mg Tab.Rapdis TRANSLINGU 4 mg Q6H PRN Administration Nausea and Vomiting Sertraline HCl 50 mg 04/27/25 10:45 04/27/25 10:45 Sertraline Hcl 50 Mg Tablet PO 04/27/25 10:46 50 mg ONCE ONE Administration Sertraline HCl 25 mg 04/28/25 09:00 04/30/25 08:18 Sertraline Hcl 25 Mg Tablet PO 04/30/25 09:01 25 mg DAILY RANDI Administration Sertraline HCl 25 mg 05/03/25 09:00 05/06/25 09:04 Sertraline Hcl 25 Mg Tablet PO 25 mg DAILY RANDI Administration Trazodone HCl 50 mg 04/29/25 12:08 05/01/25 01:05 Trazodone Hcl 50 Mg Tablet PO 50 mg BEDTIME MRX1 PRN Administration Insomnia Medical Decision Making Lab Data 04/26/25 20:54 04/26/25 20:54 Labs: Lab Results 04/26/25 04/26/25 04/29/25 Range/Units 20:54 21:44 10:04 WBC 7.8 (4.8-10.8) X10*3/uL RBC 3.94 L (4.20-5.50) X10*6/uL Hgb 12.8 (12.0-16.0) g/dl Hct 37.4 (37.0-47.0) % MCV 94.9 (80.0-98.0) fL MCH 32.5 (27.0-33.0) pg MCHC 34.2 (31.0-35.0) g/dl RDW 12.8 (11.0-16.0) % Plt Count 188 D (160-400) X10*3/uL MPV 9.8 (9.4-12.3) fL Immature Gran % (Auto) 0.3 (0.0-0.4) % Neut % (Auto) 48.3 (45-73) % Lymph % (Auto) 40.7 H (20-40) % [place] % (Auto) 6.9 (2-11) % Eos % (Auto) 3.3 (0-4) % Baso % (Auto) 0.5 (0-2) % Lymph # (Auto) 3.2 (1.2-4.9) X10*3/uL [place] # (Auto) 0.5 (0.1-1.2) X10*3/uL Eos # (Auto) 0.3 (0.0-0.4) X10*3/uL Baso # (Auto) 0.0 (0.0-0.2) X10*3/uL Abs Immat Gran (auto) 0.02 (0.00-0.03) X10*3/uL Absolute Neuts (auto) 3.8 (2.0-8.3) x10*3/uL Absolute Nucleated RBC 0.000 (0.0-0.012) X10*3/uL Nucleated RBC % (auto) 0.0 (0.0-0.2) /100WBC Sodium 141 (135-145) mmol/L Potassium 3.8 (3.3-5.1) mmol/L Chloride 109 H (96-108) mmol/L Carbon Dioxide 22 (22-29) mmol/L Anion Gap 14 (12-20) BUN 12 (9-16) mg/dL Creatinine 0.67 (0.5-1.4) mg/dL Estim Creat Clear Calc 60.6 Estimated GFR > 60 Random Glucose 82 (60-115) mg/dL Calcium 9.0 (8.4-10.2) mg/dL Total Bilirubin 0.3 (0.0-1.0) mg/dL AST 29 (5-31) U/L ALT 22 (0-31) U/L Alkaline Phosphatase 56 (39-117) U/L Total Protein 7.4 (6.5-8.0) g/dL Albumin 5.0 (3.5-5.0) g/dL Urine Color [place] Urine Appearance Cloudy Urine pH 6.0 (5.0-9.0) Ur Specific [place] >= 1.030 H (1.005-1.025) Urine Protein 30 (1+) H (Neg-Trace) mg/dL Urine Glucose (UA) Negative (Negative) mg/dL Urine Ketones Trace (Negative) mg/dL Urine Blood Large (3+) H (Negative) Urine Nitrite Negative (Negative) Ur Leukocyte Esterase Trace H (Negative) Urine RBC >20 H (0-2) /HPF Urine WBC 11-20 H (0-5) /HPF Ur Squamous Epith Cells >20 (0-2) /HPF Urine Bacteria Trace (None Seen) Hyaline Casts 3-5 (0-2) /LPF Urine Test NEGATIVE NEGATIVE (NEGATIVE) Salicylates < 5.0 L (15-30) mg/dL Urine Opiates Screen Not Detected (Not Detect) Ur Buprenorphine Scrn Not Detected (Not Detect) ng/mL Ur Oxycodone Screen Not Detected (Not Detect) ng/mL Urine Methadone Screen Not Detected (Not Detect) ng/mL Urine Fentanyl Screen Not Detected (Not Detect) Acetaminophen < 3 (<30) mcg/mL Ur Barbiturates Screen Not Detected (Not Detect) Ur Phencyclidine Scrn Not Detected (Not Detect) Ur Amphetamines Screen Not Detected (Not Detect) U Benzodiazepines Scrn POSITIVE H (Not Detect) Urine Cocaine Screen Not Detected (Not Detect) U Marijuana (THC) Screen POSITIVE H (Not Detect) Ethyl Alcohol < 10 mg/dL Discharge Plan Discharge Clinical Impression: Psychosis Patient Disposition: Admitted As Inpatient Interventions: Admission Worksheet (ED) Last Done: 04/29/25 13:19 Discharge Date/Time: 04/29/25 13:25
[2025-04-26 19:48] VITALS: BP 137/76; PULSE 81; RESP 20; TEMP 36.8; O2SAT 100; BMI 41.0
--- NOTE | 2025-04-26 20:43 | ED.PSYCH ---
HPI - Psych General Chief Complaint: Psychiatric Symptoms Stated Complaint: Crisis/Psych Eval sent from [facility] Seen by Provider: 04/26/25 19:47 History of Present Illness HPI Narrative: Patient is a 44-year-old female brought in by parents. Has a history of seizure history of psychogenic nonepileptic seizure history of nerve stimulator history of anxiety patient baseline was on Zoloft was recently switched to Luvox the Zoloft was then gradually wean. Patient was seen by crisis at [facility] today. On her way home she was getting worse got extremely agitated. Was sent in by family to [place] for further evaluation she denies any suicidal homicidal ideations. Agitated. Related Data Home Medications ?Medication ?Instructions ?Recorded ?Confirmed lacosamide 200 mg tablet (Vimpat) 200 mg PO BID 02/25/25 04/27/25 clobazam 10 mg tablet 10 mg PO BID 03/04/25 04/27/25 clonazepam 0.5 mg tablet (Klonopin) 0.5 mg PO DAILY 03/04/25 04/29/25 lamotrigine 100 mg tablet 350 mg PO BID 03/04/25 04/27/25 levetiracetam 750 mg tablet 1,500 mg PO BID 03/04/25 04/27/25 clonazepam 1 mg tablet 1 mg PO DAILY@1700 04/29/25 04/29/25 folic acid 1 mg tablet 1 mg PO DAILY 04/29/25 04/29/25 hydroxyzine HCl 50 mg tablet 50 mg PO TID 04/29/25 04/29/25 magnesium oxide 250 mg PO DAILY 04/29/25 04/29/25 Previous Rx's ?Medication ?Instructions ?Recorded perampanel 6 mg tablet (Fycompa) 6 mg PO BID 30 days #60 tabs 03/22/25 sertraline 25 mg tablet 25 mg PO DAILY 25 days #25 tabs 05/06/25 Allergies Allergy/AdvReac Type Severity Reaction Status Date / Time divalproex sodium (From Allergy Unknown Unknown Verified 04/26/25 19:53 Depakote) lorazepam Allergy Unknown Unknown Verified 04/26/25 19:53 medroxyprogesterone (From Allergy Unknown Unknown Verified 04/26/25 19:53 Depo-Provera) phenytoin (From Dilantin) Allergy Unknown Unknown Verified 04/26/25 19:53 Review of Systems Review of Systems: No fevers or chills No chest pain or diaphoresis Yes all other systems are reviewed and are negative [facility] Past Medical History Attestation statement: The following information was validated with the patient. Medical History (Updated 04/30/25 @ 23:15 by Adan Rolle MD) Cognitive impairment MDD (major depressive disorder) Depression Panic disorder Anxiety Partial seizure disorder Epilepsy Social History Social History Household Members: Family Housing: House Do you presently have visiting nurse or other home services: No Patient Tobacco Use Status: Never used Tobacco Substance Use Type: Marijuana service: No Sexual orientation: Straight/Heterosexual Physical Exam Exam: Exam: Appearance: Alert. Oriented X3. No acute distress. Eyes: Pupils equal, round and reactive to light. ENT: Pharynx normal. Neck: Normal inspection. Neck supple. No lymph nodes noted. No crepitus CVS: Normal heart rate and rhythm. Pulses normal. Normal S1 and S2 Respiratory: No respiratory distress. Breath sounds normal. No Wheezing. No rales Abdomen: Soft and nontender. No rigidity. No distention. good BS x4 Skin: Skin warm and dry. Normal skin color. Normal skin turgor. Extremities: No lower extremity edema. Neurovascular intact to all extremities. No Lacerations. No Rash Neuro: Oriented X 3. No motor deficit. No sensory deficit. Moving all extermities. No slurred speech. Cranial nerves grossly intact Vital Signs: Vital Signs: Last Vital Signs Temp 96.6 F L 05/06/25 08:59 Pulse 80 05/06/25 08:59 Resp 18 05/06/25 08:59 BP 95/55 L 05/06/25 08:59 Pulse Ox 99 05/06/25 08:59 O2 Del Method Room Air 05/06/25 08:59 BMI result Body Mass Index 41.0 Course Reevaluation(s) Reevaluation #1: Time: Date: 04/27/25 Provider: Jay Verdin MD Patient in physician observation for psychiatric evaluation.? Patient was seen by the care team and I obtained the following information. Patient has been displaying erratic behavior with agitation. According to the mother, the patient was recently admitted for 2 days at [facility] (see below). After being discharged from [facility], the patient became worse so her mother brought the patient to our emergency department for evaluation. Care team clinician reported that the patient is agitated, acting erratically and care team counselor and was concerned that the patient's behavior may be psychiatric in related to the patient's recent medication changes. The patient did report SI to the care team provider. Given the complexity of the patient's presentation , I will obtain a psychiatric consult to help us determine disposition. Patient will be moved to our ED Behavioral Health pod. Patient's medications will need to be reconciled and I will order these medications. We will continue to monitor The patient's mother reported that the patient had a seizure in the emergency department. The mother describes the episode as a brief event with the patient is staring off into space. I obtained discharge record from [facility], patient was admitted from 04/24/2025 until 04/26/2025. Patient had presented to [facility] with erratic behavior over 24 hours which was felt to be secondary to weaning off sertarline (Zoloft). Patient's drug screen was positive for cannabis. CT of head without contrast was negative for acute findings. Patient had an EEG which was negative for seizure activities. She had a psychiatric evaluation as well as a Neurology evaluation. Psychiatry recommended holding her BuSpar, tapering and discontinuing sertarline(Zoloft). Patient's seizure medications were also adjusted. Time: 06:45 Date: 04/28/25 Provider: Jay Verdin MD Patient in physician observation for psychiatric evaluation.? No acute events reported overnight. No current complaints. VS stable.? Patient is in bed search status. Will continue to monitor. Time: 13:19 Date: 04/29/25 Provider: Jay Verdin MD Physician observation ended at 13:19. Patient to be admitted as inpatient to psychiatry. Medications Administered Discontinued Medications Generic Name Dose Route Start Last Admin Trade Name Freq PRN Reason Stop Dose Admin Acetaminophen 650 mg 04/29/25 09:39 04/29/25 09:41 Acetaminophen 325 Mg Tablet PO 04/29/25 09:40 650 mg ONCE ONE Administration Acetaminophen 650 mg 04/29/25 12:08 05/01/25 17:00 Acetaminophen 325 Mg Tablet PO 650 mg Q6H PRN Administration Headache/Pain, Scale 1-10 Clobazam 10 mg 04/27/25 21:00 05/06/25 09:03 Clobazam 10 Mg Tablet PO 10 mg BID RANDI Administration Clonazepam 0.5 mg 04/27/25 10:30 04/29/25 09:39 Clonazepam 0.5 Mg Tablet PO 0.5 mg BID RANDI Administration Clonazepam 1 mg 04/30/25 17:00 05/04/25 17:48 Clonazepam 1 Mg Tablet PO 1 mg DAILY@1700 RANDI Administration Clonazepam 0.5 mg 04/30/25 09:00 05/06/25 09:03 Clonazepam 0.5 Mg Tablet PO 0.5 mg DAILY RANDI Administration Clonazepam 1 mg 04/29/25 19:27 04/29/25 23:52 Clonazepam 1 Mg Tablet PO 04/29/25 19:28 Not Given ONCE ONE Clonazepam 1 mg 04/29/25 21:00 04/29/25 21:25 Clonazepam 1 Mg Tablet PO 04/29/25 21:01 1 mg ONCE ONE Administration Clonazepam 0.5 mg 04/30/25 21:00 05/02/25 21:21 Clonazepam 0.5 Mg Tablet PO 05/03/25 11:00 0.5 mg BEDTIME RANDI Administration Fluvoxamine Maleate 100 mg 04/29/25 21:00 04/29/25 21:26 Fluvoxamine Maleate 50 Mg Tablet PO 100 mg BEDTIME RANDI Administration Folic Acid 1 mg 04/30/25 09:00 05/06/25 09:03 Folic Acid 1 Mg Tablet PO 1 mg DAILY RANDI Administration Hydroxyzine HCl 50 mg 04/29/25 21:00 05/06/25 09:03 Hydroxyzine Hcl 50 Mg Tablet PO 50 mg TID RANDI Administration Lacosamide 200 mg 04/27/25 10:30 05/06/25 09:04 Lacosamide 100 Mg Tablet PO 200 mg BID RANDI Administration Lamotrigine 350 mg 04/27/25 10:30 04/27/25 10:45 Lamotrigine 25 Mg Tablet PO 350 mg BID RANDI Administration Lamotrigine 300 mg/ 350 mg 04/27/25 21:00 05/06/25 09:01 Lamotrigine 50 mg PO 350 mg BID RANDI Administration Levetiracetam 1,500 mg 04/27/25 10:45 04/29/25 09:38 Levetiracetam 500 Mg Tablet PO 1,500 mg BID RANDI Administration Levetiracetam 1,500 mg 04/29/25 21:00 05/06/25 09:02 Levetiracetam 500 Mg Tablet PO 1,500 mg BID RANDI Administration Magnesium Oxide 400 mg 04/30/25 09:00 04/30/25 08:18 Magnesium Oxide 400 Mg Tablet PO 400 mg DAILY RANDI Administration Magnesium Oxide 250 mg 05/01/25 09:00 05/02/25 10:04 Magnesium Oxide 400 Mg Tablet PO Not Given DAILY RANDI Magnesium Oxide 400 mg 05/01/25 11:30 05/06/25 09:04 Magnesium Oxide 400 Mg Tablet PO 400 mg DAILY RANDI Administration Pt Own (Perampanel [ 6 mg 04/27/25 21:00 05/01/25 22:26 Fycompa] 6 Mg Tablet PO Not Given ) BID RANDI Pt Own (Perampanel [ 6 mg 05/02/25 21:00 05/06/25 09:17 Fycompa] 6 Mg Tablet PO 6 mg ) BID RANDI Administration Ondansetron HCl 4 mg 04/30/25 18:22 04/30/25 23:24 Ondansetron Odt 4 Mg Tab.Rapdis TRANSLINGU 4 mg Q6H PRN Administration Nausea and Vomiting Sertraline HCl 50 mg 04/27/25 10:45 04/27/25 10:45 Sertraline Hcl 50 Mg Tablet PO 04/27/25 10:46 50 mg ONCE ONE Administration Sertraline HCl 25 mg 04/28/25 09:00 04/30/25 08:18 Sertraline Hcl 25 Mg Tablet PO 04/30/25 09:01 25 mg DAILY RANDI Administration Sertraline HCl 25 mg 05/03/25 09:00 05/06/25 09:04 Sertraline Hcl 25 Mg Tablet PO 25 mg DAILY RANDI Administration Trazodone HCl 50 mg 04/29/25 12:08 05/01/25 01:05 Trazodone Hcl 50 Mg Tablet PO 50 mg BEDTIME MRX1 PRN Administration Insomnia Medical Decision Making Medical Decision Making MDM Narrative: Patient is 44 years old extremely agitated just got discharged from [facility] recently been weaned off from her Zoloft and started on Luvox. Will need crisis evaluation. Differential Diagnosis Differential Diagnoses: The differential diagnosis associated with the presentation includes Bipolar, anxiety, substance abuse Admission/Observation Consideration of admission/observation: Escalation of care including admission/observation considered Consult Healthcare Provider Management of the patient was discussed with: Administration Manager (Care team) Lab Data MDM Lab Attestation statement: I reviewed the patient's lab results. 04/26/25 20:54 04/26/25 20:54 Labs: Lab Results 04/26/25 04/26/25 04/29/25 Range/Units 20:54 21:44 10:04 WBC 7.8 (4.8-10.8) X10*3/uL RBC 3.94 L (4.20-5.50) X10*6/uL Hgb 12.8 (12.0-16.0) g/dl Hct 37.4 (37.0-47.0) % MCV 94.9 (80.0-98.0) fL MCH 32.5 (27.0-33.0) pg MCHC 34.2 (31.0-35.0) g/dl RDW 12.8 (11.0-16.0) % Plt Count 188 D (160-400) X10*3/uL MPV 9.8 (9.4-12.3) fL Immature Gran % (Auto) 0.3 (0.0-0.4) % Neut % (Auto) 48.3 (45-73) % Lymph % (Auto) 40.7 H (20-40) % [place] % (Auto) 6.9 (2-11) % Eos % (Auto) 3.3 (0-4) % Baso % (Auto) 0.5 (0-2) % Lymph # (Auto) 3.2 (1.2-4.9) X10*3/uL [place] # (Auto) 0.5 (0.1-1.2) X10*3/uL Eos # (Auto) 0.3 (0.0-0.4) X10*3/uL Baso # (Auto) 0.0 (0.0-0.2) X10*3/uL Abs Immat Gran (auto) 0.02 (0.00-0.03) X10*3/uL Absolute Neuts (auto) 3.8 (2.0-8.3) x10*3/uL Absolute Nucleated RBC 0.000 (0.0-0.012) X10*3/uL Nucleated RBC % (auto) 0.0 (0.0-0.2) /100WBC Sodium 141 (135-145) mmol/L Potassium 3.8 (3.3-5.1) mmol/L Chloride 109 H (96-108) mmol/L Carbon Dioxide 22 (22-29) mmol/L Anion Gap 14 (12-20) BUN 12 (9-16) mg/dL Creatinine 0.67 (0.5-1.4) mg/dL Estim Creat Clear Calc 60.6 Estimated GFR > 60 Random Glucose 82 (60-115) mg/dL Calcium 9.0 (8.4-10.2) mg/dL Total Bilirubin 0.3 (0.0-1.0) mg/dL AST 29 (5-31) U/L ALT 22 (0-31) U/L Alkaline Phosphatase 56 (39-117) U/L Total Protein 7.4 (6.5-8.0) g/dL Albumin 5.0 (3.5-5.0) g/dL Urine Color [place] Urine Appearance Cloudy Urine pH 6.0 (5.0-9.0) Ur Specific [place] >= 1.030 H (1.005-1.025) Urine Protein 30 (1+) H (Neg-Trace) mg/dL Urine Glucose (UA) Negative (Negative) mg/dL Urine Ketones Trace (Negative) mg/dL Urine Blood Large (3+) H (Negative) Urine Nitrite Negative (Negative) Ur Leukocyte Esterase Trace H (Negative) Urine RBC >20 H (0-2) /HPF Urine WBC 11-20 H (0-5) /HPF Ur Squamous Epith Cells >20 (0-2) /HPF Urine Bacteria Trace (None Seen) Hyaline Casts 3-5 (0-2) /LPF Urine Test NEGATIVE NEGATIVE (NEGATIVE) Salicylates < 5.0 L (15-30) mg/dL Urine Opiates Screen Not Detected (Not Detect) Ur Buprenorphine Scrn Not Detected (Not Detect) ng/mL Ur Oxycodone Screen Not Detected (Not Detect) ng/mL Urine Methadone Screen Not Detected (Not Detect) ng/mL Urine Fentanyl Screen Not Detected (Not Detect) Acetaminophen < 3 (<30) mcg/mL Ur Barbiturates Screen Not Detected (Not Detect) Ur Phencyclidine Scrn Not Detected (Not Detect) Ur Amphetamines Screen Not Detected (Not Detect) U Benzodiazepines Scrn POSITIVE H (Not Detect) Urine Cocaine Screen Not Detected (Not Detect) U Marijuana (THC) Screen POSITIVE H (Not Detect) Ethyl Alcohol < 10 mg/dL Independent Historian Clinical information obtained from an independent historian. History obtained from or confirmed by: Parent External Record Review External record reviewed: Inpatient record Chronic Conditions Bipolar Social Determinants Patient?s care significantly limited by Social Determinants of Health including: Problems related to primary support group Discharge Plan Discharge Clinical Impression: Psychosis Patient Disposition: Admitted As Inpatient Interventions: Admission Worksheet (ED) Last Done: 04/29/25 13:19 Discharge Date/Time: 04/29/25 13:25
--- OUTSIDE RECORDS SUMMARY | 2025-04-26 20:49 | XMS_ITS | Clinical Summary ---
Author Organization [facility] Address [address] [place] [address] Care Team Providers Care Feeder Associate Name Role Phone Luis Fernando Schmitz MD Primary Care Provider Allergies Active Allergy Reactions Criticality Noted Date Comments Dolasetron Mesylate Other (see comments) 2003 agitation Lamotrigine Rash 10/02/2024 Lorazepam Behavioral Problems, Emotional Distress,Hyperactivity,Panic Attacks,Seizure High 01/10/2004 Phenobarbital Rash 02/10/2004 Phenytoin Other (see comments),Rash High 02/09/2004 fever Valproic Acid Unknown 10/02/2024 Medications busPIRone (BUSPAR) 10 mg tablet 10 mg 3 times a day. 07/29/2024 Active sertraline (ZOLOFT) 100 mg tablet Take [...] PRN Active lacosamide (Vimpat) 200 mg tablet tabletIndication s:Focal epilepsy with impairment of consciousness, intractable (HCC) Take 1 tablet (200 mg total) by mouth every 12 hours. 180 tablet 1 02/05/2025 Active lamoTRIgine (LaMICtal) 100 mg tabletIndication s:Focal epilepsy with impairment of consciousness, intractable (HCC) Take 3.5 tablets (350 mg total) by mouth 2 times a day. 630 tablet 3 02/05/2025 Active cloBAZam (ONFI) 10 mg tabletIndication s:Focal epilepsy with impairment of consciousness, intractable (HCC) Take 1 tablet (10 mg total) by mouth 2 times a day. 180 tablet 1 02/05/2025 Active levETIRAcetam (KEPPRA) 500 mg tabletIndication s:Focal epilepsy with impairment of consciousness, intractable (HCC) Take 1.5 tablets (750 mg total) by mouth 2 times a day. 270 tablet 3 02/05/2025 Active Fycompa 6 mg tabletIndication s:Focal epilepsy with impairment of consciousness, intractable (HCC) Take 1 tablet (6 mg total) by mouth 2 (two) times a day. 180 tablet 1 02/20/2025 Active Active Problems Problem Noted Date Diagnosed Date Status post placement of VNS (vagus nerve stimulation) device 10/02/2024 Overview (02/08/2025): Minubo M1000 Serial Number [id number] VNS interrogation: Output Current (mA): 1.75, Signal [...] the floor. 5-8/mo. WORK-UP: Jun 2023 cEEG [facility] [place] -- This 4-day half-way monitoring EEG captured at least 83 seizures. [...] Type Department Care Team Description 02/19/2025 Refill [facility] [address] [place] [id number] Brittney Cooper MD Focal epilepsy with impairment of consciousness, intractable (HCC) 02/18/2025 Refill [facility] [address] [place] [phone] Brittney Cooper MD Focal epilepsy with impairment of consciousness, intractable (HCC) 02/05/2025 3:00 PM EDT Office Visit [facility] [address] [place] [phone] Brittney Cooper MD Focal epilepsy with impairment of consciousness, intractable (HCC) (Primary Dx); Post-encephalitic syndrome; Panic disorder without agoraphobia; Generalized anxiety disorder; Dysthymic disorder; Cognitive disorder; Status post placement of VNS (vagus nerve stimulation) device 02/05/2025 Refill [facility] [address] [place] [phone] Brittney Cooper MD Focal epilepsy with impairment of consciousness, intractable (HCC) 02/04/2025 Telephone [facility] [address] [place] [phone] Telephone Intake, Staff PAC Clinical Questions-Kenneth from [...] Description 07/23/2025 3:30 PM EST Office Visit [facility] [address] [place] [address] Brittney Cooper MD [address] [place] [address] Health Maintenance Due Date Last Done Comments HIV Screening 1982 Hepatitis C Screening 1982 Medicare AWV 11/10/1983 Varicella Vaccines (1 of 2 - 13+ 2-dose series) 11/10/1995 Hepatitis B Vaccines (1 of 3 - 19+ 3-dose series) 2001 Pap Smear 10/10/2016 10/10/2013, 09/0 08/2009, 04/01/2009, Additional history exists Cervical Cancer Screening 10/10/2018 HPV and Pap Smear 10/10/2018 10/10/2013, , 04/01/2009 Mammogram 2022 Alcohol/Substance Use Screening 08/01/2024 Depression Screening and Follow-Up 08/01/2024 Social Drivers of Health Annual Screening 08/01/2024 COVID-19 Vaccine ( - season) 2025 Influenza Vaccine (#1) 2025 , 06/09/2020, 08/15/2019, Additional history exists Diabetes Screening 06/04/2026 06/04/2023, 0 02/13/2010, 07/18/2009 DTaP,Tdap,and Td Vaccines (2 - Td or Tdap) 07/14/2028 07/14/2018 RSV Vaccine (60+ years old and patients) (1 - 1-dose 75+ series) 2057 Pneumococcal Vaccine: Pediatric (0-5 Years) and At-Risk Patients (6-50 Years) Aged Out 08/25/2010 No longer eligible based on patient's age to complete this topic Procedures * Due to [place] state law, this organization might not be sharing negative HIV tests. Procedure Name Priority Date/Time Associated Diagnosis Comments PAP W/REFLEX HPV, CONVERSION Routine 10/10/2013 11:18 AM EDT COMPREHENSIVE METABOLIC PANEL Routine 02/13/2010 12:58 PM EDT from Last 3 Months or Most Recently Relevant to Health Maintenance Results * Due to [place] state law, this organization might not be sharing negative HIV tests. * Pap w/Reflex HPV (10/10/2013 11:18 AM EDT) Path Procedure TPGAS ([id number]) 1 Edited by: [id number] - 1118 [facility] Specimen Labeled As: 1 CERVICAL/ENDOCERVI MIAN CYTO MATERIAL - Edited by: [id number] - 1118 [facility] Diagnosis ThinPrep [...] test was examined in accordance with the [facility] Cyt[facility] written policy, which incorporates all CLIA mandates. This Pap test was examined by the [facility] System, [employer], [place], [place]. Edited by: [id number] [phone] ANATOM[facility] PATHOLOGY - [facility] Gynecologic Clinical Data Specimen source:, THINPREP (VAGINAL, CERVICAL AND ENDOCERVICAL) [facility] Gynecologic Clinical Data First date of LMP:, 09/01/13 [facility] Pathology Codes Client Order Code:, [email or web address] [facility] Pathology Codes Bill Type:, CLIENT [facility] Marker 1 NILM,NILM [facility] Marker 2 QCKF,QC [facility] Marker 3 CLAU REID [facility] - [facility] Cc Results To KAREN JULIO REF [id number] [facility] Signature REPORT SIGNED: MARIANO FERNÁNDEZ 10/22/13 [facility] Sign Out Audit MARIANO FERNÁNDEZ [id number] FINAL [place] [id number] [facility] Cytology / Unknown 4 11:18 AM EDT 10/15/2013 11:18 AM EDT us Laney Laura MD LAB HISTORICAL RESULTS Final Result [facility] [place] [address] [place] [address], * (ABNORMAL) Comprehensive Metabolic Panel (02/13/2010 12:58 PM EDT) Sodium Blood 143 136 - 145 mmol/L [facility] Potassium Blood 4.8 3.5 - 5.3 mmol/L [facility] Chloride Blood 110 97 - 110 mmol/L [facility] Carbon Dioxide 20(L) 24 - 32 mmol/L [facility] Gap 13 5 - 15 [facility] Glucose 100(H) 70 - 99 mg/dL [facility] BUN 9 7 - 23 mg/dL [facility] Creatinine 0.59 0.50 - 1.20 mg/dL [facility] eGFR Non- >60 >60 [facility] Comment: Units = mL/min/1.73 m2 Glomerular Filtration Rate (GFR) is estimated based on the IDMS-Traceable MDRD equation(NKDEP).For Americans multiply results by 1.210. Patients with CKD exhibit values less than 60mL/min/1.73 m2, while results less than 15mL/min/1.73 m2 are consistent with kidney failure. This MDRD equation is not recommended by NK[facility] for drug-dosing purposes Calcium Blood 9.5 8.7 - 10.7 mg/dL [facility] Total Protein Blood 6.8 6.0 - 8.0 g/dL [facility] Albumin Blood 4.7 3.5 - 4.8 g/dL [facility] Bilirubin Total 0.7 0.3 - 1.2 mg/dL [facility] Alkaline Phosphatase 42 30 - 115 IU/L [facility] AST 18 10 - 40 IU/L [facility] ALT 18 10 - 40 IU/L [facility] 02/13/2010 12:5 8 PM EDT 02/13/2010 1:28 PM EDT us Duarte Whittaker LAB BLOOD ORDERABLES Final Resul t [facility] [address] [place] [address], from Last 3 Months or Most Recently Relevant to Health Maintenance Insurance [facility] MEDICARE Care Teams Feeder Associate Relationship Specialty Start Date End Date Luis Fernando Schmitz MD [address] [place] [address] PCP - General Internal Medicine 02/28/24
--- OUTSIDE RECORDS SUMMARY | 2025-04-26 20:49 | XMS_ITS | Clinical Summary ---
Author Organization [facility] Address [address] [address] Phone Care Team Providers Care Highway Maintenance Supervisor Name Role Phone Laney Laura MD Primary Care Provider [phone]- [phone] Allergies Active Allergy Reactions Criticality Noted Date [...] 09/21/2014 MAMMOGRAM 2022 HEMOGLOBIN A1C 12/03/2023 06/04/2023 TSH LEVEL 06/04/2024 06/04/2023 INFLUENZA VACCINE (#1) 2025 06/11/2023 COVID-19 VACCINE ( - 2023-2 5 season) 2025 HIV ONE-TIME SCREENING (18-6 5 YEARS) Completed [...] this topic Medical Devices Implanted Type Area Pleat Taper Device Identifier Shelf Expiration Date Model / Serial / Lot Stimulator-08/01 Implanted:08/01 (Quantity not on file) Stimulator Chest 106 / / Description:rogelio #[id number] model 106. VNS Procedures Procedure Name Priority Date/Time Associated Diagnosis Comments HEMOGLOBIN A1C Routine 06/04/2023 7:31 AM EDT TSH WITH REFLEX Routine 06/04/2023 7:31 AM EDT from Last 3 Months or Most Recently Relevant to Health Maintenance Results * TSH with reflex (06/04/2023 7:31 AM EDT) TSH 3.16 0.50 - 5.70 uIU/mL [facility] Blood 06/04/2023 7:31 AM EDT 06/04/2023 7:44 AM EDT us Aubrey Quach MD LAB BLOOD ORDERABLES Final Re sult [facility] [address] [place] [id number] * Hemoglobin A1c (06/04/2023 7:31 AM EDT) HEMOGLOBIN A1C 4.9 4.2 - 5.6 % [facility] Comment: HbA1c levels 5.7-6.4% [...] ORDERABLES Final Re sult Performing Organization Address City/State/[facility] Co de Phone Number [facility] [address] [place] [address] from Last 3 Months or Most Recently Relevant to Health Maintenance Insurance MEDICARE PART A & B [facility] MEDICARE PART A & B [place] & [place] PART A & B HEALTH MEDICARE PART A & B HEALTH MEDICARE PART A & B HEALTH MEDICARE PART A & B HEALTH MEDICARE PART A & B [facility] MEDICARE PART A & B [facility] Advance Directives For more information, please contact: [phone] (9AM - 5PM [facility], Tuesday-Tuesday) Documents on File Type Date Recorded Patient Fur Cutting Machine Operator Expl anation Healthcare Proxy 06/14/2023 2:34 PM * Full Code (Latest Code Status on File) Date Activated Date Inactivated Comments 06/04/2023 12:32 AM Question Answer Comments Code Status Confirmed With: Family Care Teams Highway Maintenance Supervisor Relationship Specialty Start Date End Date Laney Laura MD [address] [place] [id number] PCP - General 01/29/14 Additional Source Comments The information contained in this document represents components of the legal health record. It is not the complete legal health record.[facility]
--- OUTSIDE RECORDS SUMMARY | 2025-04-26 20:49 | XMS_ITS | Clinical Summary ---
Author Organization [facility] Address [address] [place] [address] Phone Care Team Providers Care Roustabout Hand Name Role Phone Shelton Espinoza MD Primary Care Provider [phone] Allergies Active Allergy Reactions Criticality Noted Date Comments Dolasetron 04/25/2025 Agitation Phenobarbital 04/25/2025 RASH Phenytoin Sodium Rash High 11/23/2005 Valproic Acid 04/25/2025 UNKNOWN Medications levETIRAcetam (KEPPRA) 750 mg tablet Take 2 tablets (1,500 mg total) by mouth 2 (two) times a day. 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 Max Daily Amount: 20 mg 60 tablet 5 05/26/20 25 Active lacosamide (VIMPAT) 200 mg tablet tablet Take 1 tablet (200 mg total) by mouth 2 (two) times a day. Max Daily Amount: 400 mg 60 tablet 5 05/26/20 25 Active lamoTRIgine (LaMICtal) 25 mg tablet Take 14 tablets (350 mg total) by mouth 2 (two) times a day. 840 each 5 05/26/20 25 Active perampanel (FYCOMPA) 6 mg tablet Take 1 tablet (6 mg total) by mouth 2 (two) times a day. Max Daily Amount: 12 mg 60 tablet 5 05/26/20 Active fluvoxaMINE (LUVOX) 100 mg tablet Take 1 tablet (100 mg total) by mouth at bedtime. 30 each 5 05/26/20 Active sertraline (ZOLOFT) 25 mg tablet Take 1 tablet (25 mg total) by mouth 1 (one) time each day for 3 doses. 3 each 5 05/01/20 Active sertraline (ZOLOFT) 50 mg tablet Take 1 tablet (50 mg total) by mouth 1 (one) time each day for 1 dose. 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 ([facility] V24, [facility] V28) 2005 Encounters Date Type Department Care Team Description 04/24/2025 2:20 PM EDT - 04/26/2025 7:23 PM EDT Hospital Encounter [facility] [address] [place] [id number] Lacey Diaz MD Reid, MD Bambi Klein Ross, MD Seralathan, Manikandan, MD Kela, MD Patric Vázquez James T, MD Altered mental status, unspecified altered mental status type (Primary Dx); Agitation; History of seizure; Generalized nonconvulsive epilepsy with intractable epilepsy ([facility] V24, [facility] V28) Discharge Disposition: Home or Self Care from Last 3 Months Immunizations Name Administration Dates Next Due Influenza trivalent, with pr eservative (Fluzone; Afluria) 6mo and older 07/13/2005 PPD Test 12/29/2001 Medical History Medical History Date Comments Seizures ([facility] V24, [facility] V28) Social History Tobacco Use Types Packs/Day Years [...] on file Sexual Orientation Not on file Obstetrics History Last Filed Vital Signs Vital Sign Reading [...] Mass Index 25.79 04/24/2025 5:57 PM EDT Plan of Treatment Health Maintenance Due Date Last Done Comments Breast Cancer Screening 1982 Diabetes: Annual Foot Exam 1992 Diabetes: Annual Retina Eye Exam 1992 Hepatitis B Vaccines (1 of 3 - 19+ 3-dose series) 2001 Cervical Cancer Screening: Pap Smear 04/14/2009 04/14/2006, 04/14/2006 Cholesterol Screening (Lipid Panel) 07/04/2022 Hepatitis C Screening 07/04/2022 Medicare Annual Wellness Visit 07/04/2022 Depression Screening 08/01/2024 COVID-19 Vaccine ( season) 2025 Influenza Vaccine (#1) 2025 3, 06/09/2020, 08/15/2019, Additional history exists Diabetes: Annual Urine Albumin-Creatinine Ratio (uACR) 04/24/2025 Diabetes: Blood Sugar Control Test (HGBA1C) 04/24/2025 Diabetes: Annual GFR (Glomerular Filtration Rate) 04/26/2026 04/26/2025, 04/24/2025, 02/13/2010, Additional history exists Social Influencers of Health Screening 04/26/2026 04/26/2025 DTaP,Tdap,and Td Vaccines (2 - Td or Tdap) 07/14/2028 07/14/2018 RSV Immunization Adult Patients (1 - 1-dose 75+ series) 2057 HIV Screening Completed 05/17/2005 Pneumococcal Vaccine: Pediatrics (0 to 5 Years) and At-Risk Patients (6 to 49 Years) Aged Out 08/25/2010 No longer eligible based on patient's age to complete this topic HIB Vaccines Aged Out No longer eligi [...] 20 months Aged Out No longer eligible based on [...] mental status, unspecified altered mental status type DOMINGUEZ URINE CULTURE TUBE STAT 04/24/2025 6:58 PM EDT URINALYSIS WITH REFLEX MICROSCOPIC AND CULTURE STAT 04/24/2025 6:58 PM EDT DRUG ABUSE SCREEN 8A PANEL, URINE STAT 04/24/2025 6:58 PM EDT URINALYSIS WITH REFLEX MICROSCOPIC AND CULTURE STAT 04/24/2025 6:58 PM EDT CULTURE URINE STAT 04/24/2025 6:[address] HEAD WO CONTRAST STAT 04/24/2025 6 :08 PM EDT COMPLETE BLOOD COUNT STAT 04/24/2025 5:41 PM EDT ETHANOL STAT 04/24/2025 3:18 PM EDT THYROID STIMULATING HORMONE WITH REFLEX TO FREE T4 AND FREE T3 STAT 04/24/2025 3:18 PM EDT TROPONIN I HIGH SENSITIVITY STAT 04/24/2025 3:18 PM EDT MAGNESIUM STAT 04/24/2025 3:18 PM EDT HCG, SERUM, QUALITATIVE STAT 04/24/2025 3:18 PM EDT BASIC METABOLIC PANEL STAT 04/24/2025 3:18 PM EDT HM HPV Routine 04/14/2006 HIV SCREENING Routine 05/17/2005 from Last 3 Months or Most Recently Relevant to Health Maintenance Results * ROUTINE EEG (04/26/2025 8:32 AM EDT) Narrative Dl White MD - 04/26/2025 2:32 PM EDT Dl White MD 04/26/2025 2:39 PM Routine EEG Date/Time: 04/26/2025 2:32 PM Performed by: Dl White MD Authorized by: DREW Magaña Lyric RUSSELL NEUROLOGY ORDERABLES Fi nal Result * (ABNORMAL) CBC auto differential (04/26/2025 5:42 AM EDT) WBC 7.3 4.8 - 10.8 K/mcL LAB HEMETOLOGY METHOD 04/26/2025 6:46 AM EDT [facility] RBC 3.70(L) 3.80 - 4.80 M/mcL LAB HEMETOLOGY METHOD 04/26/2025 6:46 AM EDT [facility] Hemoglobin 11.5 11.5 - 16.0 g/dL LAB HEMETOLOGY METHOD 04/26/2025 6:46 AM EDT [facility] Hematocrit 35.2 35.0 - 47.0 % LAB HEMETOLOGY METHOD 04/26/2025 6:46 AM EDT [facility] MCV 95.1 79.0 - 98.0 FL LAB HEMETOLOGY METHOD 04/26/2025 6:46 AM [facility] MCH 31.1 27.0 - 32.0 pcg LAB HEMETOLOGY METHOD 04/26/2025 6:46 AM [facility] MCHC 32.7 32.0 - 37.0 g/dL LAB HEMETOLOGY METHOD 04/26/2025 6:46 AM [facility] RDW 12.8 11.0 - 15.0 % LAB HEMETOLOGY METHOD 04/26/2025 6:46 AM [facility] Platelets 287 130 - 400 K/mcL LAB HEMETOLOGY METHOD 04/26/2025 6:46 AM [facility] MPV 9.4 7.0 - 11.0 FL LAB HEMETOLOGY METHOD 04/26/2025 6:46 AM [facility] NRBC 0.0 <1.0 % LAB HEMETOLOGY METHOD 04/26/2025 6:46 AM [facility] NRBC Absolute 0.00 <0.10 K/mcL LAB HEMETOLOGY METHOD 04/26/2025 6:46 AM [facility] Neutrophils Relative 43.0 % LAB HEMETOLOGY METHOD 04/26/2025 6:46 AM [facility] Lymphocytes Relative 45.2 % LAB HEMETOLOGY METHOD 04/26/2025 6:46 AM [facility] Monocytes Relative 6.7 % LAB HEMETOLOGY METHOD 04/26/2025 6:46 AM [facility] Eosinophils Relative 4.4 % LAB HEMETOLOGY METHOD 04/26/2025 6:46 AM [facility] Basophils Relative 0.4 % LAB HEMETOLOGY METHOD 04/26/2025 6:46 AM [facility] Immature Granulocytes Relative 0.3 % LAB HEMETOLOGY METHOD 04/26/2025 6:46 AM EDT [facility] Neutrophils Absolute 3.14 1.50 - 7.00 K/mcL LAB HEMETOLOGY METHOD 04/26/2025 6:46 AM EDT [facility] Lymphocytes Absolute 3.30 1.00 - 5.00 K/mcL LAB HEMETOLOGY METHOD 04/26/2025 6:46 AM EDT [facility] Monocytes Absolute 0.49 0.20 - 1.00 K/mcL LAB HEMETOLOGY METHOD 04/26/2025 6:46 AM EDT [facility] Eosinophils Absolute 0.32 0.00 - 0.50 K/mcL LAB HEMETOLOGY METHOD 04/26/2025 6:46 AM EDT [facility] Basophils Absolute 0.03 0.00 - 0.20 K/mcL LAB HEMETOLOGY METHOD 04/26/2025 6:46 AM EDT [facility] Immature Granulocytes Absolute 0.02 0.00 - 0.03 K/[facility] LAB [facility] 04/26[facility]2025 6[facility] Blood Venous blood specimen / Unknown Venipuncture / Unknown 04/26/2025 5:42 AM EDT 04/26/2025 6:10 AM EDT Lyric RUSSELL LAB BLOOD ORDERABLES Fi nal Result [facility] [address] [place] [address], * Basic metabolic panel (04/26/2025 5:42 AM EDT) Only the most recent of2 resultswithin the time period is included. Sodium 141 133 - 145 mmol/L LAB CHEMISTRY METHOD 04/26/2025 7:02 AM EDT [facility] Potassium 4.1 3.5 - 5.5 mmol/L LAB CHEMISTRY METHOD 04/26/2025 7:02 AM [facility] Chloride 109 96 - 110 mmol/L LAB CHEMISTRY METHOD 04/26/2025 7:02 AM [facility] CO2 26 21 - 32 mmol/L LAB CHEMISTRY METHOD 04/26/2025 7:02 AM [facility] Anion Gap 6 3 - 11 LAB CHEMISTRY METHOD 04/26/2025 7:02 AM [facility] Glucose 88 70 - 100 mg/dL LAB CHEMISTRY METHOD 04/26/2025 7:02 AM [facility] BUN 9 5 - 25 mg/dL LAB CHEMISTRY METHOD 04/26/2025 7:02 AM [facility] Creatinine 0.65 0.50 - 1.10 mg/dL LAB CHEMISTRY METHOD 04/26/2025 7:02 AM [facility] eGFR 113 >=60 mL/min/1. 73m2 LAB CHEMISTRY METHOD 04/26/2025 7:02 AM [facility] Comment:Calculation based on the Chronic Kidney Disease Epidemiology Collaboration (CKD-EPI) equation refit without adjustment for race. BUN/Creatinine Ratio 13.8 LAB CHEMISTRY METHOD 04/26/2025 7:02 AM [facility] Calcium 8.9 8.5 - 10.5 mg/dL LAB CHEMISTRY METHOD 04/26/2025 7:02 AM [facility] Blood Venous blood specimen / Unknown Venipuncture / Unknown 04/26/2025 5:42 AM EDT 04/26/2025 6:10 AM EDT us Lyric RUSSELL LAB BLOOD ORDERABLES Fi nal Result [facility] [address] [place] [address], * (ABNORMAL) Ammonia (04/25/2025 7:40 PM EDT) Ammonia 65(H) 11 - 35 mcmol/L LAB CHEMISTRY METHOD 04/25/2025 9:34 PM EDT [facility] Blood Venous blood specimen / Unknown Venipuncture / Unknown 04/25/2025 7:40 PM EDT 04/25/2025 8:31 PM EDT Lyric RUSSELL LAB BLOOD ORDERABLES Fi nal Result Performing Organization Address [facility]/State/ZIP Co de Phone Number [facility] [address] [place] [address], [place] [phone] * (ABNORMAL) POCT Glucose, blood (04/25/2025 3:41 PM EDT) [facility] Glucose POCT 110(H) 70 - 100 mg/dL 04/25/2025 3:41 PM EDT [facility] Blood Capillary blood specimen / Unknown 04/25/2025 3:41 PM EDT 04/25/2025 3:42 PM EDT Efrain Medina MD LAB POINT OF CA RE TEST DOCKED DEVICE UNSOLICITED RESULTS Final Result Performing Organization Address [facility]/ZIP Co de Phone Number [facility] [address] [place] [address], [place] [phone] * Creatine kinase (04/25/2025 1:45 PM EDT) [facility] Total CK 215 22 - 269 unit/L LAB CHEMISTRY METHOD 04/25/2025 2:26 PM EDT [facility] Blood Venous blood specimen / Unknown Venipuncture / Unknown 04/25/2025 1:45 PM EDT 04/25/2025 1:57 PM EDT Jose Lacy MD LAB BLOOD ORDERABLES Final Resul t [facility] [address] [place] [address], [place] [phone] * (ABNORMAL) Lactate (04/25/2025 1:42 PM EDT) [facility] Lactate 2.1(H) 0.4 - 2.0 mmol/L LAB CHEMISTRY METHOD 04/25/2025 2:42 PM EDT [facility] Blood Venous blood specimen / Unknown Venipuncture / Unknown 04/25/2025 1:42 PM EDT 04/25/2025 1:57 PM EDT Jose Lacy MD LAB BLOOD ORDERABLES Final Resul t Performing Organization Address City/[facility]/ZIP Co de Phone Number [facility] [address] [place] [address], [place] [phone] * EEG MONITORING EXTENDED 41-60 MINUTES (04/25/2025 8:26 AM EDT) Narrative Dl White MD - 04/25/2025 12:23 PM EDT Dl White MD 04/25/2025 12:27 PM EEG Date/Time: 04/25/2025 12:23 PM Performed by: Dl White MD Authorized by: Lacey Diaz MD Lacey Diaz MD NEUROLOGY ORDERABLES Final Resul t * (ABNORMAL) Urinalysis with reflex microscopic and culture (04/24/2025 6:58 PM EDT) Pathologist [facility] [place] Urine 1.021 1.003 - 1.030 LAB URINALYSIS - AUTOMATED METHOD 04/24/2025 7:41 PM EDT [facility] pH, Urine 6.5 5.0 - 8.0 pH LAB URINALYSIS - AUTOMATED METHOD 04/24/2025 7:41 PM EDT [facility] Leukocytes, Urine Trace(A) Negative LAB URINALYSIS - AUTOMATED METHOD 04/24/2025 7:41 PM [facility] Nitrite, Urine Negative Negative LAB URINALYSIS - AUTOMATED METHOD 04/24/2025 7:41 PM [facility] Protein, Urine Negative <=Trace mg/dL LAB URINALYSIS - AUTOMATED METHOD 04/24/2025 7:41 PM [facility] Glucose, Urine Negative Negative mg/dL LAB URINALYSIS - AUTOMATED METHOD 04/24/2025 7:41 PM [facility] Ketones, Urine Negative Negative mg/dL LAB URINALYSIS - AUTOMATED METHOD 04/24/2025 7:41 PM [facility] Urobilinogen, Urine 0.2 0.2 - 1.0 mg/dL LAB URINALYSIS - AUTOMATED METHOD 04/24/2025 7:41 PM [facility] Bilirubin, Urine Negative Negative LAB URINALYSIS - AUTOMATED METHOD 04/24/2025 7:41 PM [facility] Blood, Urine Negative Negative LAB URINALYSIS - AUTOMATED METHOD 04/24/2025 7:41 PM [facility] RBC, Urine 4.0 0 - 4 /HPF LAB URINALYSIS - AUTOMATED METHOD 04/24/2025 7:41 PM [facility] WBC, Urine 2.2 0 - 4 /HPF LAB URINALYSIS - AUTOMATED METHOD 04/24/2025 7:41 PM [facility] Squamous Epithelial, Urine 34 0 - 60 /LPF LAB URINALYSIS - AUTOMATED METHOD 04/24/2025 7:41 PM [facility] Bacteria, Urine Negative Negative /HPF LAB URINALYSIS - AUTOMATED METHOD 04/24/2025 7:41 PM [facility] Hyaline Casts, Urine 0.4 0 - 3 /LPF LAB URINALYSIS - AUTOMATED METHOD 04/24/2025 7:41 PM [facility] Urine Urine specimen obtained by clean catch procedure / Unknown Non-blood Collection / Unknown 04/24/2025 6:58 PM EDT 04/24/2025 7:19 PM EDT us Lacey Diaz MD LAB URINE ORDERABLES Final Resul t Performing Organization Address [facility] Co de Phone Number [facility] [address] [place] [address], [place] [phone] * Dominguez urine culture tube (04/24/2025 6:58 PM EDT) Extra Tube Hold for add-ons. 04/24/2025 9:01 PM EDT [facility] Comment:Auto resulted. Urine Urine specimen obtained by clean catch procedure / Unknown Non-blood Collection / Unknown 04/24/2025 6:58 PM EDT 04/24/2025 7:19 PM EDT us Lacey Diaz MD LAB URINE ORDERABLES Final Resul t Performing Organization Address [facility] de Phone Number [facility] [address] [place] [address], [place] [phone] * (ABNORMAL) Drug abuse screen 8a panel, urine (04/24/2025 6:58 PM EDT) Amphetamine Screen, Ur Negative Negative LAB CHEMISTRY METHOD 5 7:43 PM EDT [facility] Comment:Certain OTC medicati ons containing ephedrine, phenylephrine, pseudoephedrine and phenylpropanolamine can cause false positive results. Barbiturate Screen, Ur Negative Negative LAB CHEMISTRY METHOD 5 7:43 PM EDT [facility] Benzodiazepine Screen, Ur Positive(A ) Negative LAB CHEMISTRY METHOD 5 7:43 PM EDT [facility] Cocaine Screen, Ur Negative Negative LAB CHEMISTRY METHOD 5 7:43 PM EDT [facility] Opiate Screen, Ur Negative Negative LAB CHEMISTRY METHOD 5 7:43 PM EDT [facility] Cannabinoid (THC) Screen, Ur Positive(A ) Negative LAB CHEMISTRY METHOD 5 7:43 PM EDT [facility] Comment:Specimens from patie nts taking pantoprazole sodium (Protonix) have been shown to produce false positive results. Oxycodone Screen, Ur Negative Negative LAB CHEMISTRY METHOD 5 7:43 PM EDT [facility] Fentanyl, Ur Negative Negative LAB CHEMISTRY METHOD 5 7:43 PM EDT [facility] Urine Urine specimen obtained by clean catch procedure / Unknown Non-blood Collection / Unknown 04/24/2025 6:58 PM EDT 04/24/2025 7:19 PM EDT Narrative [facility] - 04/24/2025 7:43 PM EDT [...] MD LAB URINE ORDERABLES Final Resul t [facility] [address] [place] [address], * Culture urine (04/24/2025 6:58 PM EDT) Culture, Urine 10,000-49,000 CFU/mL Mixed bacterial morphotypes present suggestive of possible contamination during collection. Suggest appropriate recollection if clinically indicated. 04/26/2025 10:44 AM EDT [facility] Urine Urine specimen obtained by clean catch procedure / Unknown Non-blood Collection / Unknown 04/24/2025 6:58 PM EDT 04/24/2025 7:41 PM EDT us Lacey Diaz MD LAB MICROBIOLOGY - GENERAL ORDER KRUPA Final Result [facility] [address] [place] [address], [place] [phone] * CT Head wo Contrast (04/24/2025 6:08 [...] by: Lázaro Mcdowell MD on 04/24/2025 18:31:38 us Lacey Diaz MD IMG CT PROCEDURES Final Result * (ABNORMAL) CBC (04/24/2025 5:41 PM EDT) [facility] WBC 11.5(H) 4.8 - 10.8 K/mcL LAB HEMETOLOGY METHOD 04/24/2025 6:06 PM [facility] RBC 3.90 3.80 - 4.80 M/mcL LAB HEMETOLOGY METHOD 04/24/2025 6:06 PM [facility] Hemoglobin 12.2 11.5 - 16.0 g/dL LAB HEMETOLOGY METHOD 04/24/2025 6:06 PM [facility] Hematocrit 37.6 35.0 - 47.0 % LAB HEMETOLOGY METHOD 04/24/2025 6:06 PM [facility] MCV 97.2 79.0 - 98.0 FL LAB HEMETOLOGY METHOD 04/24/2025 6:06 PM [facility] MCH 31.5 27.0 - 32.0 pcg LAB HEMETOLOGY METHOD 04/24/2025 6:06 PM [facility] MCHC 32.4 32.0 - 37.0 g/dL LAB HEMETOLOGY METHOD 04/24/2025 6:06 PM [facility] RDW 12.9 11.0 - 15.0 % LAB HEMETOLOGY METHOD 04/24/2025 6:06 PM [facility] Platelets 324 130 - 400 K/mcL LAB HEMETOLOGY METHOD 04/24/2025 6:06 PM [facility] MPV 9.2 7.0 - 11.0 FL LAB HEMETOLOGY METHOD 04/24/2025 6:06 PM [facility] NRBC 0.0 <1.0 % LAB HEMETOLOGY METHOD 04/24/2025 6:06 PM [facility] NRBC Absolute 0.00 <0.10 K/mcL LAB HEMETOLOGY METHOD 04/24/2025 6:06 PM EDT [facility] Blood Venous blood specimen / Unknown Venipuncture / Unknown 04/24/2025 5:41 PM EDT 04/24/2025 5:57 PM EDT us Lacey Diaz MD LAB BLOOD ORDERABLES Final Resul t Performing Organization Address [facility] Co de Phone Number [facility] [address] [place] [address], [place] [phone] * Troponin I High Sensitivity (04/24/2025 3:18 PM EDT) [facility] High Sensitivity Troponin I 4 <=54 ng/L LAB CHEMISTRY METHOD 04/24/2025 5:05 PM EDT [facility] Blood Venous blood specimen / Unknown Venipuncture / Unknown 04/24/2025 3:18 PM EDT 04/24/2025 4:33 PM EDT Narrative [facility] - 04/24/2025 5:05 PM EDT High levels of biotin in samples may falsely decrease hsTroponin values. Use caution when interpreting hsTroponin results in patients taking biotin who exhibit renal impairment (eGFR <60) or in patients taking more than 20 mg/day of biotin. us Lacey Diaz MD LAB BLOOD ORDERABLES Final Resul t Performing Organization Address [facility] Co de Phone Number [facility] [address] [place] [address], [place] [phone] * Thyroid stimulating hormone with reflex to free t4 and free t3 (TSH Reflex) (04/24/2025 3:18 PM EDT) [facility] TSH 2.23 0.40 - 4.00 mcIU/mL LAB CHEMISTRY METHOD 04/24/2025 5:58 PM EDT [facility] Blood Venous blood specimen / Unknown Venipuncture / Unknown 04/24/2025 3:18 PM EDT 04/24/2025 4:32 PM EDT us Lacey Diaz MD LAB BLOOD ORDERABLES Final Resul t Performing Organization Address [facility]/ZIP Co de Phone Number [facility] [address] [place] [address], [place] [phone] * hCG Qualitative (04/24/2025 3:18 PM EDT) Pathologist [facility] hCG Qual Negative Negative 04/24/2025 5:06 PM EDT [facility] Blood Venous blood specimen / Unknown Venipuncture / Unknown 04/24/2025 3:18 PM EDT 04/24/2025 4:32 PM EDT us Lacey Diaz MD LAB BLOOD ORDERABLES Final Resul t Performing Organization Address [facility] Co de Phone Number [facility] [address] [place] [address], [place] [phone] * Magnesium (04/24/2025 3:18 PM EDT) [facility] Magnesium 2.2 1.9 - 2.6 mg/dL LAB CHEMISTRY METHOD 04/24/2025 5:00 PM EDT [facility] Blood Venous blood specimen / Unknown Venipuncture / Unknown 04/24/2025 3:18 PM EDT 04/24/2025 4:32 PM EDT us Lacey Diaz MD LAB BLOOD ORDERABLES Final Resul t Performing Organization Address [facility]/ZIP Co de Phone Number [facility] [address] [place] [address], [place] [phone] * Ethanol (04/24/2025 3:18 PM EDT) [facility] Ethanol Level <3 0 - 10 mg/dL LAB CHEMISTRY METHOD 04/24/2025 5:00 PM EDT [facility] Blood Venous blood specimen / Unknown Venipuncture / Unknown 04/24/2025 3:18 PM EDT 04/24/2025 4:32 PM EDT Lacey Diaz MD LAB BLOOD ORDERABLES Final Resul t [facility] [address] [place] [address], * Cervical Cancer Screening: HPV (04/14/2006) Cervical Cancer Screening: HPV no interpretation , abstracted Historical Provider HEALTH MAINTENANCE Final Result * HIV Screening (05/17/2005) HIV Screening abstracted Augustine Burris MD HEALTH MAINTENANCE Final Result from Last 3 Months or Most Recently Relevant to Health Maintenance Insurance MEDICARE MEDICAID - [place] Advance Directives * Full Code - Default (Latest Code Status on File) Date Activated Date Inactivated Comments 04/25/2025 4:11 PM This is order is used when code status has not been discussed with the patient, or code status is otherwise unknown/unconfirmed To update the patient's code status, place a code status order. Do not modify or discontinue any currently active code status orders. Care Teams Roustabout Hand Relationship Specialty Start Date End Date Shelton Espinoza MD [address] [place] [address] PCP - General 01/17/06
[2025-04-26 20:59] LABS: MANUAL DIFF FLAG NO
[2025-04-26 21:00] LABS: Hematocrit 37.4 % (37.0-47.0); Hemoglobin 12.8 g/dl (12.0-16.0); Imm Gran Abs Auto 0.02 X10*3/uL (0.00-0.03); Imm Gran Pct Auto 0.3 % (0.0-0.4); Lymphocytes Absolute Auto 3.2 X10*3/uL (1.2-4.9); Mean Corpuscular HGB Conc 34.2 g/dl (31.0-35.0); Mean Corpuscular Hemoglobin 32.5 pg (27.0-33.0); Mean Corpuscular Volume 94.9 fL (80.0-98.0); NRBC Abs Auto 0.000 X10*3/uL (0.0-0.012); NRBC Pct Auto 0.0 /100WBC (0.0-0.2); Platelet Count 188 X10*3/uL (160-400); Red Blood Count 3.94 X10*6/uL (4.20-5.50); White Blood Count 7.8 X10*3/uL (4.8-10.8)
[2025-04-26 21:20] LABS: Acetaminophen LAB < 3 mcg/mL (<30); Alanine Aminotransferase 22 U/L (0-31); Albumin Level 5.0 g/dL (3.5-5.0); Alkaline Phosphatase 56 U/L (39-117); Anion Gap 14 (12-20); Aspartate Amino Transferase 29 U/L (5-31); Blood Urea Nitrogen 12 mg/dL (9-16); Calcium 9.0 mg/dL (8.4-10.2); Carbon Dioxide 22 mmol/L (22-29); Chloride 109 mmol/L (96-108); Creatinine Clr Calc Pharmacy 60.6; Estimated Glomerular Filt Rate > 60; Potassium 3.8 mmol/L (3.3-5.1); Salicylate < 5.0 mg/dL (15-30); Sodium 141 mmol/L (135-145); Total Protein 7.4 g/dL (6.5-8.0)
[2025-04-26 21:59] LABS: Cannabinoid Screen Urine POSITIVE (Not Detect)
[2025-04-26 22:08] LABS: UPreg QC Valid YES
[2025-04-27] VITALS: BP 105/59; PULSE 62; RESP 18; TEMP 36.7; O2SAT 95
[2025-04-27 03:18] VITALS: BP 97/61; PULSE 64; RESP 18; TEMP 36.9; O2SAT 96
[2025-04-27 06:23] VITALS: BP 97/64; PULSE 62; RESP 16; TEMP 36.7; O2SAT 96
--- NOTE | 2025-04-27 08:09 | PC.NURSE ---
report called to [facility] pod RN, pt to move to ED 2.
--- NOTE | 2025-04-27 12:05 | PHA.MEDREC ---
Pharmacy Consult ? Medication Reconciliation Pharmacy has reviewed the medication reconciliation completed completed by nursing.
--- NOTE | 2025-04-27 13:42 | PC.NURSE ---
Pt upon transfer from the Main ED needed assist from the to her bed. Her mattress is placed on the floor for Seizure precautions and the floppy nature' Of her movements. Her mother is with her for most of the morning, and advocates for medications. she is able to get a non-formulary medication brought in by Pts daughter. Pts mentation and stature improves she is ambulatory and spends time with peers when family leaves. she colors with peers and needs frequent re-direction for intrusive behaviors. she has poor physical boundaries. She is compliant with her medications, and denies SI/HI/AVH
[2025-04-27 15:41] VITALS: BP 111/69; PULSE 82; RESP 16; TEMP 36.4; O2SAT 97
--- NOTE | 2025-04-27 19:39 | PC.NURSE ---
assumed care of pt at approximately 1845. pt is currently in her bed resting, no apparent distress. pt has been intermittently pacing the halls. no concerns at this time.
[2025-04-27 20:00] VITALS: BP 114/79; PULSE 91; RESP 18; TEMP 36.3; O2SAT 100
[2025-04-27] MEDS: PERAMPANEL 6 MG 6 EACH PO (20:59)
[2025-04-28 06:32] VITALS: RESP 16
--- NOTE | 2025-04-28 07:18 | PC.NURSE ---
Assumed care, report received. Pt is currently sleeping, she is brought breakfast. safety maintined.
[2025-04-28] MEDS: PERAMPANEL 6 MG 6 EACH PO ×2 (08:55→21:34)
[2025-04-28 09:03] VITALS: BP 122/71; PULSE 78; RESP 14; TEMP 36.1; O2SAT 99
--- NOTE | 2025-04-28 09:54 | PC.NURSE ---
Pt is in goos spirits, she is assisted with a shower and ADL's she continues with disorganized thought process and conversation. She much re-direction due to poor physical boundaries at times. she is compliant with medications and her breakfast.
[2025-04-28 13:57] VITALS: BP 122/81; PULSE 140; PULSE 82; RESP 17; RESP 22; TEMP 36.4; O2SAT 100
--- NOTE | 2025-04-28 13:58 | PC.NURSE ---
patient noted to have seizure like activity lasting approximately 30 seconds. upon assessment, pt noted to tense up throughout all extremities having difficulty maintaining contact/answering questions/following commands appropriately. vss and up to date aside from being tachycardic. no incontinence/trauma noted. pt did not seem to be in post-ictal state s/p event - able to answer questions/follow all commands. HR improved s/p event. MD notified/aware of event - no new orders at this time.
--- NOTE | 2025-04-28 22:48 | PC.NURSE ---
Pt had 2 visitors throughout the day, her mother and her daughter. Pt is emotional during these visit. Pt has difficulty with physical boundaries towards others. she showers in the AM with staff assist. She is compliant with meds and meals. she has 2 seizures during the shift lasting less than 15- 30 sec. Safety has bee maintained. Pt does recognize an Aura prior the the seizures. Pt has difficulty settling down at HS, she comes out the [facility]. station frequently to talk.
[2025-04-29 06:31] VITALS: BP 123/71; PULSE 72; RESP 20; TEMP 36.8; O2SAT 100
[2025-04-29 10:11] LABS: Appearance Urine Cloudy; Glucose Urine UA Negative (Negative); PH 6.0 (5.0-9.0); Specific Gravity - Urine >= 1.030 (1.005-1.025); UMIC TRIGGER UACC YES
[2025-04-29 10:18] LABS: UPreg QC Valid YES
--- NOTE | 2025-04-29 10:33 | PC.NURSE ---
pt slept till approx 930. awoke and started yelling for help, pt did not need any assistance when assessed, pt was medicated as ordered except for 2 of her meds which are coming from pharmacy, mother called a couple times asking for an update and wanting to bring in some home made egg salad for the pt. pt has not been eating much here and is a picky eater. spoke with KOBI Hoang and it is ok to have tghe food brought inand placed in hospital containers and given to the pt. security aware and mother aware. pt currently laying in bed with nad
[2025-04-29 10:35] LABS: UACC Culture Trigger YES
[2025-04-29] MEDS: PERAMPANEL 6 MG 6 EACH PO ×2 (10:42→22:29)
--- NOTE | 2025-04-29 13:55 | HO.PM.IMCN ---
History of Present Illness Data of Consult Service Date: 04/29/25 Primary Care Provider: Luis Fernando Liang MD HPI Reason for consult: Medical management 44-year-old female with a past medical history of psychogenic nonepileptic seizures, history of nerve, anxiety presented to the ED with erratic behavior and agitation. She was recently admitted to [facility] from [id number] of the head which was negative for acute findings. She had an EEG which was negative for seizure activity she also seen by a neurologist. They were recommendations to adjust her seizure medications, discontinue sertraline and hold her BuSpar. Her urine was negative for evidence of infection and , her U tox was positive for benzos and marijuana. Liver and renal function within normal limits, no electrolyte disturbances, no anemia or leukocytosis. She is admitted to inpatient for mood stabilization. Patient reports that she has had 2 seizures recently, unclear about details, poor historian. Review of Systems Review of Systems: Denies any shortness of breath, chest pain, dizziness, lightheadedness, abdominal pain or discomfort, nausea vomiting or diarrhea PMFSH Medical History Depression Panic disorder Anxiety Partial seizure disorder Epilepsy Social History Smoked in Last 30 Days: No Use of substances other than those prescribed or required for medical reasons: Yes Substance Use Type: Marijuana Substance Use Frequency: Occasionally Advance Directives: No Advance Directives Information Provided: No service: No Sexual orientation: Straight/Heterosexual Meds Allergies Allergy/AdvReac Type Severity Reaction Status Date / Time divalproex sodium (From Allergy Unknown Unknown Verified 04/26/25 19:53 Depakote) lorazepam Allergy Unknown Unknown Verified 04/26/25 19:53 medroxyprogesterone (From Allergy Unknown Unknown Verified 04/26/25 19:53 Depo-Provera) phenytoin (From Dilantin) Allergy Unknown Unknown Verified 04/26/25 19:53 Active Medications: Current Medications Acetaminophen (Acetaminophen 325 Mg Tablet) 650 mg PO Q6H PRN PRN Reason: Headache/Pain, Scale 1-10 Al Hydroxide/Mg Hydroxide (Magnesium Hydrox/Alum Hydrox 30 Ml Oral.Susp) 30 ml PO Q6H PRN PRN Reason: Heartburn/Nausea Clobazam (Clobazam 10 Mg Tablet) 10 mg PO BID [facility] Last Admin: 04/29/25 10:42 Dose: 10 mg Clonazepam (Clonazepam 0.5 Mg Tablet) 0.5 mg PO BID [facility] Last Admin: 04/29/25 09:39 Dose: 0.5 mg Hydroxyzine HCl (Hydroxyzine Hcl 25 Mg Tablet) 25 mg PO Q6H PRN PRN Reason: mild anxiety Lacosamide (Lacosamide 100 Mg Tablet) 200 mg PO BID [facility] Last Admin: 04/29/25 09:37 Dose: 200 mg Lamotrigine 300 mg/ (Lamotrigine 50 mg) 350 mg PO BID [facility] Last Admin: 04/29/25 09:38 Dose: 350 mg Levetiracetam (Levetiracetam 500 Mg Tablet) 1,500 mg PO BID [facility] Magnesium Hydroxide (Milk Of Magnesia 30 Ml Oral.Susp) 30 ml PO DAILY PRN PRN Reason: Constipation Nicotine (Nicotine 21 Mg Patch.Td24) 21 mg TRANSDERMA DAILY PRN PRN Reason: nicotine craving Nicotine Polacrilex (Nicotine Polacrilex 2 Mg Gum) 2 mg BUCCAL Q2H PRN PRN Reason: Nicotine Cravings Pt Own (Perampanel [ Fycompa] 6 Mg Tablet ) 6 mg PO BID [facility] Last Admin: 04/29/25 10:42 Dose: 6 mg Olanzapine (Olanzapine 5 Mg Tablet) 5 mg PO BID PRN PRN Reason: agitation Sertraline HCl (Sertraline Hcl 25 Mg Tablet) 25 mg PO DAILY [facility] Stop: 04/30/25 09:01 Last Admin: 04/29/25 09:38 Dose: 25 mg Trazodone HCl (Trazodone Hcl 50 Mg Tablet) 50 mg PO BEDTIME MRX1 PRN PRN Reason: Insomnia Home Medications ?Medication ?Instructions ?Recorded ?Confirmed ?Last Taken ?Type lacosamide 200 mg tablet (Vimpat) 200 mg PO BID 02/25/25 04/27/25 04/26/25 History sertraline 50 mg tablet 50 mg PO DAILY 02/25/25 04/27/25 04/26/25 History clobazam 10 mg tablet 10 mg PO BID 03/04/25 04/27/25 04/26/25 History clonazepam 0.5 mg tablet (Klonopin) 0.5 mg PO BID 03/04/25 04/27/25 Unknown History lamotrigine 100 mg tablet 350 mg PO BID 03/04/25 04/27/25 04/26/25 History levetiracetam 750 mg tablet 1,500 mg PO BID 03/04/25 04/27/25 04/26/25 History Physical Exam Vital Signs and Narrative: Vital Signs: Last Vital Signs Temp 98.2 F 04/29/25 06:31 Pulse 72 04/29/25 06:31 Resp 20 04/29/25 06:31 BP 123/71 04/29/25 06:31 Pulse Ox 100 04/29/25 06:31 O2 Del Method Room Air 04/29/25 06:31 BMI result Body Mass Index 41.0 Alert and oriented X3, in no apparent distress. Poor historian Neuro: CN II-X11 intact, no deficits, visual acuity intact EYES: PERRLA, EOM intact ENT: Hearing intact, lips moist Cardiac: S1 S2 RRR, No ectopy Pulmonary: lungs clear to auscultation, No increased WOB. Abdominal: BS active in all 4 quadrants, no guarding or tenderness MSK: Strength 5/5 upper and lower extremities : Deferred Extremities: No edema in lower extremities Psych: mood stable, Cooperative. Skin: Warm and dry, Intact Results Labs 04/26/25 20:54 04/26/25 20:54 Labs: Laboratory Results - last 24 hr 04/29/25 10:04 Urine Color [place] Urine Appearance Cloudy Urine pH 6.0 Ur Specific [place] >= 1.030 H Urine Protein 30 (1+) H Urine Glucose (UA) Negative Urine Ketones Trace Urine Blood Large (3+) H Urine Nitrite Negative Ur Leukocyte Esterase Trace H Urine RBC >20 H Urine WBC 11-20 H Ur Squamous Epith Cells >20 Urine Bacteria Trace Hyaline Casts 3-5 Urine Test NEGATIVE Assessment and Plan (1) Epilepsy: Qualifiers: Epilepsy type: unspecified Intractability: not intractable Status epilepticus: without status epilepticus Qualified Code(s): G40.909 - Epilepsy, unspecified, not intractable, without status epilepticus Status: Acute Plan 44-year-old female with history of seizure disorder, depression, panic disorder, status post vagus nerve stimulator, anxiety presented to the room with the erratic behavior. Now admitted to inpatient psych for mood stabilization. Depression/panic disorder Treatment per psychiatric team History of seizure disorder Has been seen by Neurology, Continue Alethea Montelongo lamotrigine Patient is a poor historian regarding seizure activity, she reports frequent seizures but unable to tell me when, how often or any circumstances. Thank you for allowing me to participate in the care of this patient. Will follow as needed, please notify medical provider with any changes in condition or concerns.
[2025-04-29 14:05] VITALS: BMI 26.2
[2025-04-29 14:06] VITALS: BP 138/90; PULSE 85; TEMP 36.2; O2SAT 98
--- NOTE | 2025-04-29 17:02 | PC.ADMIT ---
Addendum entered by Junie Casper RN 04/29/25 18:50: Received fax from Taryn HURD at [facility] containing medication list and AF team contact information. Call placed to pt's mother Manisha Banks (release signed). Manisha stated that pt receives services from [facility] that includes adoption social worker, casey saw operator, and nurse. Manisha stated that pt receives a monthly home visit by team. In received fax, Manisha Banks listed as pt's HCP and POA/Rep Payee. Manisha confirmed this and stated she would bring paperwork to hospital tomorrow. Manisha also stated that pt averaged 5 small seizures per month, however experienced small seizures everyday over last few days. Manisha stated pt has a vagal nerve stimulator, which was reportedly replaced in 12/2024. Manisha stated seizures are non-epileptic. Covering provider updated on received fax and medication list. Original Note: 44 y/o female admitted to at 1315 from [facility] on a 12b for increased anxiety/agitation and erratic behaviors. Per report pt presented to [facility] on 04/24 due to increased agitation, disorganized thoughts, and erratic behaviors that reportedly began after pt started a Zoloft taper one week ago. Pt reportedly was discharged from [facility] on 04/26, with her mother present. However while in the car pt became agitated, was screaming, and her mother brought her to [facility] ED. 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 Pt is on disability, and lives with her mother, who is her tire changer. Pt sees a neurologist at [facility]. Pt has a dx of OSIEL with [facility]. Per report, pt's mom described her daughter's altered mental status as uncharacteristic , and that at baseline pt is anxious but organized and coherent. Pt is expansive with poor physical boundaries, standing too close, touching and grabbing various staffs? arms. Pt is a poor historian, and largely provides responses that do not align with questions asked. When asked about fall history, pt replied ?Well I got my period, so yeah?. When asked about seizure history, pt stated ?Well I got glasses in the summer. I get hot and have two brothers?. When asked about anxiety/depression pt stated ?Oh yeah very high. Isn?t everyone?? When asked about AVH, pt stated ?I used to have seizures every day. I love them. I used to get complimented on them. I used to have really good dreams?. Pt denied ETOH use. Pt stated she consumes marijuana gummies, and added ?whatever kind of marijuana they have at parties. Whatever my doctor told me to take?. Skin check remarkable for various bruises on arms and legs. Utox positive for marijuana and benzos. BAL < 10. Release signed for pt?s mother. Pt placed on 5 minute checks for safety d/t seizure history and reported seizure activity while in POD.
--- NOTE | 2025-04-29 19:11 | PC.NURSE ---
RN called to room after MHC reported seizure like activity that lasted approximately 10 seconds. MHC stated that pt was in bed, speaking with MHC, and then began to shake her arms, and stopped responding to MHC. When RN entered room pt was awake and verbal. Drool noted on pt's cheek. Pt slightly disoriented for several minutes afterwards. Covering provider Consuelo Jacobs [facility] MANA[facility] notified. No new orders received.
[2025-04-29 20:00] VITALS: BP 141/64; PULSE 98; RESP 16; TEMP 36.3; O2SAT 92
--- NOTE | 2025-04-29 21:49 | HO.PSYADMNOT ---
HPI Date of Service: 04/29/25 Chief Complaint: decomp w/ recent med changes. Agitated Sources of Information: patient interviewed, chart reviewed and crisis/core team assessment reviewed HPI Subjective Notes: Section 12B Narrative: HPI: 44-year-old Tuvaluan speaking Cauc[place] female with a past medical history of psychogenic nonepileptic seizures, history of nerve, anxiety presented to the ED with erratic behavior and agitation. Patient was discharged home from [facility], however, while in the car she became overly agitated and had trouble regulating her thoughts and emotions. On M5: provider meets with patient in assigned room for psychiatric admission at 1600 on 04/29/25. Patient states reason for being here in the hospital is Seizure. Called 911. They are arguing . Further assessment, patient states that her daughter and her mom were angry at me. They said I am faking my sz . reports she has 6 sz episode lately but cannot tell what happened and cannot tell if there was witnesses. Denies substance use but report that she smokes week to help her with anxiety. Report she has psychiatrist, therapist and PCP. Report her mom manages her meds and she cannot recall even one name of home medications. Denies SI/SIB/HI/AVH. Denies suicide attempts. Report depression but denies anxiety. Patient is very poor historian. She is too disorganized to give the answer appropriate to the content being asked. She does not understand legal paper and what was explained to her if she wants to sign CV. I feel like she has no capacit to make her own decision. She is not sure if she has HCP or if her mom is her legal guardian. She does not know psychiatric illness hx. She wants to leave tomorrow and want to go home. She was recently admitted to [facility] from 04-24 to 04-[address] of the head which was negative for acute findings. She had an EEG which was negative for seizure activity she also seen by a neurologist. They were recommendations to adjust her seizure medications, discontinue sertraline and hold her BuSpar. Patient experienced sz episode in the ED pod on 04/28 and again on the unit in the evening. Nursing reports that qone of the [facility] was taking to patient and then patient began to shake her arms, unable to communicate , and began to drool which happened very quick. It resolved before nursing arrived to the scene. Patient was a bit disoriented afterwards. Nurses able to confirm home meds with mom. Need to do collateral to get hx of psychiatric illness/dx and treatment. Patient is poor historian. Not sure at this point if she should be on medication floor to monitor sz activities as it was reported that after 2099 patient had another sz episode. Past Psychiatric History: Unable to obtain. Patient is poor historian Medical Evaluation Reviewed: Yes Patient was seen by Hospitalist [facility] Medical History Depression Panic disorder Anxiety Partial seizure disorder Epilepsy Family History: Not able to obtain. Patient is so disorganized to answer questions. Social History: she is single, never . Lives with mom and her daughter. Substance History: Denies but report she smokes weed sometimes to help with anxiety Trauma History: Denies Diagnostics Vital Signs (24Hr): Vital Signs - 24 hr 04/29/25 06:31 04/29/25 14:06 Temperature 98.2 F 97.1 F Pulse Rate 72 85 Respiratory Rate 20 Blood Pressure 123/71 138/90 H Pulse Oximetry 100 98 Oxygen Delivery Method Room Air Room Air BMI result Body Mass Index 26.2 Labs 04/26/25 20:54 04/26/25 20:54 Labs: Laboratory Results - last 48 hr 04/29/25 10:04 Urine Color [place] Urine Appearance Cloudy Urine pH 6.0 Ur Specific [place] >= 1.030 H Urine Protein 30 (1+) H Urine Glucose (UA) Negative Urine Ketones Trace Urine Blood Large (3+) H Urine Nitrite Negative Ur Leukocyte Esterase Trace H Urine RBC >20 H Urine WBC 11-20 H Ur Squamous Epith Cells >20 Urine Bacteria Trace Hyaline Casts 3-5 Urine Test NEGATIVE Meds/Allergies Meds Home Medications ?Medication ?Instructions ?Recorded ?Confirmed ?Type lacosamide 200 mg tablet (Vimpat) 200 mg PO BID 02/25/25 04/27/25 History sertraline 50 mg tablet 50 mg PO DAILY 02/25/25 04/27/25 History clobazam 10 mg tablet 10 mg PO BID 03/04/25 04/27/25 History clonazepam 0.5 mg tablet (Klonopin) 0.5 mg PO DAILY 03/04/25 04/29/25 History lamotrigine 100 mg tablet 350 mg PO BID 03/04/25 04/27/25 History levetiracetam 750 mg tablet 1,500 mg PO BID 03/04/25 04/27/25 History clonazepam 1 mg tablet 1 mg PO DAILY@1700 04/29/25 04/29/25 History fluvoxamine 100 mg tablet 100 mg PO BEDTIME 04/29/25 04/29/25 History folic acid 1 mg tablet 1 mg PO DAILY 04/29/25 04/29/25 History hydroxyzine HCl 50 mg tablet 50 mg PO TID 04/29/25 04/29/25 History magnesium oxide 250 mg PO DAILY 04/29/25 04/29/25 History Narrative: Not able to review home meds list with patient. Allergies Allergies Allergy/AdvReac Type Severity Reaction Status Date / Time divalproex sodium (From Allergy Unknown Unknown Verified 04/26/25 19:53 Depakote) lorazepam Allergy Unknown Unknown Verified 04/26/25 19:53 medroxyprogesterone (From Allergy Unknown Unknown Verified 04/26/25 19:53 Depo-Provera) phenytoin (From Dilantin) Allergy Unknown Unknown Verified 04/26/25 19:53 Mental Status Exam Mental Status Exam Narrative: Patient is A+O, not really know reason brought her to the hospital. Very anxious, disorganized. Denies anxiety and depression, incongruent with mood and affect. Thought process is disorganized. Thought content with no SI/SIB/HI/AVH. Do not appear to be psychotic, inappropriate to thought content being asked. Poor judgment and insight. Assessment & Plan Assessment & Plan (1) Psychogenic nonepileptic seizure: Status: Acute Code(s): F44.5 - Conversion disorder with seizures or convulsions (2) Epilepsy: Status: Acute Qualifiers: Epilepsy type: unspecified Intractability: not intractable Status epilepticus: without status epilepticus Qualified Code(s): G40.909 - Epilepsy, unspecified, not intractable, without status epilepticus Code(s): G40.909 - Epilepsy, unspecified, not intractable, without status epilepticus (3) Status post VNS (vagus nerve stimulator) placement: Status: Acute Code(s): Z96.89 - Presence of other specified functional implants (4) Anxiety: Status: Acute Code(s): F41.9 - Anxiety disorder, unspecified Plan HPI: 44-year-old Tuvaluan speaking Cauc[place] female with a past medical history of psychogenic nonepileptic seizures, history of nerve, anxiety presented to the ED with erratic behavior and agitation. Patient was discharged home from [facility], however, while in the car she became overly agitated and had trouble regulating her thoughts and emotions. Patient is very poor historian and not a reliable person for hx and treatment intake d/t current mental status. She was recently admitted to [facility] from 04-24 to 04-[address] of the head which was negative for acute findings. She had an EEG which was negative for seizure activity she also seen by a neurologist. They were recommendations to adjust her seizure medications, discontinue sertraline and hold her BuSpar. Patient experienced sz episode in the ED pod on 04/28 and again on the unit in the evening. Nursing reports that qone of the [facility] was taking to patient and then patient began to shake her arms, unable to communicate , and began to drool which happened very quick. It resolved before nursing arrived to the scene. Patient was a bit disoriented afterwards. Nurses able to confirm home meds with mom. Need to do collateral to get hx of psychiatric illness/dx and treatment. Patient is poor historian. Not sure at this point if she should be on medication floor to monitor sz activities as it was reported that after 2099 patient had another sz episode. Formulation/clinical reasoning: Will monitor for sz and medication adjustment. Hospital course: 04/29/25: continue with all home meds. Nurses able to confirm med list with mother. Patient is on Sz precaution. Plan Patient on 5 minute checks for safety. Sz precaution. Admitted to M5. 12B: patient is too disorganized to sign in. Work with treatment team to do collateral Seen by hospitalist on 04/29/25: Patient educated on: diagnosis, medication risk/benefits, substance abuse and therapeutic strategies Informed Consent: further education needed Reason for continued inpatient stay Substantial Risk for: med/psych decompensation Statement Statement: I have reviewed the history and physical and performed a pertinent examination on my patient. No changes have occurred unless specified. If the History and Physical was not performed prior to admission, the Hospitalist's service will be consulted for completing the admission physical. Time Spent With Patient Time: Total time managing care of this patient today ____ minutes.
[2025-04-30 08:00] VITALS: BP 107/61; PULSE 74; TEMP 37.1; O2SAT 97
[2025-04-30] MEDS: PERAMPANEL 6 MG 6 EACH PO (08:19)
--- NOTE | 2025-04-30 09:16 | P.PNPSI_ITS ---
Subjective Subjective Date of Service: 04/30/25 Reason For Visit: decomp w/ recent med changes. Agitated Interim History: With patient; discussed with team; reviewed notes; discussed case with patient's mother was present Patient's mother reports that patient has been on Zoloft 200 mg for years; also on BuSpar 10 mg t.i.d.. On 04/18 outpatient provider added Luvox 100 mg to the Zoloft and BuSpar. On 04/19 provider lowered Zoloft to 100 mg but kept her on Luvox 100 mg and BuSpar, all of which she was on for another week. It was at this time that patient became agitated and delirious, excessively sweaty, shivering, had a tremor and developed diarrhea... Also frequency of partial seizures increased. Patient was brought to [facility] ED but then discharged after few hours in the same condition; her mother thus brought her to [place] ED. Shipping Lead Person discussed that with this history and patient's presentation she very likely had serotonin syndrome. Patient has been off Zoloft since coming to the ED; but she did get Luvox 100 mg. Patient's mother says she is definitely doing better and is probably a 6 or 7/10, 10 being patient has regular self. Shipping Lead Person discussed serotonin syndrome as well as discontinuation syndrome from abruptly stopping SSRIs; discussed treatment options with which mother and patient agreed. Mental Status Exam Mental Status Exam Narrative: Pt is alert and oriented; behavior is impulsive, somewhat disorganized, repeating herself several times, misunderstanding; patient is cooperative; patient is not in distress; dressed in casual attire with unkempt hair but adequate hygiene; mood is described as good and affect congruent; eye contact appropriate; Speech is a little loud, verbose; intermittent, mild psychomotor agitation present; thought process can be goal oriented but gets confused; Thought content is recent events, seizure disorder; no delusional thinking expressed; denies any SI/HI. Denies AVH and there is no evidence of perceptual disturbance. Patients insight and judgment impaired but per mother getting closer to baseline Diagnostics Vital Signs (24Hr): Vital Signs - 24 hr 04/29/25 14:06 04/29/25 20:00 04/30/25 08:00 Temperature 97.1 F 97.4 F 99.7 F Pulse Rate 85 98 74 Respiratory Rate 16 Blood Pressure 138/90 H 141/64 H 107/61 Pulse Oximetry 98 92 97 Oxygen Delivery Method Room Air Room Air Room Air BMI result Body Mass Index 26.2 Labs 04/26/25 20:54 04/26/25 20:54 Labs: Laboratory Results - last 48 hr 04/29/25 10:04 Urine Color [place] Urine Appearance Cloudy Urine pH 6.0 Ur Specific [place] >= 1.030 H Urine Protein 30 (1+) H Urine Glucose (UA) Negative Urine Ketones Trace Urine Blood Large (3+) H Urine Nitrite Negative Ur Leukocyte Esterase Trace H Urine RBC >20 H Urine WBC 11-20 H Ur Squamous Epith Cells >20 Urine Bacteria Trace Hyaline Casts 3-5 Urine Test NEGATIVE Medications Medications Current Medications Acetaminophen (Acetaminophen 325 Mg Tablet) 650 mg PO Q6H PRN PRN Reason: Headache/Pain, Scale 1-10 Al Hydroxide/Mg Hydroxide (Magnesium Hydrox/Alum Hydrox 30 Ml Oral.Susp) 30 ml PO Q6H PRN PRN Reason: Heartburn/Nausea Clobazam (Clobazam 10 Mg Tablet) 10 mg PO BID [facility] Last Admin: 04/30/25 08:18 Dose: 10 mg Clonazepam (Clonazepam 1 Mg Tablet) 1 mg PO DAILY@1700 [facility] Clonazepam (Clonazepam 0.5 Mg Tablet) 0.5 mg PO DAILY [facility] Last Admin: 04/30/25 08:18 Dose: 0.5 mg Fluvoxamine Maleate (Fluvoxamine Maleate 50 Mg Tablet) 100 mg PO BEDTIME [facility] Last Admin: 04/29/25 21:26 Dose: 100 mg Folic Acid (Folic Acid 1 Mg Tablet) 1 mg PO DAILY [facility] Last Admin: 04/30/25 08:17 Dose: 1 mg Hydroxyzine HCl (Hydroxyzine Hcl 25 Mg Tablet) 25 mg PO Q6H PRN PRN Reason: mild anxiety Hydroxyzine HCl (Hydroxyzine Hcl 50 Mg Tablet) 50 mg PO TID [facility] Last Admin: 04/30/25 08:18 Dose: 50 mg Lacosamide (Lacosamide 100 Mg Tablet) 200 mg PO BID [facility] Last Admin: 04/30/25 08:17 Dose: 200 mg Lamotrigine 300 mg/ (Lamotrigine 50 mg) 350 mg PO BID [facility] Last Admin: 04/30/25 08:18 Dose: 350 mg Levetiracetam (Levetiracetam 500 Mg Tablet) 1,500 mg PO BID [facility] Last Admin: 04/30/25 08:19 Dose: 1,500 mg Magnesium Hydroxide (Milk Of Magnesia 30 Ml Oral.Susp) 30 ml PO DAILY PRN PRN Reason: Constipation Magnesium Oxide (Magnesium Oxide 400 Mg Tablet) 400 mg PO DAILY [facility] Last Admin: 04/30/25 08:18 Dose: 400 mg Nicotine (Nicotine 21 Mg Patch.Td24) 21 mg TRANSDERMA DAILY PRN PRN Reason: nicotine craving Nicotine Polacrilex (Nicotine Polacrilex 2 Mg Gum) 2 mg BUCCAL Q2H PRN PRN Reason: Nicotine Cravings Pt Own (Perampanel [ Fycompa] 6 Mg Tablet ) 6 mg PO BID [facility] Last Admin: 04/30/25 08:19 Dose: 6 mg Olanzapine (Olanzapine 5 Mg Tablet) 5 mg PO BID PRN PRN Reason: agitation Trazodone HCl (Trazodone Hcl 50 Mg Tablet) 50 mg PO BEDTIME MRX1 PRN PRN Reason: Insomnia Allergies Allergies Allergy/AdvReac Type Severity Reaction Status Date / Time divalproex sodium (From Allergy Unknown Unknown Verified 04/26/25 19:53 Depakote) lorazepam Allergy Unknown Unknown Verified 04/26/25 19:53 medroxyprogesterone (From Allergy Unknown Unknown Verified 04/26/25 19:53 Depo-Provera) phenytoin (From Dilantin) Allergy Unknown Unknown Verified 04/26/25 19:53 Assessment & Plan Assessment & Plan (1) Serotonin syndrome: Status: Acute Code(s): G90.81 - Serotonin syndrome (2) Epilepsy: Qualifiers: Epilepsy type: unspecified Intractability: not intractable Status epilepticus: without status epilepticus Qualified Code(s): G40.909 - Epilepsy, unspecified, not intractable, without status epilepticus Status: Acute Code(s): G40.909 - Epilepsy, unspecified, not intractable, without status epilepticus (3) Status post VNS (vagus nerve stimulator) placement: Status: Acute Code(s): Z96.89 - Presence of other specified functional implants (4) MDD (major depressive disorder): Status: Acute Code(s): F32.9 - Major depressive disorder, single episode, unspecified (5) Anxiety: Status: Acute Code(s): F41.9 - Anxiety disorder, unspecified (6) Cognitive impairment: Status: Acute Code(s): R41.89 - Other symptoms and signs involving cognitive functions and awareness Plan HPI: 44-year-old Cypriot speaking Cauc[place] female with a PMH for MDD, seizure disorder (s/p meningitis 2004) with implanted neurostimulator, presented to the ED with erratic behavior and agitation. Patient was discharged home from [facility], however, while in the car she became overly agitated and had trouble regulating her thoughts and emotions. Patient is very poor historian and not a reliable person for hx and treatment intake d/t current mental status. She was recently admitted to [facility] from 04-24 to 04-[address] of the head which was negative for acute findings. She had an EEG which was negative for seizure activity she also seen by a neurologist. They were recommendations to adjust her seizure medications, discontinue sertraline and hold her BuSpar. Patient experienced sz episode in the ED pod on 04/28 and again on the unit in the evening. Nursing reports that one of the MHC was taking to patient and then patient began to shake her arms, unable to communicate , and began to drool which happened very quick. It resolved before nursing arrived to the scene. Patient was a bit disoriented afterwards. Nurses able to confirm home meds with mom. Need to do collateral to get hx of psychiatric illness/dx and treatment. Patient is poor historian. Not sure at this point if she should be on medication floor to monitor sz activities as it was reported that after 2099 patient had another sz episode. Hospital course: 04/29: continue with all home meds. Nurses able to confirm med list with mother. Patient is on Sz precaution. 04/30 most likely patient is recovering from serotonin syndrome. Patient's mother reports that patient has been on Zoloft 200 mg for years; also on BuSpar 10 mg t.i.d.. On 04/18 outpatient provider added Luvox 100 mg to the Zoloft and BuSpar. On 04/19 provider lowered Zoloft to 100 mg but kept her on Luvox 100 mg and BuSpar, all of which she was on for another week. Pt then became agitated and delirious, excessively sweaty, shivering, had a tremor and developed diarrhea... Also frequency of partial seizures increased. Patient was brought to [facility] ED but then discharged after few hours in the same condition; her mother thus brought her to [place] ED. Shipping Lead Person discussed that combined history and presentation point to very likely patient had serotonin syndrome. Patient has been off Zoloft since coming to the ED; but she did get Luvox 100 mg. Patient's mother says she is definitely doing better and is probably a 6 or 7/10 (10 being patient has regular self). Shipping Lead Person discussed serotonin syndrome as well as discontinuation syndrome from abruptly stopping SSRIs; discussed treatment options with which mother and patient agreed. -patient burping continuously; mother reports this is chronic and patient has appointment with GI Formulation/clinical reasoning: Seems very likely that patient developed serotonin syndrome from being on high doses of 2 SSRIs and BuSpar at once. Patient is now recovering, though is still with some residual delirium. At baseline patient has some cognitive impairment. Will add clonazepam bedtime dose for few days to help mitigate symptoms; will then add Zoloft 25 mg to mitigate discontinuation syndrome. -ad writer can find no evidence for psychogenic, nonepileptic seizures. Plan 12B Discontinue Luvox; patient is recovering from serotonin syndrome Discontinued BuSpar and will not restart Add clonazepam 0.5 mg q.h.s. for 3 days Start Zoloft 25 mg on 05/03 (SS will have been fully resolved for several days; start Zoloft to avoid discontinuation syndrome) Continue home medications regimen (ad writer reviewed with mother and with prescription history) Patient educated on: diagnosis, medication risk/benefits and medical condition Informed Consent: understands, does not understand and further education needed Reason for continued inpatient stay Substantial Risk for: rapid decompensation Time Spent With Patient Time: Total time managing care of this patient today ____ minutes.
--- NOTE | 2025-04-30 13:46 | PC.NURSE ---
Pt's mother dropped off pt's black bracelet with magnet (for seizure activity). Per discussion with clinical coordinator Apryl Maxwell pt's bracelet stored in medication room. Dr. Rolle made aware. Awaiting orders for bracelet use.
[2025-04-30 20:00] VITALS: BP 122/63; PULSE 96; RESP 16; TEMP 36.5; O2SAT 98
[2025-05-01] MEDS: PERAMPANEL 6 MG 6 EACH PO ×2 (01:46→11:20)
--- NOTE | 2025-05-01 06:26 | PC.NURSE ---
Patient was quite nauseated earlier in the evening 04/30/25 until after midnight. She was mostly producing a lot of phlegm as she had only had a few bites of her dinner. Patient afebrile, denied shortness of breath or any physical pain. Vitals were taken and unremarkable. Patient was given prn Zofran with positive effect and was able to take her HS medications after 0100. She was able to sleep through the night and appeared to be in NAD.
[2025-05-01 08:48] VITALS: BP 116/80; PULSE 83; RESP 16; TEMP 37.6; O2SAT 97
--- NOTE | 2025-05-01 09:12 | P.PNPSI_ITS ---
Subjective Subjective Date of Service: 05/01/25 Reason For Visit: decomp w/ recent med changes. Agitated Subjective Notes: Section 12B Healthcare Proxy: Yes Interim History: Patient is disorganized with flight of ideas and confused. She is alert and oriented to person, place, and time. She reports dizziness. She is perseverative on seizures which she notes she has been experiencing multiple episodes before her menstrual cycle since she was in her 2nd year of college. She notes she has seizures yesterday and while taking her medications this morning. Per nursing, patient was dry heaving after she took her medications but did not vomit; no seizure noted. She has been taking her medications as prescribed. She currently denies SI/HI/AH/VH. She is in no acute distress at this time. Medication Compliance: Yes Side effects from medications: No Attending Groups: No Review of Systems Acute medical concerns: No seizures Review of Systems Review of Systems Cardio: reports dizziness Mental Status Exam Mental Status Exam Narrative: Appearance: Casually dressed, adequate hygiene, unkempt hair Behavior: Impulsive, talkative, calm and cooperative throughout the interview. Eye contact is appropriate, and there are no signs of psychomotor agitation or retardation Speech: Hyperverbal Thought process: Disorganized, tangential, flight of ideas, confused, self dialoguing, internally preoccupied, baseline cognitive impairment documented Thought content: Perseverative on seizure episodes Mood: Labile Affect: Blunted SI:denies HI:denies VH/AH:none Delusions: none Insight/judgment: Impaired insight and judgment Memory/cog: Alert, oriented x 3. grossly intact to conversational testing Diagnostics Vital Signs (24Hr): Vital Signs - 24 hr 04/30/25 20:00 05/01/25 08:48 Temperature 97.7 F 99.7 F Pulse Rate 96 83 Respiratory Rate 16 16 Blood Pressure 122/63 116/80 Pulse Oximetry 98 97 Oxygen Delivery Method Room Air Room Air BMI result Body Mass Index 26.2 Labs 04/26/25 20:54 04/26/25 20:54 Labs: Laboratory Results - last 48 hr 04/29/25 10:04 Urine Color [place] Urine Appearance Cloudy Urine pH 6.0 Ur Specific [place] >= 1.030 H Urine Protein 30 (1+) H Urine Glucose (UA) Negative Urine Ketones Trace Urine Blood Large (3+) H Urine Nitrite Negative Ur Leukocyte Esterase Trace H Urine RBC >20 H Urine WBC 11-20 H Ur Squamous Epith Cells >20 Urine Bacteria Trace Hyaline Casts 3-5 Urine Test NEGATIVE Medications Medications Current Medications Acetaminophen (Acetaminophen 325 Mg Tablet) 650 mg PO Q6H PRN PRN Reason: Headache/Pain, Scale 1-10 Al Hydroxide/Mg Hydroxide (Magnesium Hydrox/Alum Hydrox 30 Ml Oral.Susp) 30 ml PO Q6H PRN PRN Reason: Heartburn/Nausea Clobazam (Clobazam 10 Mg Tablet) 10 mg PO BID [facility] Last Admin: 05/01/25 08:57 Dose: 10 mg Clonazepam (Clonazepam 1 Mg Tablet) 1 mg PO DAILY@1700 [facility] Last Admin: 04/30/25 17:31 Dose: 1 mg Clonazepam (Clonazepam 0.5 Mg Tablet) 0.5 mg PO DAILY [facility] Last Admin: 05/01/25 08:51 Dose: 0.5 mg Clonazepam (Clonazepam 0.5 Mg Tablet) 0.5 mg PO BEDTIME [facility] Stop: 05/03/25 11:00 Last Admin: 05/01/25 01:14 Dose: 0.5 mg Folic Acid (Folic Acid 1 Mg Tablet) 1 mg PO DAILY [facility] Last Admin: 04/30/25 08:17 Dose: 1 mg Hydroxyzine HCl (Hydroxyzine Hcl 25 Mg Tablet) 25 mg PO Q6H PRN PRN Reason: mild anxiety Hydroxyzine HCl (Hydroxyzine Hcl 50 Mg Tablet) 50 mg PO TID [facility] Last Admin: 05/01/25 08:51 Dose: 50 mg Lacosamide (Lacosamide 100 Mg Tablet) 200 mg PO BID [facility] Last Admin: 05/01/25 08:57 Dose: 200 mg Lamotrigine 300 mg/ (Lamotrigine 50 mg) 350 mg PO BID [facility] Last Admin: 05/01/25 00:54 Dose: 350 mg Levetiracetam (Levetiracetam 500 Mg Tablet) 1,500 mg PO BID [facility] Last Admin: 05/01/25 08:54 Dose: 1,500 mg Magnesium Hydroxide (Milk Of Magnesia 30 Ml Oral.Susp) 30 ml PO DAILY PRN PRN Reason: Constipation Magnesium Oxide (Magnesium Oxide 400 Mg Tablet) 250 mg PO DAILY [facility] Nicotine (Nicotine 21 Mg Patch.Td24) 21 mg TRANSDERMA DAILY PRN PRN Reason: nicotine craving Nicotine Polacrilex (Nicotine Polacrilex 2 Mg Gum) 2 mg BUCCAL Q2H PRN PRN Reason: Nicotine Cravings Pt Own (Perampanel [ Fycompa] 6 Mg Tablet ) 6 mg PO BID [facility] Last Admin: 05/01/25 01:46 Dose: 6 mg Olanzapine (Olanzapine 5 Mg Tablet) 5 mg PO BID PRN PRN Reason: agitation Ondansetron HCl (Ondansetron Odt 4 Mg Tab.Rapdis) 4 mg TRANSLINGU Q6H PRN PRN Reason: Nausea and Vomiting Last Admin: 04/30/25 23:24 Dose: 4 mg Sertraline HCl (Sertraline Hcl 25 Mg Tablet) 25 mg PO DAILY [facility] Trazodone HCl (Trazodone Hcl 50 Mg Tablet) 50 mg PO BEDTIME MRX1 PRN PRN Reason: Insomnia Last Admin: 05/01/25 01:05 Dose: 50 mg Allergies Allergies Allergy/AdvReac Type Severity Reaction Status Date / Time divalproex sodium (From Allergy Unknown Unknown Verified 04/26/25 19:53 Depakote) lorazepam Allergy Unknown Unknown Verified 04/26/25 19:53 medroxyprogesterone (From Allergy Unknown Unknown Verified 04/26/25 19:53 Depo-Provera) phenytoin (From Dilantin) Allergy Unknown Unknown Verified 04/26/25 19:53 Assessment & Plan Assessment & Plan (1) Serotonin syndrome: Status: Acute Code(s): G90.81 - Serotonin syndrome (2) Epilepsy: Qualifiers: Epilepsy type: unspecified Intractability: not intractable Status epilepticus: without status epilepticus Qualified Code(s): G40.909 - Epilepsy, unspecified, not intractable, without status epilepticus Status: Acute Code(s): G40.909 - Epilepsy, unspecified, not intractable, without status epilepticus (3) Status post VNS (vagus nerve stimulator) placement: Status: Acute Code(s): Z96.89 - Presence of other specified functional implants (4) MDD (major depressive disorder): Status: Acute Code(s): F32.9 - Major depressive disorder, single episode, unspecified (5) Anxiety: Status: Acute Code(s): F41.9 - Anxiety disorder, unspecified (6) Cognitive impairment: Status: Acute Code(s): R41.89 - Other symptoms and signs involving cognitive functions and awareness Plan HPI: 44-year-old Czech speaking Cauc[place] female with a PMH for MDD, seizure disorder (s/p meningitis 2003) with implanted neurostimulator, presented to the ED with erratic behavior and agitation. Patient was discharged home from [facility], however, while in the car she became overly agitated and had trouble regulating her thoughts and emotions. Patient is very poor historian and not a reliable person for hx and treatment intake d/t current mental status. She was recently admitted to [facility] from 04-24 to 04-[address] of the head which was negative for acute findings. She had an EEG which was negative for seizure activity she also seen by a neurologist. They were recommendations to adjust her seizure medications, discontinue sertraline and hold her BuSpar. Patient experienced sz episode in the ED pod on 04/28 and again on the unit in the evening. Nursing reports that one of the MHC was taking to patient and then patient began to shake her arms, unable to communicate , and began to drool which happened very quick. It resolved before nursing arrived to the scene. Patient was a bit disoriented afterwards. Nurses able to confirm home meds with mom. Need to do collateral to get hx of psychiatric illness/dx and treatment. Patient is poor historian. Not sure at this point if she should be on medication floor to monitor sz activities as it was reported that after 2099 patient had another sz episode. Hospital course: 04/29: continue with all home meds. Nurses able to confirm med list with mother. Patient is on Sz precaution. 04/30 most likely patient is recovering from serotonin syndrome. Patient's mother reports that patient has been on Zoloft 200 mg for years; also on BuSpar 10 mg t.i.d.. On 04/18 outpatient provider added Luvox 100 mg to the Zoloft and BuSpar. On 04/19 provider lowered Zoloft to 100 mg but kept her on Luvox 100 mg and BuSpar, all of which she was on for another week. Pt then became agitated and delirious, excessively sweaty, shivering, had a tremor and developed diarrhea... Also frequency of partial seizures increased. Patient was brought to [facility] ED but then discharged after few hours in the same condition; her mother thus brought her to [place] ED. Medical Economics Consultant discussed that combined history and presentation point to very likely patient had serotonin syndrome. Patient has been off Zoloft since coming to the ED; but she did get Luvox 100 mg. Patient's mother says she is definitely doing better and is probably a 6 or 7/10 (10 being patient has regular self). Medical Economics Consultant discussed serotonin syndrome as well as discontinuation syndrome from abruptly stopping SSRIs; discussed treatment options with which mother and patient agreed. -patient burping continuously; mother reports this is chronic and patient has appointment with GI Formulation/clinical reasoning: Seems very likely that patient developed serotonin syndrome from being on high doses of 2 SSRIs and BuSpar at once. Patient is now recovering, though is still with some residual delirium. At baseline patient has some cognitive impairment. Will add clonazepam bedtime dose for few days to help mitigate symptoms; will then add Zoloft 25 mg to mitigate discontinuation syndrome. -service writer advisor can find no evidence for psychogenic, nonepileptic seizures. 05/01: Patient continues to be disorganized. She also continues to express seizure episodes. No recent seizure episode witnessed by staff/nursing. Current working diagnosis is serotonin syndrome. Continue current treatment regimen. Plan to restart Zoloft but a low dose, 25 mg on 05/03 to avoid discontinuation syndrome. Patient's 3 day notice will tomorrow. She likely needs continued treatment after tomorrow; however, she does not have the capacity to signed a CV at this time. Per patient's social staff worker, patient's mom is her HCP. bulb farmworker to obtain HCP documentation from patient's mom so it can be invoked. Plan 12B Discontinue Luvox; patient is recovering from serotonin syndrome Discontinued BuSpar and will not restart Add clonazepam 0.5 mg q.h.s. for 3 days Start Zoloft 25 mg on 05/03 (SS will have been fully resolved for several days; start Zoloft to avoid discontinuation syndrome) Continue home medications regimen (service writer advisor reviewed with mother and with prescription history) Patient educated on: therapeutic strategies Reason for continued inpatient stay Substantial Risk for: rapid decompensation Time Spent With Patient Time: Total time managing care of this patient today ____ minutes.
[2025-05-01 20:00] VITALS: BP 125/74; PULSE 89; RESP 18; TEMP 37.3; O2SAT 97
--- NOTE | 2025-05-02 09:11 | P.PNPSI_ITS ---
Subjective Subjective Date of Service: 05/02/25 Reason For Visit: decomp w/ recent med changes. Agitated Subjective Notes: Conditional Voluntary Healthcare Proxy: Yes Medical Problems Affecting Mental Status: Yes Interim History: Patient notes that she feels depressed regarding being home and not able to do what she used to do. She is anxious about going home to her mom and daughter. She states I don't feel good at all, mornings are always worse, states her head feels extremely dizzy. She admits to adequate sleep. She notes that she does not recall the last time she had a seizure. No recent seizure reported by nursing. She denies SI/HI/AH/VH. She is in no acute distress at this time. Medication Compliance: Yes Side effects from medications: No Review of Systems Acute medical concerns: Yes Dizziness Review of Systems Review of Systems Cardio: Reports dizziness Mental Status Exam Mental Status Exam Narrative: Appearance: Casually dressed, adequate hygiene, unkempt hair Behavior: Impulsive, talkative, calm and cooperative throughout the interview. Eye contact is appropriate, and there are no signs of psychomotor agitation or retardation Speech: Hyperverbal Thought process: Disorganized, tangential, flight of ideas, confused, self dialoguing, internally preoccupied, baseline cognitive impairment documented, She is a bit clear and organized today Thought content: Perseverative on seizure episodes Mood: depressed Affect: Blunted SI:denies HI:denies VH/AH:none Delusions: none Insight/judgment: Impaired insight and judgment Memory/cog: Alert, oriented x 3. grossly intact to conversational testing Diagnostics Vital Signs (24Hr): Vital Signs - 24 hr 05/01/25 20:00 Temperature 99.2 F Pulse Rate 89 Respiratory Rate 18 Blood Pressure 125/74 Pulse Oximetry 97 Oxygen Delivery Method Room Air BMI result Body Mass Index 26.2 Labs 04/26/25 20:54 04/26/25 20:54 Medications Medications Current Medications Acetaminophen (Acetaminophen 325 Mg Tablet) 650 mg PO Q6H PRN PRN Reason: Headache/Pain, Scale 1-10 Last Admin: 05/01/25 17:00 Dose: 650 mg Al Hydroxide/Mg Hydroxide (Magnesium Hydrox/Alum Hydrox 30 Ml Oral.Susp) 30 ml PO Q6H PRN PRN Reason: Heartburn/Nausea Clobazam (Clobazam 10 Mg Tablet) 10 mg PO BID [facility] Last Admin: 05/01/25 22:13 Dose: 10 mg Clonazepam (Clonazepam 1 Mg Tablet) 1 mg PO DAILY@1700 [facility] Last Admin: 05/01/25 16:54 Dose: 1 mg Clonazepam (Clonazepam 0.5 Mg Tablet) 0.5 mg PO DAILY [facility] Last Admin: 05/01/25 08:51 Dose: 0.5 mg Clonazepam (Clonazepam 0.5 Mg Tablet) 0.5 mg PO BEDTIME [facility] Stop: 05/03/25 11:00 Last Admin: 05/01/25 22:13 Dose: 0.5 mg Folic Acid (Folic Acid 1 Mg Tablet) 1 mg PO DAILY [facility] Last Admin: 05/01/25 10:55 Dose: 1 mg Hydroxyzine HCl (Hydroxyzine Hcl 25 Mg Tablet) 25 mg PO Q6H PRN PRN Reason: mild anxiety Hydroxyzine HCl (Hydroxyzine Hcl 50 Mg Tablet) 50 mg PO TID [facility] Last Admin: 05/01/25 22:13 Dose: 50 mg Lacosamide (Lacosamide 100 Mg Tablet) 200 mg PO BID [facility] Last Admin: 05/01/25 22:12 Dose: 200 mg Lamotrigine 300 mg/ (Lamotrigine 50 mg) 350 mg PO BID [facility] Last Admin: 05/01/25 22:12 Dose: 350 mg Levetiracetam (Levetiracetam 500 Mg Tablet) 1,500 mg PO BID [facility] Last Admin: 05/01/25 22:12 Dose: 1,500 mg Magnesium Hydroxide (Milk Of Magnesia 30 Ml Oral.Susp) 30 ml PO DAILY PRN PRN Reason: Constipation Magnesium Oxide (Magnesium Oxide 400 Mg Tablet) 400 mg PO DAILY [facility] Last Admin: 05/01/25 11:20 Dose: 400 mg Nicotine (Nicotine 21 Mg Patch.Td24) 21 mg TRANSDERMA DAILY PRN PRN Reason: nicotine craving Nicotine Polacrilex (Nicotine Polacrilex 2 Mg Gum) 2 mg BUCCAL Q2H PRN PRN Reason: Nicotine Cravings Pt Own (Perampanel [ Fycompa] 6 Mg Tablet ) 6 mg PO BID [facility] Olanzapine (Olanzapine 5 Mg Tablet) 5 mg PO BID PRN PRN Reason: agitation Ondansetron HCl (Ondansetron Odt 4 Mg Tab.Rapdis) 4 mg TRANSLINGU Q6H PRN PRN Reason: Nausea and Vomiting Last Admin: 04/30/25 23:24 Dose: 4 mg Sertraline HCl (Sertraline Hcl 25 Mg Tablet) 25 mg PO DAILY [facility] Trazodone HCl (Trazodone Hcl 50 Mg Tablet) 50 mg PO BEDTIME MRX1 PRN PRN Reason: Insomnia Last Admin: 05/01/25 01:05 Dose: 50 mg Allergies Allergies Allergy/AdvReac Type Severity Reaction Status Date / Time divalproex sodium (From Allergy Unknown Unknown Verified 04/26/25 19:53 Depakote) lorazepam Allergy Unknown Unknown Verified 04/26/25 19:53 medroxyprogesterone (From Allergy Unknown Unknown Verified 04/26/25 19:53 Depo-Provera) phenytoin (From Dilantin) Allergy Unknown Unknown Verified 04/26/25 19:53 Assessment & Plan Assessment & Plan (1) Serotonin syndrome: Status: Acute Code(s): G90.81 - Serotonin syndrome (2) Epilepsy: Qualifiers: Epilepsy type: unspecified Intractability: not intractable Status epilepticus: without status epilepticus Qualified Code(s): G40.909 - Epilepsy, unspecified, not intractable, without status epilepticus Status: Acute Code(s): G40.909 - Epilepsy, unspecified, not intractable, without status epilepticus (3) Status post VNS (vagus nerve stimulator) placement: Status: Acute Code(s): Z96.89 - Presence of other specified functional implants (4) MDD (major depressive disorder): Status: Acute Code(s): F32.9 - Major depressive disorder, single episode, unspecified (5) Anxiety: Status: Acute Code(s): F41.9 - Anxiety disorder, unspecified (6) Cognitive impairment: Status: Acute Code(s): R41.89 - Other symptoms and signs involving cognitive functions and awareness Plan HPI: 44-year-old Ivorian speaking Cauc[place] female with a PMH for MDD, seizure disorder (s/p meningitis 2003) with implanted neurostimulator, presented to the ED with erratic behavior and agitation. Patient was discharged home from [facility], however, while in the car she became overly agitated and had trouble regulating her thoughts and emotions. Patient is very poor historian and not a reliable person for hx and treatment intake d/t current mental status. She was recently admitted to [facility] from 04-24 to 04-[address] of the head which was negative for acute findings. She had an EEG which was negative for seizure activity she also seen by a neurologist. They were recommendations to adjust her seizure medications, discontinue sertraline and hold her BuSpar. Patient experienced sz episode in the ED pod on 04/28 and again on the unit in the evening. Nursing reports that one of the MHC was taking to patient and then patient began to shake her arms, unable to communicate , and began to drool which happened very quick. It resolved before nursing arrived to the scene. Patient was a bit disoriented afterwards. Nurses able to confirm home meds with mom. Need to do collateral to get hx of psychiatric illness/dx and treatment. Patient is poor historian. Not sure at this point if she should be on medication floor to monitor sz activities as it was reported that after 2099 patient had another sz episode. Hospital course: 04/29: continue with all home meds. Nurses able to confirm med list with mother. Patient is on Sz precaution. 04/30 most likely patient is recovering from serotonin syndrome. Patient's mother reports that patient has been on Zoloft 200 mg for years; also on BuSpar 10 mg t.i.d.. On 04/18 outpatient provider added Luvox 100 mg to the Zoloft and BuSpar. On 04/19 provider lowered Zoloft to 100 mg but kept her on Luvox 100 mg and BuSpar, all of which she was on for another week. Pt then became agitated and delirious, excessively sweaty, shivering, had a tremor and developed diarrhea... Also frequency of partial seizures increased. Patient was brought to [facility] ED but then discharged after few hours in the same condition; her mother thus brought her to [place] ED. Membership Correspondent discussed that combined history and presentation point to very likely patient had serotonin syndrome. Patient has been off Zoloft since coming to the ED; but she did get Luvox 100 mg. Patient's mother says she is definitely doing better and is probably a 6 or 7/10 (10 being patient has regular self). Membership Correspondent discussed serotonin syndrome as well as discontinuation syndrome from abruptly stopping SSRIs; discussed treatment options with which mother and patient agreed. -patient burping continuously; mother reports this is chronic and patient has appointment with GI Formulation/clinical reasoning: Seems very likely that patient developed serotonin syndrome from being on high doses of 2 SSRIs and BuSpar at once. Patient is now recovering, though is still with some residual delirium. At baseline patient has some cognitive impairment. Will add clonazepam bedtime dose for few days to help mitigate symptoms; will then add Zoloft 25 mg to mitigate discontinuation syndrome. -proposal lead writer can find no evidence for psychogenic, nonepileptic seizures. 05/01: Patient continues to be disorganized. She also continues to express seizure episodes. No recent seizure episode witnessed by staff/nursing. Current working diagnosis is serotonin syndrome. Continue current treatment regimen. Plan to restart Zoloft but a low dose, 25 mg on 05/03 to avoid discontinuation syndrome. Patient's 3 day notice will tomorrow. She likely needs continued treatment after tomorrow; however, she does not have the capacity to signed a CV at this time. Per patient's school social worker, patient's mom is her HCP. venetian blind worker to obtain HCP documentation from patient's mom so it can be invoked. 05/02: Patient is alert oriented x3. Disorganized but a bit more clear and organized today. Notes situational anxiety and depression. Reports dizziness which is worse in the morning. Denies SI/HI/AH. Vital signs stable. Continue current treatment regimen. At this time, patient does not have the capacity to make or communicate informed health care decision, therefore, Healthcare proxy invoked by this provider today. Her mother is her healthcare proxy. HCP and signed CV in patient's paper chart. Plan 12B Discontinue Luvox; patient is recovering from serotonin syndrome Discontinued BuSpar and will not restart Add clonazepam 0.5 mg q.h.s. for 3 days Start Zoloft 25 mg on 05/03 (SS will have been fully resolved for several days; start Zoloft to avoid discontinuation syndrome) Continue home medications regimen (proposal lead writer reviewed with mother and with prescription history) Patient educated on: therapeutic strategies Reason for continued inpatient stay Substantial Risk for: rapid decompensation Time Spent With Patient Time: Total time managing care of this patient today ____ minutes.
--- NOTE | 2025-05-02 14:18 | HO.HCP_ITS ---
Health Care Proxy Invocation Health Care Proxy Declaration: I, ___Deniz Turner, HNP , on the date cited below, have determined that, Char Villa , lacks the capacity to make or communicate, informed health care decision. This determination is made in accordance with accepted standards of medical judgment and pursuant to [place] c. 201[place], the [place] Health Care Proxy Law. The cause, nature, extent and probable duration of the patient's inapacity are described below: Cause: Medical/psychiatric illness Nature: Char does not have the capacity to make or communicate informed health care decision Extent: Severe Probable Duration of Patient's Incapacity: Unknown
[2025-05-02 20:00] VITALS: BP 157/109; PULSE 98; RESP 20; TEMP 36.9; O2SAT 97
[2025-05-03 08:00] VITALS: BP 130/85; PULSE 99; RESP 16; TEMP 36.4; O2SAT 98
[2025-05-03] MEDS: PERAMPANEL 6 MG 6 EACH PO ×2 (09:27→21:20)
--- NOTE | 2025-05-03 12:04 | P.PNPSI_ITS ---
Subjective Subjective Date of Service: 05/03/25 Reason For Visit: decomp w/ recent med changes. Agitated Subjective Notes: Conditional Voluntary Healthcare Proxy: Yes Guardianship: No Medical Problems Affecting Mental Status: Yes (seizure disorder) Interim History: Team reports pt is improving. 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 Expressed grief over the loss of her career, independence and medical constrictions. Refers often to her mother when questioned and refers questions to her mother. Plans family visit this afternoon, plans a shower, and I need to go to more groups I think . Medication Compliance: Yes Side effects from medications: No Attending Groups: Intermittent Review of Systems Acute medical concerns: Yes seizure disorder Review of Systems Review of Systems as noted Mental Status Exam Mental Status Exam Patient Appearance: Fatigued and Appropriate Patient Orientation: Person, Place, Time and Situation Level of Consciousness: Alert Patient Behavior: Talkative, Timid, Restless, Anxious, Fatigued, Distractible and Good Eye Contact Mood Description: Labile Affect Description: Labile Patient Cognition Impaired: No Ability to Follow Directions: Good Speech Pattern: Spontaneous Speech Memory Description: Episodic Impaired Hallucinations: None Delusions: Not Present Perceptual Disturbances: Depersonalization and Derealization Thought Process: Rumination and Goal Oriented Thought Content: positive for Circumstantial, positive for Goal Oriented, positive for Perseveration and positive for Suicidal Ideation (denies) Depressive Symptoms: Thoughts of /Suicide (denies) Judgement: Fair Diagnostics Vital Signs (24Hr): Vital Signs - 24 hr 05/02/25 20:00 05/03/25 08:00 Temperature 98.4 F 97.6 F Pulse Rate 98 99 Respiratory Rate 20 16 Blood Pressure 157/109 H 130/85 Pulse Oximetry 97 98 Oxygen Delivery Method Room Air BMI result Body Mass Index 26.2 Labs 04/26/25 20:54 04/26/25 20:54 Medications Medications Current Medications Acetaminophen (Acetaminophen 325 Mg Tablet) 650 mg PO Q6H PRN PRN Reason: Headache/Pain, Scale 1-10 Last Admin: 05/01/25 17:00 Dose: 650 mg Al Hydroxide/Mg Hydroxide (Magnesium Hydrox/Alum Hydrox 30 Ml Oral.Susp) 30 ml PO Q6H PRN PRN Reason: Heartburn/Nausea Clobazam (Clobazam 10 Mg Tablet) 10 mg PO BID [facility] Last Admin: 05/03/25 09:28 Dose: 10 mg Clonazepam (Clonazepam 1 Mg Tablet) 1 mg PO DAILY@1700 [facility] Last Admin: 05/02/25 17:31 Dose: 1 mg Clonazepam (Clonazepam 0.5 Mg Tablet) 0.5 mg PO DAILY [facility] Last Admin: 05/03/25 09:28 Dose: 0.5 mg Folic Acid (Folic Acid 1 Mg Tablet) 1 mg PO DAILY [facility] Last Admin: 05/03/25 09:28 Dose: 1 mg Hydroxyzine HCl (Hydroxyzine Hcl 25 Mg Tablet) 25 mg PO Q6H PRN PRN Reason: mild anxiety Hydroxyzine HCl (Hydroxyzine Hcl 50 Mg Tablet) 50 mg PO TID [facility] Last Admin: 05/03/25 09:29 Dose: 50 mg Lacosamide (Lacosamide 100 Mg Tablet) 200 mg PO BID [facility] Last Admin: 05/03/25 09:29 Dose: 200 mg Lamotrigine 300 mg/ (Lamotrigine 50 mg) 350 mg PO BID [facility] Last Admin: 05/03/25 09:28 Dose: 350 mg Levetiracetam (Levetiracetam 500 Mg Tablet) 1,500 mg PO BID [facility] Last Admin: 05/03/25 09:28 Dose: 1,500 mg Magnesium Hydroxide (Milk Of Magnesia 30 Ml Oral.Susp) 30 ml PO DAILY PRN PRN Reason: Constipation Magnesium Oxide (Magnesium Oxide 400 Mg Tablet) 400 mg PO DAILY [facility] Last Admin: 05/03/25 09:28 Dose: 400 mg Nicotine (Nicotine 21 Mg Patch.Td24) 21 mg TRANSDERMA DAILY PRN PRN Reason: nicotine craving Nicotine Polacrilex (Nicotine Polacrilex 2 Mg Gum) 2 mg BUCCAL Q2H PRN PRN Reason: Nicotine Cravings Pt Own (Perampanel [ Fycompa] 6 Mg Tablet ) 6 mg PO BID [facility] Last Admin: 05/03/25 09:27 Dose: 6 mg Olanzapine (Olanzapine 5 Mg Tablet) 5 mg PO BID PRN PRN Reason: agitation Ondansetron HCl (Ondansetron Odt 4 Mg Tab.Rapdis) 4 mg TRANSLINGU Q6H PRN PRN Reason: Nausea and Vomiting Last Admin: 04/30/25 23:24 Dose: 4 mg Sertraline HCl (Sertraline Hcl 25 Mg Tablet) 25 mg PO DAILY [facility] Last Admin: 05/03/25 09:28 Dose: 25 mg Trazodone HCl (Trazodone Hcl 50 Mg Tablet) 50 mg PO BEDTIME MRX1 PRN PRN Reason: Insomnia Last Admin: 05/01/25 01:05 Dose: 50 mg Allergies Allergies Allergy/AdvReac Type Severity Reaction Status Date / Time divalproex sodium (From Allergy Unknown Unknown Verified 04/26/25 19:53 Depakote) lorazepam Allergy Unknown Unknown Verified 04/26/25 19:53 medroxyprogesterone (From Allergy Unknown Unknown Verified 04/26/25 19:53 Depo-Provera) phenytoin (From Dilantin) Allergy Unknown Unknown Verified 04/26/25 19:53 Assessment & Plan Assessment & Plan (1) Serotonin syndrome: Status: Acute Code(s): G90.81 - Serotonin syndrome (2) Epilepsy: Qualifiers: Epilepsy type: unspecified Intractability: not intractable Status epilepticus: without status epilepticus Qualified Code(s): G40.909 - Epilepsy, unspecified, not intractable, without status epilepticus Status: Acute Code(s): G40.909 - Epilepsy, unspecified, not intractable, without status epilepticus (3) Status post VNS (vagus nerve stimulator) placement: Status: Acute Code(s): Z96.89 - Presence of other specified functional implants (4) MDD (major depressive disorder): Status: Acute Code(s): F32.9 - Major depressive disorder, single episode, unspecified (5) Anxiety: Status: Acute Code(s): F41.9 - Anxiety disorder, unspecified (6) Cognitive impairment: Status: Acute Code(s): R41.89 - Other symptoms and signs involving cognitive functions and awareness Plan HPI: 44-year-old Nepalese speaking Caucasia female with a PMH for MDD, seizure disorder (s/p meningitis 2003) with implanted neurostimulator, presented to the ED with erratic behavior and agitation. Patient was discharged home from [facility], however, while in the car she became overly agitated and had trouble regulating her thoughts and emotions. Patient is very poor historian and not a reliable person for hx and treatment intake d/t current mental status. She was recently admitted to [facility] from 04-24 to 04-[address] of the head which was negative for acute findings. She had an EEG which was negative for seizure activity she also seen by a neurologist. They were recommendations to adjust her seizure medications, discontinue sertraline and hold her BuSpar. Patient experienced sz episode in the ED pod on 04/28 and again on the unit in the evening. Nursing reports that one of the MHC was taking to patient and then patient began to shake her arms, unable to communicate , and began to drool which happened very quick. It resolved before nursing arrived to the scene. Patient was a bit disoriented afterwards. Nurses able to confirm home meds with mom. Need to do collateral to get hx of psychiatric illness/dx and treatment. Patient is poor historian. Not sure at this point if she should be on medication floor to monitor sz activities as it was reported that after 2099 patient had another sz episode. Hospital course: 04/29: continue with all home meds. Nurses able to confirm med list with mother. Patient is on Sz precaution. 04/30 most likely patient is recovering from serotonin syndrome. Patient's mother reports that patient has been on Zoloft 200 mg for years; also on BuSpar 10 mg t.i.d.. On 04/18 outpatient provider added Luvox 100 mg to the Zoloft and BuSpar. On 04/19 provider lowered Zoloft to 100 mg but kept her on Luvox 100 mg and BuSpar, all of which she was on for another week. Pt then became agitated and delirious, excessively sweaty, shivering, had a tremor and developed diarrhea... Also frequency of partial seizures increased. Patient was brought to [facility] ED but then discharged after few hours in the same condition; her mother thus brought her to [place] ED. Weight Analyst discussed that combined history and presentation point to very likely patient had serotonin syndrome. Patient has been off Zoloft since coming to the ED; but she did get Luvox 100 mg. Patient's mother says she is definitely doing better and is probably a 6 or 7/10 (10 being patient has regular self). Weight Analyst discussed serotonin syndrome as well as discontinuation syndrome from abruptly stopping SSRIs; discussed treatment options with which mother and patient agreed. -patient burping continuously; mother reports this is chronic and patient has appointment with GI Formulation/clinical reasoning: Seems very likely that patient developed serotonin syndrome from being on high doses of 2 SSRIs and BuSpar at once. Patient is now recovering, though is still with some residual delirium. At baseline patient has some cognitive impairment. Will add clonazepam bedtime dose for few days to help mitigate symptoms; will then add Zoloft 25 mg to mitigate discontinuation syndrome. -brief writer can find no evidence for psychogenic, nonepileptic seizures. 05/01: Patient continues to be disorganized. She also continues to express seizure episodes. No recent seizure episode witnessed by staff/nursing. Current working diagnosis is serotonin syndrome. Continue current treatment regimen. Plan to restart Zoloft but a low dose, 25 mg on 05/03 to avoid discontinuation syndrome. Patient's 3 day notice will tomorrow. She likely needs continued treatment after tomorrow; however, she does not have the capacity to signed a CV at this time. Per patient's social service director, patient's mom is her HCP. warehouse insulation worker to obtain HCP documentation from patient's mom so it can be invoked. 05/02: Patient is alert oriented x3. Disorganized but a bit more clear and organized today. Notes situational anxiety and depression. Reports dizziness which is worse in the morning. Denies SI/HI/AH. Vital signs stable. Continue current treatment regimen. At this time, patient does not have the capacity to make or communicate informed health care decision, therefore, Healthcare proxy invoked by this provider today. Her mother is her healthcare proxy. HCP and signed CV in patient's paper chart. 05/03: Team reports gradual steady improvement. Pt able to express her concerns, with some disorganization today. Responds to reality orientation, positive re- enforcement of her coping and attempting to work out issues. Some mild paranoia over peers. Grief over loss of profession and having to manage chronic medical issues. Continue tx Plan 12B Discontinue Luvox; patient is recovering from serotonin syndrome Discontinued BuSpar and will not restart Add clonazepam 0.5 mg q.h.s. for 3 days Start Zoloft 25 mg on 05/03 (SS will have been fully resolved for several days; start Zoloft to avoid discontinuation syndrome) Continue home medications regimen (brief writer reviewed with mother and with prescription history) Reason for continued inpatient stay Substantial Risk for: rapid decompensation Time Spent With Patient Time: Total time managing care of this patient today ____ minutes.
[2025-05-03 20:31] VITALS: BP 113/72; PULSE 85; RESP 18; TEMP 36.7; O2SAT 100
[2025-05-04 08:00] VITALS: BP 126/69; PULSE 102; TEMP 36.5; O2SAT 100
[2025-05-04] MEDS: PERAMPANEL 6 MG 6 EACH PO ×2 (08:43→21:15)
--- NOTE | 2025-05-04 17:09 | HO.PSYCHPN ---
Subjective Subjective Date of Service: 05/04/25 Reason For Visit: decomp w/ recent med changes. Agitated Subjective Notes: Conditional Voluntary (by HCP) Healthcare Proxy: Yes Medical Problems Affecting Mental Status: No Interim History: Medical record and nursing notes reviewed; case discussed during rounds with team/nursing staff, and met with patient for supportive therapy/psychoeducation, as well as medication management. Patient is fully engaged in conversation, appear more organized and more coherence to the content being discussed compared to when this provider first met patient on admission. She does not remember if she has any seizure episode or when was the last time she has seizure. Report that she is not a big fan of breakfast and only ate protein bar this morning. Report high in anxiety but less depression. Patient would like to return home with her daughter only but now she stays with her mom and her daughter. Denies hallucinations but report sometimes she sees dots but assume it could be when I am anxious . Report that she only showered once since admitted. Would like to shower with cold water. Nursing is made aware to help patient with shower and make sure we have staff around when patient showers for safety concerns. Mom is her caregiver and usually help her with ADL's at home. Medication Compliance: Yes Side effects from medications: No Attending Groups: No Review of Systems Acute medical concerns: No Medical Review of Systems: unchanged Review of Systems Review of Systems as noted. On seizure precaution. Mental Status Exam Mental Status Exam Patient Appearance: Disheveled Patient Orientation: Person, Place, Time and Situation Level of Consciousness: Alert Patient Behavior: Talkative, Timid, Restless, Anxious, Distractible and Good Eye Contact Mood Description: Labile Affect Description: Anxious Patient Cognition Impaired: No Ability to Follow Directions: Good Speech Pattern: Spontaneous Speech Memory Description: Episodic Impaired Hallucinations: None Delusions: Not Present Perceptual Disturbances: Depersonalization and Derealization Thought Process: Rumination and Goal Oriented Thought Content: positive for Circumstantial, positive for Goal Oriented and positive for Suicidal Ideation (denies) Depressive Symptoms: Thoughts of /Suicide (denies) Judgement: Fair Diagnostics Vital Signs (24Hr): Vital Signs - 24 hr 05/03/25 20:31 05/04/25 08:00 Temperature 98.1 F 97.7 F Pulse Rate 85 102 H Respiratory Rate 18 Blood Pressure 113/72 126/69 Pulse Oximetry 100 100 Oxygen Delivery Method Room Air Room Air BMI result Body Mass Index 26.2 Labs 04/26/25 20:54 04/26/25 20:54 Medications Medications Current Medications Acetaminophen (Acetaminophen 325 Mg Tablet) 650 mg PO Q6H PRN PRN Reason: Headache/Pain, Scale 1-10 Last Admin: 05/01/25 17:00 Dose: 650 mg Al Hydroxide/Mg Hydroxide (Magnesium Hydrox/Alum Hydrox 30 Ml Oral.Susp) 30 ml PO Q6H PRN PRN Reason: Heartburn/Nausea Clobazam (Clobazam 10 Mg Tablet) 10 mg PO BID [facility] Last Admin: 05/04/25 08:42 Dose: 10 mg Clonazepam (Clonazepam 1 Mg Tablet) 1 mg PO DAILY@1700 [facility] Last Admin: 05/03/25 17:22 Dose: 1 mg Clonazepam (Clonazepam 0.5 Mg Tablet) 0.5 mg PO DAILY [facility] Last Admin: 05/04/25 08:42 Dose: 0.5 mg Folic Acid (Folic Acid 1 Mg Tablet) 1 mg PO DAILY [facility] Last Admin: 05/04/25 08:42 Dose: 1 mg Hydroxyzine HCl (Hydroxyzine Hcl 25 Mg Tablet) 25 mg PO Q6H PRN PRN Reason: mild anxiety Hydroxyzine HCl (Hydroxyzine Hcl 50 Mg Tablet) 50 mg PO TID [facility] Last Admin: 05/04/25 15:35 Dose: 50 mg Lacosamide (Lacosamide 100 Mg Tablet) 200 mg PO BID [facility] Last Admin: 05/04/25 08:43 Dose: 200 mg Lamotrigine 300 mg/ (Lamotrigine 50 mg) 350 mg PO BID [facility] Last Admin: 05/04/25 08:42 Dose: 350 mg Levetiracetam (Levetiracetam 500 Mg Tablet) 1,500 mg PO BID [facility] Last Admin: 05/04/25 08:42 Dose: 1,500 mg Magnesium Hydroxide (Milk Of Magnesia 30 Ml Oral.Susp) 30 ml PO DAILY PRN PRN Reason: Constipation Magnesium Oxide (Magnesium Oxide 400 Mg Tablet) 400 mg PO DAILY [facility] Last Admin: 05/04/25 08:43 Dose: 400 mg Nicotine (Nicotine 21 Mg Patch.Td24) 21 mg TRANSDERMA DAILY PRN PRN Reason: nicotine craving Nicotine Polacrilex (Nicotine Polacrilex 2 Mg Gum) 2 mg BUCCAL Q2H PRN PRN Reason: Nicotine Cravings Pt Own (Perampanel [ Fycompa] 6 Mg Tablet ) 6 mg PO BID [facility] Last Admin: 05/04/25 08:43 Dose: 6 mg Olanzapine (Olanzapine 5 Mg Tablet) 5 mg PO BID PRN PRN Reason: agitation Ondansetron HCl (Ondansetron Odt 4 Mg Tab.Rapdis) 4 mg TRANSLINGU Q6H PRN PRN Reason: Nausea and Vomiting Last Admin: 04/30/25 23:24 Dose: 4 mg Sertraline HCl (Sertraline Hcl 25 Mg Tablet) 25 mg PO DAILY [facility] Last Admin: 05/04/25 08:42 Dose: 25 mg Trazodone HCl (Trazodone Hcl 50 Mg Tablet) 50 mg PO BEDTIME MRX1 PRN PRN Reason: Insomnia Last Admin: 05/01/25 01:05 Dose: 50 mg Allergies Allergies Allergy/AdvReac Type Severity Reaction Status Date / Time divalproex sodium (From Allergy Unknown Unknown Verified 04/26/25 19:53 Depakote) lorazepam Allergy Unknown Unknown Verified 04/26/25 19:53 medroxyprogesterone (From Allergy Unknown Unknown Verified 04/26/25 19:53 Depo-Provera) phenytoin (From Dilantin) Allergy Unknown Unknown Verified 04/26/25 19:53 Assessment & Plan Assessment & Plan (1) Serotonin syndrome: Status: Acute Code(s): G90.81 - Serotonin syndrome (2) Epilepsy: Qualifiers: Epilepsy type: unspecified Intractability: not intractable Status epilepticus: without status epilepticus Qualified Code(s): G40.909 - Epilepsy, unspecified, not intractable, without status epilepticus Status: Acute Code(s): G40.909 - Epilepsy, unspecified, not intractable, without status epilepticus (3) Status post VNS (vagus nerve stimulator) placement: Status: Acute Code(s): Z96.89 - Presence of other specified functional implants (4) MDD (major depressive disorder): Status: Acute Code(s): F32.9 - Major depressive disorder, single episode, unspecified (5) Anxiety: Status: Acute Code(s): F41.9 - Anxiety disorder, unspecified (6) Cognitive impairment: Status: Acute Code(s): R41.89 - Other symptoms and signs involving cognitive functions and awareness Plan HPI: 44-year-old Japanese speaking Caucasia female with a PMH for MDD, seizure disorder (s/p meningitis 2003) with implanted neurostimulator, presented to the ED with erratic behavior and agitation. Patient was discharged home from [facility], however, while in the car she became overly agitated and had trouble regulating her thoughts and emotions. Patient is very poor historian and not a reliable person for hx and treatment intake d/t current mental status. She was recently admitted to [facility] from 04-24 to 04-[address] of the head which was negative for acute findings. She had an EEG which was negative for seizure activity she also seen by a neurologist. They were recommendations to adjust her seizure medications, discontinue sertraline and hold her BuSpar. Patient experienced sz episode in the ED pod on 04/28 and again on the unit in the evening. Nursing reports that one of the [facility] was taking to patient and then patient began to shake her arms, unable to communicate , and began to drool which happened very quick. It resolved before nursing arrived to the scene. Patient was a bit disoriented afterwards. Nurses able to confirm home meds with mom. Need to do collateral to get hx of psychiatric illness/dx and treatment. Patient is poor historian. Not sure at this point if she should be on medication floor to monitor sz activities as it was reported that after 2099 patient had another sz episode. Hospital course: 04/29: continue with all home meds. Nurses able to confirm med list with mother. Patient is on Sz precaution. 04/30 most likely patient is recovering from serotonin syndrome. Patient's mother reports that patient has been on Zoloft 200 mg for years; also on BuSpar 10 mg t.i.d.. On 04/18 outpatient provider added Luvox 100 mg to the Zoloft and BuSpar. On 04/19 provider lowered Zoloft to 100 mg but kept her on Luvox 100 mg and BuSpar, all of which she was on for another week. Pt then became agitated and delirious, excessively sweaty, shivering, had a tremor and developed diarrhea... Also frequency of partial seizures increased. Patient was brought to [facility] ED but then discharged after few hours in the same condition; her mother thus brought her to [place] ED. Corporate Sales Representative discussed that combined history and presentation point to very likely patient had serotonin syndrome. Patient has been off Zoloft since coming to the ED; but she did get Luvox 100 mg. Patient's mother says she is definitely doing better and is probably a 6 or 7/10 (10 being patient has regular self). Corporate Sales Representative discussed serotonin syndrome as well as discontinuation syndrome from abruptly stopping SSRIs; discussed treatment options with which mother and patient agreed. -patient burping continuously; mother reports this is chronic and patient has appointment with GI Formulation/clinical reasoning: Seems very likely that patient developed serotonin syndrome from being on high doses of 2 SSRIs and BuSpar at once. Patient is now recovering, though is still with some residual delirium. At baseline patient has some cognitive impairment. Will add clonazepam bedtime dose for few days to help mitigate symptoms; will then add Zoloft 25 mg to mitigate discontinuation syndrome. -fha underwriter can find no evidence for psychogenic, nonepileptic seizures. 05/01: Patient continues to be disorganized. She also continues to express seizure episodes. No recent seizure episode witnessed by staff/nursing. Current working diagnosis is serotonin syndrome. Continue current treatment regimen. Plan to restart Zoloft but a low dose, 25 mg on 05/03 to avoid discontinuation syndrome. Patient's 3 day notice will tomorrow. She likely needs continued treatment after tomorrow; however, she does not have the capacity to signed a CV at this time. Per patient's social sciences lecturer, patient's mom is her HCP. aids social worker to obtain HCP documentation from patient's mom so it can be invoked. 05/02: Patient is alert oriented x3. Disorganized but a bit more clear and organized today. Notes situational anxiety and depression. Reports dizziness which is worse in the morning. Denies SI/HI/AH. Vital signs stable. Continue current treatment regimen. At this time, patient does not have the capacity to make or communicate informed health care decision, therefore, Healthcare proxy invoked by this provider today. Her mother is her healthcare proxy. HCP and signed CV in patient's paper chart. 05/03: Team reports gradual steady improvement. Pt able to express her concerns, with some disorganization today. Responds to reality orientation, positive re-enforcement of her coping and attempting to work out issues. Some mild paranoia over peers. Grief over loss of profession and having to manage chronic medical issues. Continue tx 05/04/25: Patient is fully engaged in conversation, appear more organized and more coherence to the content being discussed compared to when this provider first met patient on admission. She does not remember if she has any seizure episode or when was the last time she has seizure. Report that she is not a big fan of breakfast and only ate protein bar this morning. Report high in anxiety but less depression. Patient would like to return home with her daughter only but now she stays with her mom and her daughter. Denies hallucinations but report sometimes she sees dots but assume it could be when I am anxious . Report that she only showered once since admitted. Would like to shower with cold water. Nursing is made aware to help patient with shower and make sure we have staff around when patient showers for safety concerns. Mom is her caregiver and usually help her with ADL's at home. Plan CV by HCP Discontinue Luvox; patient is recovering from serotonin syndrome Discontinued BuSpar and will not restart Add clonazepam 0.5 mg q.h.s. for 3 days Start Zoloft 25 mg on 05/03 (SS will have been fully resolved for several days; start Zoloft to avoid discontinuation syndrome) Continue home medications regimen (fha underwriter reviewed with mother and with prescription history) Patient educated on: diagnosis, medication risk/benefits and therapeutic strategies Informed Consent: understands and further education needed Reason for continued inpatient stay Substantial Risk for: med/psych decompensation Time Spent With Patient Time: Total time managing care of this patient today ____ minutes.
[2025-05-04 20:32] VITALS: BP 112/80; PULSE 96; RESP 16; TEMP 37.1; O2SAT 97
[2025-05-05 08:00] VITALS: BP 109/77; PULSE 85; TEMP 36.4; O2SAT 96
[2025-05-05] MEDS: PERAMPANEL 6 MG 6 EACH PO ×2 (08:20→22:01)
--- NOTE | 2025-05-05 19:01 | P.PNPSI_ITS ---
Subjective Subjective Date of Service: 05/05/25 Reason For Visit: decomp w/ recent med changes. Agitated Subjective Notes: Conditional Voluntary (by HCP) Healthcare Proxy: Yes Guardianship: No Medical Problems Affecting Mental Status: No Interim History: Medical record and nursing notes reviewed; case discussed during rounds with team/nursing staff, and met with patient for supportive therapy/psychoeducation, as well as medication management. Slept better than the night before, slightly improve in appetite, visible in the kitchen reading, have visit with mom. She is feeling like she is ready to go home, find some improving in mood but she is not sure as she thinks mom will know her better. Denies safety concerns, more organized, shower yesterday. No seizure activities, no irritability. Patient could be at her baseline. Medication Compliance: Yes Side effects from medications: No Attending Groups: No Review of Systems Acute medical concerns: No Medical Review of Systems: unchanged Review of Systems Review of Systems as noted. On seizure precaution. Yes all other systems are reviewed and are negative Mental Status Exam Mental Status Exam Patient Appearance: Appropriate Patient Orientation: Person, Place, Time and Situation Level of Consciousness: Alert Patient Behavior: Talkative, Timid, Anxious, Distractible and Good Eye Contact Mood Description: Appropriate Affect Description: Anxious Patient Cognition Impaired: No Ability to Follow Directions: Good Speech Pattern: Spontaneous Speech Memory Description: Episodic Impaired Hallucinations: None Delusions: Not Present Perceptual Disturbances: Depersonalization and Derealization Thought Process: Intact (improved), Incoherent and Goal Oriented Thought Content: positive for Circumstantial, positive for Goal Oriented and positive for Suicidal Ideation (denies) Depressive Symptoms: Thoughts of /Suicide (denies) Judgement: Fair Diagnostics Vital Signs (24Hr): Vital Signs - 24 hr 05/04/25 20:32 05/05/25 08:00 Temperature 98.8 F 97.5 F Pulse Rate 96 85 Respiratory Rate 16 Blood Pressure 112/80 109/77 Pulse Oximetry 97 96 Oxygen Delivery Method Room Air Room Air BMI result Body Mass Index 26.2 Labs 04/26/25 20:54 04/26/25 20:54 Medications Medications Current Medications Acetaminophen (Acetaminophen 325 Mg Tablet) 650 mg PO Q6H PRN PRN Reason: Headache/Pain, Scale 1-10 Last Admin: 05/01/25 17:00 Dose: 650 mg Al Hydroxide/Mg Hydroxide (Magnesium Hydrox/Alum Hydrox 30 Ml Oral.Susp) 30 ml PO Q6H PRN PRN Reason: Heartburn/Nausea Clobazam (Clobazam 10 Mg Tablet) 10 mg PO BID [facility] Last Admin: 05/05/25 08:19 Dose: 10 mg Clonazepam (Clonazepam 1 Mg Tablet) 1 mg PO DAILY@1700 [facility] Last Admin: 05/04/25 17:48 Dose: 1 mg Clonazepam (Clonazepam 0.5 Mg Tablet) 0.5 mg PO DAILY [facility] Last Admin: 05/05/25 08:20 Dose: 0.5 mg Folic Acid (Folic Acid 1 Mg Tablet) 1 mg PO DAILY [facility] Last Admin: 05/05/25 08:20 Dose: 1 mg Hydroxyzine HCl (Hydroxyzine Hcl 25 Mg Tablet) 25 mg PO Q6H PRN PRN Reason: mild anxiety Hydroxyzine HCl (Hydroxyzine Hcl 50 Mg Tablet) 50 mg PO TID [facility] Last Admin: 05/05/25 14:01 Dose: 50 mg Lacosamide (Lacosamide 100 Mg Tablet) 200 mg PO BID [facility] Last Admin: 05/05/25 08:19 Dose: 200 mg Lamotrigine 300 mg/ (Lamotrigine 50 mg) 350 mg PO BID [facility] Last Admin: 05/05/25 08:20 Dose: 350 mg Levetiracetam (Levetiracetam 500 Mg Tablet) 1,500 mg PO BID [facility] Last Admin: 05/05/25 08:20 Dose: 1,500 mg Magnesium Hydroxide (Milk Of Magnesia 30 Ml Oral.Susp) 30 ml PO DAILY PRN PRN Reason: Constipation Magnesium Oxide (Magnesium Oxide 400 Mg Tablet) 400 mg PO DAILY [facility] Last Admin: 05/05/25 08:19 Dose: 400 mg Nicotine (Nicotine 21 Mg Patch.Td24) 21 mg TRANSDERMA DAILY PRN PRN Reason: nicotine craving Nicotine Polacrilex (Nicotine Polacrilex 2 Mg Gum) 2 mg BUCCAL Q2H PRN PRN Reason: Nicotine Cravings Pt Own (Perampanel [ Fycompa] 6 Mg Tablet ) 6 mg PO BID [facility] Last Admin: 05/05/25 08:20 Dose: 6 mg Olanzapine (Olanzapine 5 Mg Tablet) 5 mg PO BID PRN PRN Reason: agitation Ondansetron HCl (Ondansetron Odt 4 Mg Tab.Rapdis) 4 mg TRANSLINGU Q6H PRN PRN Reason: Nausea and Vomiting Last Admin: 04/30/25 23:24 Dose: 4 mg Sertraline HCl (Sertraline Hcl 25 Mg Tablet) 25 mg PO DAILY [facility] Last Admin: 05/05/25 08:19 Dose: 25 mg Trazodone HCl (Trazodone Hcl 50 Mg Tablet) 50 mg PO BEDTIME MRX1 PRN PRN Reason: Insomnia Last Admin: 05/01/25 01:05 Dose: 50 mg Allergies Allergies Allergy/AdvReac Type Severity Reaction Status Date / Time divalproex sodium (From Allergy Unknown Unknown Verified 04/26/25 19:53 Depakote) lorazepam Allergy Unknown Unknown Verified 04/26/25 19:53 medroxyprogesterone (From Allergy Unknown Unknown Verified 04/26/25 19:53 Depo-Provera) phenytoin (From Dilantin) Allergy Unknown Unknown Verified 04/26/25 19:53 Assessment & Plan Assessment & Plan (1) Serotonin syndrome: Status: Acute Code(s): G90.81 - Serotonin syndrome (2) Epilepsy: Qualifiers: Epilepsy type: unspecified Intractability: not intractable Status epilepticus: without status epilepticus Qualified Code(s): G40.909 - Epilepsy, unspecified, not intractable, without status epilepticus Status: Acute Code(s): G40.909 - Epilepsy, unspecified, not intractable, without status epilepticus (3) Status post VNS (vagus nerve stimulator) placement: Status: Acute Code(s): Z96.89 - Presence of other specified functional implants (4) MDD (major depressive disorder): Status: Acute Code(s): F32.9 - Major depressive disorder, single episode, unspecified (5) Anxiety: Status: Acute Code(s): F41.9 - Anxiety disorder, unspecified (6) Cognitive impairment: Status: Acute Code(s): R41.89 - Other symptoms and signs involving cognitive functions and awareness Plan HPI: 44-year-old Maltese speaking Caucasia female with a PMH for MDD, seizure disorder (s/p meningitis 2003) with implanted neurostimulator, presented to the ED with erratic behavior and agitation. Patient was discharged home from [facility], however, while in the car she became overly agitated and had trouble regulating her thoughts and emotions. Patient is very poor historian and not a reliable person for hx and treatment intake d/t current mental status. She was recently admitted to [facility] from 04-24 to 04-[address] of the head which was negative for acute findings. She had an EEG which was negative for seizure activity she also seen by a neurologist. They were recommendations to adjust her seizure medications, discontinue sertraline and hold her BuSpar. Patient experienced sz episode in the ED pod on 04/28 and again on the unit in the evening. Nursing reports that one of the MHC was taking to patient and then patient began to shake her arms, unable to communicate , and began to drool which happened very quick. It resolved before nursing arrived to the scene. Patient was a bit disoriented afterwards. Nurses able to confirm home meds with mom. Need to do collateral to get hx of psychiatric illness/dx and treatment. Patient is poor historian. Not sure at this point if she should be on medication floor to monitor sz activities as it was reported that after 2099 patient had another sz episode. Hospital course: 04/29: continue with all home meds. Nurses able to confirm med list with mother. Patient is on Sz precaution. 04/30 most likely patient is recovering from serotonin syndrome. Patient's mother reports that patient has been on Zoloft 200 mg for years; also on BuSpar 10 mg t.i.d.. On 04/18 outpatient provider added Luvox 100 mg to the Zoloft and BuSpar. On 04/19 provider lowered Zoloft to 100 mg but kept her on Luvox 100 mg and BuSpar, all of which she was on for another week. Pt then became agitated and delirious, excessively sweaty, shivering, had a tremor and developed diarrhea... Also frequency of partial seizures increased. Patient was brought to [facility] ED but then discharged after few hours in the same condition; her mother thus brought her to [place] ED. Hyperion Developer discussed that combined history and presentation point to very likely patient had serotonin syndrome. Patient has been off Zoloft since coming to the ED; but she did get Luvox 100 mg. Patient's mother says she is definitely doing better and is probably a 6 or 7/10 (10 being patient has regular self). Hyperion Developer discussed serotonin syndrome as well as discontinuation syndrome from abruptly stopping SSRIs; discussed treatment options with which mother and patient agreed. -patient burping continuously; mother reports this is chronic and patient has appointment with GI Formulation/clinical reasoning: Seems very likely that patient developed serotonin syndrome from being on high doses of 2 SSRIs and BuSpar at once. Patient is now recovering, though is still with some residual delirium. At baseline patient has some cognitive impairment. Will add clonazepam bedtime dose for few days to help mitigate symptoms; will then add Zoloft 25 mg to mitigate discontinuation syndrome. -commercial underwriter can find no evidence for psychogenic, nonepileptic seizures. 05/01: Patient continues to be disorganized. She also continues to express seizure episodes. No recent seizure episode witnessed by staff/nursing. Current working diagnosis is serotonin syndrome. Continue current treatment regimen. Plan to restart Zoloft but a low dose, 25 mg on 05/03 to avoid discontinuation syndrome. Patient's 3 day notice will tomorrow. She likely needs continued treatment after tomorrow; however, she does not have the capacity to signed a CV at this time. Per patient's social media community manager, patient's mom is her HCP. hospital food service worker to obtain HCP documentation from patient's mom so it can be invoked. 05/02: Patient is alert oriented x3. Disorganized but a bit more clear and organized today. Notes situational anxiety and depression. Reports dizziness which is worse in the morning. Denies SI/HI/AH. Vital signs stable. Continue current treatment regimen. At this time, patient does not have the capacity to make or communicate informed health care decision, therefore, Healthcare proxy invoked by this provider today. Her mother is her healthcare proxy. HCP and signed CV in patient's paper chart. 05/03: Team reports gradual steady improvement. Pt able to express her concerns, with some disorganization today. Responds to reality orientation, positive re- enforcement of her coping and attempting to work out issues. Some mild paranoia over peers. Grief over loss of profession and having to manage chronic medical issues. Continue tx 05/04/25: Patient is fully engaged in conversation, appear more organized and more coherence to the content being discussed compared to when this provider first met patient on admission. She does not remember if she has any seizure episode or when was the last time she has seizure. Report that she is not a big fan of breakfast and only ate protein bar this morning. Report high in anxiety but less depression. Patient would like to return home with her daughter only but now she stays with her mom and her daughter. Denies hallucinations but report sometimes she sees dots but assume it could be when I am anxious . Report that she only showered once since admitted. Would like to shower with cold water. Nursing is made aware to help patient with shower and make sure we have staff around when patient showers for safety concerns. Mom is her caregiver and usually help her with ADL's at home. 05/05/25: Slept better than the night before, slightly improve in appetite, visible in the kitchen reading, have visit with mom. She is feeling like she is ready to go home, find some improving in mood but she is not sure as she thinks mom will know her better. Denies safety concerns, more organized, shower yesterday. No seizure activities, no irritability. Patient could be at her baseline. Plan CV by HCP Discontinue Luvox; patient is recovering from serotonin syndrome Discontinued BuSpar and will not restart Add clonazepam 0.5 mg q.h.s. for 3 days Start Zoloft 25 mg on 05/03 (SS will have been fully resolved for several days; start Zoloft to avoid discontinuation syndrome) Continue home medications regimen (commercial underwriter reviewed with mother and with prescription history) Patient educated on: diagnosis, medication risk/benefits and therapeutic strategies Informed Consent: understands and further education needed Reason for continued inpatient stay Substantial Risk for: med/psych decompensation Time Spent With Patient Time: Total time managing care of this patient today ____ minutes.
[2025-05-05 20:00] VITALS: BP 110/66; PULSE 87; RESP 16; TEMP 37.1; O2SAT 100
[2025-05-06 08:59] VITALS: BP 95/55; PULSE 80; RESP 18; TEMP 35.9; O2SAT 99
[2025-05-06] MEDS: PERAMPANEL 6 MG 6 EACH PO (09:17)
--- NOTE | 2025-05-06 09:21 | HO.PSYCHPN ---
Subjective Subjective Date of Service: 05/06/25 Reason For Visit: decomp w/ recent med changes. Agitated Interim History: Met with patient; discussed with team; reviewed chart Diagnostics Vital Signs (24Hr): Vital Signs - 24 hr 05/05/25 20:00 05/06/25 08:59 Temperature 98.8 F 96.6 F L Pulse Rate 87 80 Respiratory Rate 16 18 Blood Pressure 110/66 95/55 L Pulse Oximetry 100 99 Oxygen Delivery Method Room Air Room Air BMI result Body Mass Index 26.2 Labs 04/26/25 20:54 04/26/25 20:54 Medications Medications Current Medications Acetaminophen (Acetaminophen 325 Mg Tablet) 650 mg PO Q6H PRN PRN Reason: Headache/Pain, Scale 1-10 Last Admin: 05/01/25 17:00 Dose: 650 mg Al Hydroxide/Mg Hydroxide (Magnesium Hydrox/Alum Hydrox 30 Ml Oral.Susp) 30 ml PO Q6H PRN PRN Reason: Heartburn/Nausea Clobazam (Clobazam 10 Mg Tablet) 10 mg PO BID [facility] Last Admin: 05/06/25 09:03 Dose: 10 mg Clonazepam (Clonazepam 1 Mg Tablet) 1 mg PO DAILY@1700 [facility] Last Admin: 05/04/25 17:48 Dose: 1 mg Clonazepam (Clonazepam 0.5 Mg Tablet) 0.5 mg PO DAILY [facility] Last Admin: 05/06/25 09:03 Dose: 0.5 mg Folic Acid (Folic Acid 1 Mg Tablet) 1 mg PO DAILY [facility] Last Admin: 05/06/25 09:03 Dose: 1 mg Hydroxyzine HCl (Hydroxyzine Hcl 25 Mg Tablet) 25 mg PO Q6H PRN PRN Reason: mild anxiety Hydroxyzine HCl (Hydroxyzine Hcl 50 Mg Tablet) 50 mg PO TID [facility] Last Admin: 05/06/25 09:03 Dose: 50 mg Lacosamide (Lacosamide 100 Mg Tablet) 200 mg PO BID [facility] Last Admin: 05/06/25 09:04 Dose: 200 mg Lamotrigine 300 mg/ (Lamotrigine 50 mg) 350 mg PO BID [facility] Last Admin: 05/06/25 09:01 Dose: 350 mg Levetiracetam (Levetiracetam 500 Mg Tablet) 1,500 mg PO BID [facility] Last Admin: 05/06/25 09:02 Dose: 1,500 mg Magnesium Hydroxide (Milk Of Magnesia 30 Ml Oral.Susp) 30 ml PO DAILY PRN PRN Reason: Constipation Magnesium Oxide (Magnesium Oxide 400 Mg Tablet) 400 mg PO DAILY [facility] Last Admin: 05/06/25 09:04 Dose: 400 mg Nicotine (Nicotine 21 Mg Patch.Td24) 21 mg TRANSDERMA DAILY PRN PRN Reason: nicotine craving Nicotine Polacrilex (Nicotine Polacrilex 2 Mg Gum) 2 mg BUCCAL Q2H PRN PRN Reason: Nicotine Cravings Pt Own (Perampanel [ Fycompa] 6 Mg Tablet ) 6 mg PO BID [facility] Last Admin: 05/06/25 09:17 Dose: 6 mg Olanzapine (Olanzapine 5 Mg Tablet) 5 mg PO BID PRN PRN Reason: agitation Ondansetron HCl (Ondansetron Odt 4 Mg Tab.Rapdis) 4 mg TRANSLINGU Q6H PRN PRN Reason: Nausea and Vomiting Last Admin: 04/30/25 23:24 Dose: 4 mg Sertraline HCl (Sertraline Hcl 25 Mg Tablet) 25 mg PO DAILY [facility] Last Admin: 05/06/25 09:04 Dose: 25 mg Trazodone HCl (Trazodone Hcl 50 Mg Tablet) 50 mg PO BEDTIME MRX1 PRN PRN Reason: Insomnia Last Admin: 05/01/25 01:05 Dose: 50 mg Allergies Allergies Allergy/AdvReac Type Severity Reaction Status Date / Time divalproex sodium (From Allergy Unknown Unknown Verified 04/26/25 19:53 Depakote) lorazepam Allergy Unknown Unknown Verified 04/26/25 19:53 medroxyprogesterone (From Allergy Unknown Unknown Verified 04/26/25 19:53 Depo-Provera) phenytoin (From Dilantin) Allergy Unknown Unknown Verified 04/26/25 19:53 Assessment & Plan Assessment & Plan (1) Serotonin syndrome: Status: Acute Code(s): G90.81 - Serotonin syndrome (2) Epilepsy: Qualifiers: Epilepsy type: unspecified Intractability: not intractable Status epilepticus: without status epilepticus Qualified Code(s): G40.909 - Epilepsy, unspecified, not intractable, without status epilepticus Status: Acute Code(s): G40.909 - Epilepsy, unspecified, not intractable, without status epilepticus (3) Status post VNS (vagus nerve stimulator) placement: Status: Acute Code(s): Z96.89 - Presence of other specified functional implants (4) MDD (major depressive disorder): Status: Acute Code(s): F32.9 - Major depressive disorder, single episode, unspecified (5) Anxiety: Status: Acute Code(s): F41.9 - Anxiety disorder, unspecified (6) Cognitive impairment: Status: Acute Code(s): R41.89 - Other symptoms and signs involving cognitive functions and awareness Plan HPI: 44-year-old [place]ican speaking Caucasia female with a PMH for MDD, seizure disorder (s/p meningitis 2003) with implanted neurostimulator, presented to the ED with erratic behavior and agitation. Patient was discharged home from [facility], however, while in the car she became overly agitated and had trouble regulating her thoughts and emotions. Patient is very poor historian and not a reliable person for hx and treatment intake d/t current mental status. She was recently admitted to [facility] from 04-24 to 04-[address] of the head which was negative for acute findings. She had an EEG which was negative for seizure activity she also seen by a neurologist. They were recommendations to adjust her seizure medications, discontinue sertraline and hold her BuSpar. Patient experienced sz episode in the ED pod on 04/28 and again on the unit in the evening. Nursing reports that one of the MHC was taking to patient and then patient began to shake her arms, unable to communicate , and began to drool which happened very quick. It resolved before nursing arrived to the scene. Patient was a bit disoriented afterwards. Nurses able to confirm home meds with mom. Need to do collateral to get hx of psychiatric illness/dx and treatment. Patient is poor historian. Not sure at this point if she should be on medication floor to monitor sz activities as it was reported that after 2099 patient had another sz episode. Hospital course: 04/29: continue with all home meds. Nurses able to confirm med list with mother. Patient is on Sz precaution. 04/30 most likely patient is recovering from serotonin syndrome. Patient's mother reports that patient has been on Zoloft 200 mg for years; also on BuSpar 10 mg t.i.d.. On 04/18 outpatient provider added Luvox 100 mg to the Zoloft and BuSpar. On 04/19 provider lowered Zoloft to 100 mg but kept her on Luvox 100 mg and BuSpar, all of which she was on for another week. Pt then became agitated and delirious, excessively sweaty, shivering, had a tremor and developed diarrhea... Also frequency of partial seizures increased. Patient was brought to [facility] ED but then discharged after few hours in the same condition; her mother thus brought her to [place] ED. Head Loft Worker discussed that combined history and presentation point to very likely patient had serotonin syndrome. Patient has been off Zoloft since coming to the ED; but she did get Luvox 100 mg. Patient's mother says she is definitely doing better and is probably a 6 or /10 (10 being patient has regular self). Head Loft Worker discussed serotonin syndrome as well as discontinuation syndrome from abruptly stopping SSRIs; discussed treatment options with which mother and patient agreed. -patient burping continuously; mother reports this is chronic and patient has appointment with GI Formulation/clinical reasoning: Seems very likely that patient developed serotonin syndrome from being on high doses of 2 SSRIs and BuSpar at once. Patient is now recovering, though is still with some residual delirium. At baseline patient has some cognitive impairment. Will add clonazepam bedtime dose for few days to help mitigate symptoms; will then add Zoloft 25 mg to mitigate discontinuation syndrome. -securities underwriter can find no evidence for psychogenic, nonepileptic seizures. 05/01: Patient continues to be disorganized. She also continues to express seizure episodes. No recent seizure episode witnessed by staff/nursing. Current working diagnosis is serotonin syndrome. Continue current treatment regimen. Plan to restart Zoloft but a low dose, 25 mg on 05/03 to avoid discontinuation syndrome. Patient's 3 day notice will tomorrow. She likely needs continued treatment after tomorrow; however, she does not have the capacity to signed a CV at this time. Per patient's social service agency director, patient's mom is her HCP. wardrobe specialty worker to obtain HCP documentation from patient's mom so it can be invoked. 05/02: Patient is alert oriented x3. Disorganized but a bit more clear and organized today. Notes situational anxiety and depression. Reports dizziness which is worse in the morning. Denies SI/HI/AH. Vital signs stable. Continue current treatment regimen. At this time, patient does not have the capacity to make or communicate informed health care decision, therefore, Healthcare proxy invoked by this provider today. Her mother is her healthcare proxy. HCP and signed CV in patient's paper chart. 05/03: Team reports gradual steady improvement. Pt able to express her concerns, with some disorganization today. Responds to reality orientation, positive re-enforcement of her coping and attempting to work out issues. Some mild paranoia over peers. Grief over loss of profession and having to manage chronic medical issues. Continue tx 05/04/25: Patient is fully engaged in conversation, appear more organized and more coherence to the content being discussed compared to when this provider first met patient on admission. She does not remember if she has any seizure episode or when was the last time she has seizure. Report that she is not a big fan of breakfast and only ate protein bar this morning. Report high in anxiety but less depression. Patient would like to return home with her daughter only but now she stays with her mom and her daughter. Denies hallucinations but report sometimes she sees dots but assume it could be when I am anxious . Report that she only showered once since admitted. Would like to shower with cold water. Nursing is made aware to help patient with shower and make sure we have staff around when patient showers for safety concerns. Mom is her caregiver and usually help her with ADL's at home. 05/05/25: Slept better than the night before, slightly improve in appetite, visible in the kitchen reading, have visit with mom. She is feeling like she is ready to go home, find some improving in mood but she is not sure as she thinks mom will know her better. Denies safety concerns, more organized, shower yesterday. No seizure activities, no irritability. Patient could be at her baseline. Plan CV by HCP Discontinue Luvox; patient is recovering from serotonin syndrome Discontinued BuSpar and will not restart Add clonazepam 0.5 mg q.h.s. for 3 days Start Zoloft 25 mg on 05/03 (SS will have been fully resolved for several days; start Zoloft to avoid discontinuation syndrome) Continue home medications regimen (securities underwriter reviewed with mother and with prescription history) Time Spent With Patient Time: Total time managing care of this patient today ____ minutes.
--- NOTE | 2025-05-06 10:28 | P.DS_ITS ---
DS: Providers Provider Date of Service: 06/05/25 Date of admission: 04/29/25 12:08 Date of discharge: 05/06/25 Primary care physician: Luis Fernando Liang MD Admitting clinician: Consuelo Jacobs Attending physician on discharge: Adan Rolle DS: Diagnosis Discharge Diagnosis (1) Serotonin syndrome: Status: Acute (2) Epilepsy: Status: Acute (3) Status post VNS (vagus nerve stimulator) placement: Status: Acute (4) MDD (major depressive disorder): Status: Acute (5) Anxiety: Status: Acute (6) Cognitive impairment: Status: Acute DS: Medications Discharge Medications Home Medications: Home Medications ?Medication ?Instructions ?Recorded ?Confirmed lacosamide 200 mg tablet (Vimpat) 200 mg PO BID 04/27/25 clobazam 10 mg tablet 10 mg PO BID 03/04/25 clonazepam 0.5 mg tablet (Klonopin) 0.5 mg PO DAILY 04/29/25 lamotrigine 100 mg tablet 350 mg PO BID 03/04/2504/27 levetiracetam 750 mg tablet 1,500 mg PO BID 03/04/25 0 04/27/25 clonazepam 1 mg tablet 1 mg PO DAILY@1700 04/29/25 04/29/25 folic acid 1 mg tablet 1 mg PO DAILY 04/29/2504/29 hydroxyzine HCl 50 mg tablet 50 mg PO TID 04/29/25 magnesium oxide 250 mg PO DAILY 04/29/25 Previous Rx's ?Medication ?Instructions ?Recorded perampanel 6 mg tablet (Fycompa) 6 mg PO BID 30 days # 60 tabs 03/22/25 sertraline 25 mg tablet 25 mg PO DAILY 25 days #25 t abs 05/06/25 Mental Status Exam Mental Status Exam Patient Appearance: Appropriate Patient Orientation: Person, Place, Time and Situation Level of Consciousness: Alert Patient Behavior: Talkative, Distractible and Good Eye Contact Behavior Comments: in good behavioral and impulse control Mood Description: Appropriate Affect Description: Anxious Patient Cognition Impaired: No Ability to Follow Directions: Good Speech Pattern: Spontaneous Speech Memory Description: Episodic Impaired Hallucinations: None Delusions: Not Present Thought Process: Goal Oriented Thought Content: positive for Circumstantial, positive for Goal Oriented and positive for Suicidal Ideation (none) Depressive Symptoms: Thoughts of /Suicide (denies) Judgement and Insight: adequate and at baseline Data Data Completed and Pending Completed studies during hospitalization [Text1]: 04/29/25 10:04 Urine Color [place] Urine Appearance Cloudy Urine pH 6.0 Ur Specific [place] >= 1.030 H Urine Protein 30 (1+) H Urine Glucose (UA) Negative Urine Ketones Trace Urine Blood Large (3+) H Urine Nitrite Negative Ur Leukocyte Esterase Trace H Urine RBC >20 H Urine WBC 11-20 H Ur Squamous Epith Cells >20 Urine Bacteria Trace Hyaline Casts 3-5 04/29/25 Unknown Urine clean catch - Clean Catch Midstream Urine Culture - Final DS: Summary Hospital Course Hospital Course: HPI: 44-year-old [place]an speaking Caucasia female with a PMH for MDD, seizure disorder (s/p meningitis 2003) with implanted neurostimulator, presented to the ED with erratic behavior and agitation in the context of being started on Luvox 100mg while also on Sertraline 200mg and Busbar 10mg TID. For this agitation she was taken to [facility] from 04-24 to 04-[address] of the head which was negative for acute findings. She had an EEG which was negative for seizure activity she also seen by a neurologist. They were recommendations to adjust her seizure medications, discontinue sertraline and hold her BuSpar. Patient was discharged home from [facility], however, while in the car she became overly agitated and had trouble regulating her thoughts and emotions. Patient is very poor historian and not a reliable person for hx and treatment intake d/t current mental status. Patient experienced sz episode in the ED pod on 04/28 and again on the unit in the evening. Nursing reports that one of the MHC was taking to patient and then patient began to shake her arms, unable to communicate , and began to drool which happened very quick. It resolved before nursing arrived to the scene. Patient was a bit disoriented afterwards. Nurses able to confirm home meds with mom. Not sure at this point if she should be on medication floor to monitor sz a ctivities as it was reported that after 2099 patient had another sz episode. Hospital course: 04/29: continue with all home meds. Nurses able to confirm med list with mother. Patient is on Sz precaution. 04/30 most likely patient is recovering from serotonin syndrome. Patient's mother reports that patient has been on Zoloft 200 mg for years; also on BuSpar 10 mg t.i.d.. On 04/18 outpatient provider added Luvox 100 mg to the Zoloft and BuSpar. On 04/19 provider lowered Zoloft to 100 mg but kept her on Luvox 100 mg and BuSpar, all of which she was on for another week. Pt then became agitated and delirious, excessively sweaty, shivering, had a tremor and developed diarrhea... Also frequency of partial seizures increased. Patient was brought to [facility] ED but then discharged after few hours in the same condition; her mother thus brought her to [place] ED. Applications Engineering Manager discussed that combined history and presentation point to very likely patient had serotonin syndrome. Patient has been off Zoloft since coming to the ED; but she did get Luvox 100 mg. Patient's mother says she is definitely doing better and is probably a 6 or /10 (10 being patient has regular self). Applications Engineering Manager discussed serotonin syndrome as well as discontinuation syndrome from abruptly stopping SSRIs; discussed treatment options with which mother and patient agreed. -patient burping continuously; mother reports this is chronic and patient has appointment with GI Formulation/clinical reasoning: Seems very likely that patient developed serotonin syndrome from being on high doses of 2 SSRIs and BuSpar at once. Patient is now recovering, though is still with some residual delirium. At baseline patient has some cognitive impairment. Will add clonazepam bedtime dose for few days to help mitigate symptoms; will then add Zoloft 25 mg to mitigate discontinuation syndrome. -automatic typewriter inspector can find no evidence for psychogenic, nonepileptic seizures. 05/01: Patient continues to be disorganized. She also continues to express seizure episodes. No recent seizure episode witnessed by staff/nursing. Current working diagnosis is serotonin syndrome. Continue current treatment regimen. Plan to restart Zoloft but a low dose, 25 mg on 05/03 to avoid discontinuation syndrome. Patient's 3 day notice will tomorrow. She likely needs continued treatment after tomorrow; however, she does not have the capacity to signed a CV at this time. Per patient's social media marketer, patient's mom is her HCP. alteration worker to obtain HCP documentation from patient's mom so it can be invoked. 05/02: Patient is alert oriented x3. Disorganized but a bit more clear and organized today. Notes situational anxiety and depression. Reports dizziness which is worse in the morning. Denies SI/HI/AH. Vital signs stable. Continue current treatment regimen. At this time, patient does not have the capacity to make or communicate informed health care decision, therefore, Healthcare proxy invoked by this provider today. Her mother is her healthcare proxy. HCP and signed CV in patient's paper chart. 05/03: Team reports gradual steady improvement. Pt able to express her concerns, with some disorganization today. Responds to reality orientation, positive re- enforcement of her coping and attempting to work out issues. Some mild paranoia over peers. Grief over loss of profession and having to manage chronic medical issues. Continue tx 05/04/25: Patient is fully engaged in conversation, appear more organized and more coherence to the content being discussed compared to on admission. She does not remember if she has any seizure episode or when was the last time she has seizure. Report high in anxiety but less depression. Patient would like to return home with her daughter only but now she stays with her mom and her daughter. Denies hallucinations but report sometimes she sees dots but assume it could be when I am anxious . Mom is her caregiver and usually help her with ADL's at home. 05/05/25: Slept better than the night before, slightly improve in appetite, visible in the kitchen reading, have visit with mom. She is feeling like she is ready to go home, find some improving in mood but she is not sure as she thinks mom will know her better. Denies safety concerns, more organized, shower yesterday. No seizure activities, no irritability. Patient could be at her baseline. 05/06 pt remains stable and looking forward to returning home; automatic typewriter inspector talked with her mother who agrees that patient is back to her baseline, regular self and feels she is ready to return home. Applications Engineering Manager discussed medications who understands and will follow up with outpt provider. Medications: Discontinue Luvox Discontinued BuSpar Started Zoloft 25 mg (on 05/03) to avoid discontinuation syndrome Status at Discharge Functional status at discharge: independent ambulation Overall status at discharge: patient is back to baseline Time Spent with Patient Time attestation: Total time managing care of this patient today __40__ minutes. Time spent: Greater than 30 minutes Specific discharge activities: met with patient; discussed with team; reviewed chart Discharge Plan Discharge Anticipated Discharge Date/Time: 05/11/25 13:00 Patient Disposition: Home, Self-Care Discharge Diagnosis: Serotonin Syndrome, resolved Referrals: [facility] [Other] - 05/15/25 3:00 pm Referral Note: Follow-up appointment with therapist 05/15/2025 03:00 PM - 03:45 PM Staff: Mattie Spears [facility] [employer] [Other] - 06/07/25 1:40 pm Referral Note: *Follow up appointment with medication prescriber 06/07/2025 01:40 PM - 02:00 PM Psychiatric E/M Established - Face To Face v2 Staff: JERILYN WEBER [place] [Other] - 05/09/25 9:00 am Referral Note: *Follow up appointment with Tamara Collins (phone call) Luis Fernando Schmitz MD [Primary Care Provider, Medical] - 1 Week Discharge Medications: Continued perampanel [Fycompa] 6 mg tablet 6 mg PO BID 30 Days Qty: 60 5RF clonazepam 1 mg Tablet 1 mg PO DAILY@1700 hydroxyzine HCl 50 mg tablet 50 mg PO TID Rx Instructions: 0900, 1500, 2100 folic acid 1 mg tablet 1 mg PO DAILY magnesium oxide 250 mg magnesium tablet 250 mg PO DAILY lacosamide [Vimpat] 200 mg tablet 200 mg PO BID clonazepam [Klonopin] 0.5 mg tablet 0.5 mg PO DAILY levetiracetam 750 mg tablet 1,500 mg PO BID clobazam 10 mg tablet 10 mg PO BID lamotrigine 100 mg tablet 350 mg PO BID Changed sertraline 25 mg tablet 25 mg PO DAILY 25 Days Qty: 25 0RF Discontinued fluvoxamine 100 mg tablet 100 mg PO BEDTIME Discharge Orders: Discharge Order (Routine); Ordered 05/06/25 Ordered By: Adan Rolle Diet: Regular diet Activity on Discharge: As tolerated Stand Alone Forms: Patient Portal Discharge page Print Language: Comoran Care Plan Goals: Maintain mood and safe behaviors Take medications as prescribed Practice coping skills Continue with outpatient providers and reach out to them as needed Health Concerns: Mood stability and behaviors Seizure disorder Plan of Treatment: Follow up with your PCP, psychiatric provider and other outpatient providers regarding above concerns Take medications as prescribed Assessment: Risk assessment at time of discharge:? Patient was interviewed prior to discharge and found to be fully oriented and without any SI or HI. Patient has improved insight and judgment and wants to continue treatment. Patient is not in imminent risk of harm to self or others and has a safety plan that includes presenting to the closest ER or calling 911 if feeling unsafe.? Patient has been observed closely by nursing and unit staff throughout admission; patient has not engaged in any behaviors that suggest dangerousness to self or others and has demonstrated appropriate behaviors and impulse control
== END 2025-05-06 13:40 | disposition home or self-care (01) | DRG 881 ==
LOC: HO.ED 04-27 08:13 → HO.PM5 04-29 12:21
PROVIDERS: Physician Assistant; Psychiatry & Neurology Psychiatry; Admitting Provider Nurse Practitioner Psychiatric/Mental Health; Emergency Provider Emergency Medicine Emergency Medical Services; PCP Internal Medicine; Visit Provider Psychiatry & Neurology Psychiatry
DX: F32.9 Major depressive disorder, single episode, unspecified (principal); F41.9 Anxiety disorder, unspecified; G40.909 Epilepsy, unspecified, not intractable, without status epilepticus; G90.81 Serotonin syndrome; T43.225A Adverse effect of selective serotonin reuptake inhibitors, initial encounter; G09 Sequelae of inflammatory diseases of central nervous system; F06.70 Mild neurocognitive disorder due to known physiological condition without behavioral disturbance; Z96.82 Presence of neurostimulator; Z79.899 Other long term (current) drug therapy
CPT/HCPCS: 36415; 80053; 80143; 80179; 80307; 81001; 81025; 85025; 87086; 93005; 99285; S9485

== ENCOUNTER → 2025-04-26 19:39 | Outpatient (BNV) | payer MEDICARE, MEDICAID, SELFPAY | PROVIDERS: Emergency Provider Emergency Medicine Emergency Medical Services; PCP Internal Medicine; Visit Provider Internal Medicine Cardiovascular Disease | DX: F29 Unspecified psychosis not due to a substance or known physiological condition (principal) | CPT/HCPCS: 93010 ==

== ENCOUNTER → 2025-04-29 12:08 | Outpatient (BNV) | payer MEDICARE, MEDICAID, SELFPAY | PROVIDERS: Admitting Provider Nurse Practitioner Psychiatric/Mental Health; Emergency Provider Emergency Medicine Emergency Medical Services; PCP Internal Medicine; Visit Provider Nurse Practitioner Psychiatric/Mental Health | DX: F41.9 Anxiety disorder, unspecified (principal); G40.909 Epilepsy, unspecified, not intractable, without status epilepticus; Z96.89 Presence of other specified functional implants | CPT/HCPCS: 90792; 99232; 99239 ==

== ENCOUNTER → 2025-04-29 12:08 | Outpatient (BNV) | payer MEDICARE, MEDICAID, SELFPAY | PROVIDERS: Admitting Provider Nurse Practitioner Psychiatric/Mental Health; Emergency Provider Emergency Medicine Emergency Medical Services; PCP Internal Medicine; Visit Provider Nurse Practitioner Family | DX: G40.909 Epilepsy, unspecified, not intractable, without status epilepticus (principal) | CPT/HCPCS: 99221 ==